=== PATIENT | female | born 1945 | race Caucasian/White ===

== ENCOUNTER 2016-05-26 17:14 | Emergency (ER) | payer MEDICARE ==
[2016-05-26] MEDS ORDERED: MORPHINE IV ONE ×2 (17:18→23:58)
[2016-05-26] MEDS ORDERED: NORMODYNE IV ONE (17:27)
--- NOTE | 2016-05-26 18:02 | Emergency Department Report ---
ED Headache HPI - General Chief Complaint: Headache Stated Complaint: HEADACHE Time Seen by Provider: 05/26/16 17:16 - History of Present Illness Initial Comments: Patient is a 71-year-old female with history of hypertension, diabetes, chronic headaches presenting today because of severe right-sided headache. Patient states that the pain started last night and has slowly come on and gotten worse. She does not have any known history of an aneurysm. Went to see her primary doctor recently of these headaches and recurrent for years and was supposed to have an outpatient MRI in the next few days. Patient has no focal weakness, took tramadol at home with some mild relief. Allergies/Adverse Reactions: Allergies iodine Allergy (Verified 08/27/14 12:53) Rash propofol [From Diprivan] Adverse Reaction (Verified 05/26/16 18:32) Anaphylaxis Home Medications: Ambulatory Orders Advil 100 MG tab 200 mg PO PRN 10/21/15 Dexlansoprazole [Dexilant] 60 mg PO QDAY 10/21/15 Diazepam 10 mg PO HS 10/21/15 Escitalopram [Lexapro] 10 mg PO DAILY 10/21/15 Glimepiride [Amaryl] 2 mg PO BID 10/21/15 Glimepiride [Amaryl] 4 mg PO HS 10/21/15 Lovastatin [Altoprev] 10 mg PO HS 10/21/15 Metoprolol Tartrate 50 mg PO ONCE 10/21/15 amLODIPine [Norvasc] 10 mg PO DAILY 10/21/15 metFORMIN 1,000 mg PO BID 10/21/15 metFORMIN [Glucophage] 500 mg PO HS 10/21/15 Butalb/Acetaminophen/Caffeine [Fioricet 50-300-40 mg CAP] 1 cap PO Q8HR PRN #10 cap 05/27/16 oxyCODONE /ACETAMINOPHEN [Percocet 5/325] 1 tab PO Q6HR PRN #10 tablet 05/27/16 ED Review of Systems ROS: Stated complaint: HEADACHE Other details as noted in HPI Constitutional: no symptoms reported. denies: chills, fever Respiratory: denies: cough Cardiovascular: denies: chest pain Gastrointestinal: denies: abdominal pain, vomiting Skin: denies: rash Neurological: headache. denies: weakness, confusion ED Past Medical Hx - Past Medical History Hx Hypertension: Yes Hx Diabetes: Yes Hx Arthritis: Yes - Surgical History Hx Cholecystectomy: Yes Additional Surgical History: Hysterectomy - Social History Smoking Status: Never Smoker Substance Use Type: None - Medications Home Medications: Home Medications Medication Instructions Recorded Confirmed Last Taken Type Advil 100 MG tab 200 mg PO PRN 10/21/15 10/21/15 Unknown History Dexlansoprazole [Dexilant] 60 mg PO QDAY 10/21/15 10/21/15 Unknown History Diazepam 10 mg PO HS 10/21/15 10/21/15 Unknown History Escitalopram [Lexapro] 10 mg PO DAILY 10/21/15 10/21/15 Unknown History Glimepiride [Amaryl] 2 mg PO BID 10/21/15 10/21/15 Unknown History Glimepiride [Amaryl] 4 mg PO HS 10/21/15 10/21/15 Unknown History Lovastatin [Altoprev] 10 mg PO HS 10/21/15 10/21/15 Unknown History Metoprolol Tartrate 50 mg PO ONCE 10/21/15 10/21/15 Unknown History amLODIPine [Norvasc] 10 mg PO DAILY 10/21/15 10/21/15 Unknown History metFORMIN 1,000 mg PO BID 10/21/15 10/21/15 Unknown History metFORMIN [Glucophage] 500 mg PO HS 10/21/15 10/21/15 Unknown History Butalb/Acetaminophen/Caffeine 1 cap PO Q8HR PRN #10 cap 05/27/16 Unknown Rx [Fioricet 50-300-40 mg CAP] oxyCODONE /ACETAMINOPHEN [Percocet 1 tab PO Q6HR PRN #10 tablet 05/27/16 Unknown Rx 5/325] ED Physical Exam - General Limitations: No Limitations General appearance: alert - Head Head exam: Present: other (no tenderness to the right spiritism area). Absent: atraumatic - Eye Eye exam: Present: normal appearance, PERRL, EOMI. Absent: conjunctival injection, nystagmus, periorbital tenderness Pupils: Present: normal accommodation. Absent: irregular - ENT ENT exam: Present: TM's normal bilaterally (minimal erythema on both tympanic membranes, no exudate or narrowing of the ear canals) - Neck Neck exam: Absent: tenderness, meningismus - Cardiovascular Cardiovascular Exam: Present: regular rate. Absent: normal rhythm - GI/Abdominal GI/Abdominal exam: Present: soft. Absent: distended, tenderness - Extremities Exam Extremities exam: Present: normal inspection. Absent: tenderness - Neurological Exam Neurological exam: Present: alert, CN II-XII intact, other (sensation in all extremities is intact, strength is 5 out of 5 proximally and distally in all extremities, speech is normal and appropriate). Absent: motor sensory deficit - Psychiatric Psychiatric exam: Present: anxious - Skin Skin exam: Present: intact ED Course Vital Signs 05/26/16 05/26/16 05/26/16 17:16 17:18 17:43 Temperature 97.6 F Pulse Rate 61 61 Respiratory 22 20 11 L Rate Blood Pressure Blood Pressure 210/105 213/110 [Left] O2 Sat by Pulse 98 97 Oximetry 05/26/16 05/26/16 18:30 19:21 Temperature Pulse Rate 73 77 Respiratory 12 Rate Blood Pressure 230/115 Blood Pressure 198/98 [Left] O2 Sat by Pulse 98 Oximetry - Reevaluation(s) Reevaluation #1: 05/26/16 18:40 Patient resting comfortably now does not appear in any pain Reevaluation #2: 05/26/16 21:19 Patient still having headache. and family friend revealed that the patient has significant stress right now and she is not speaking to her daughter. They think that this may be a stressor that is primarily causing the symptoms. The patient does have severe headache will do a CTA to rule out any sort of medial more large aneurysm. We'll give pretreatment with Benadryl and hydrocortisone since patient has an allergy to contrast. Reevaluation #3: 05/26/16 23:57 Patient reexamined and still having headache. Her BP improved to 170/100 at this time. 05/26/16 23:59 Reevaluation #4: 05/27/16 00:48 CT of the head without contrast and ct of the head showed no acute abnormalities including no aneurysm. a recent mri in january of last year was also reviewed and showed no significant abnormalities. I offered the patient admission due to her intractable pain, I discussed with the hospitalist plan for admission. I talked to the patient again and she has changed her mind and she preferred to go home. We'll send home with some pain medication and primary care follow-up 05/27/16 01:07 ED Medical Decision Making - Lab Data Result diagrams: 05/26/16 18:20 05/26/16 18:20 - Medical Decision Making IV, labs, head CT, EKG EKG shows sinus bradycardia at a rate of 59, no ST-T changes, unremarkable EKG Labs unremarkable without leukocytosis which could be explained by pain as there is no other clear etiology for it. ESR and CRP checked to look for signs of chance arteritis given that the pain is on the spiritism, these are both normal which significantly decreased the probability of GCA Critical care attestation.: If time is entered above; I have spent that time in minutes in the direct care of this critically ill patient, excluding procedure time. ED Disposition Clinical Impression: Headache Qualifiers: Headache type: unspecified Headache chronicity pattern: unspecified pattern Intractability: intractable Qualified Code(s): R51 - Headache Disposition: DISCHARGED TO HOME OR SELFCARE Is pt being admited?: No Does the pt Need Aspirin: No Condition: Stable Instructions: Acute Headache (ED) Additional Instructions: Please follow up with your primary care doctor in the next 3-5 days. Please also follow up with a neurologist within the next 1-2 weeks. It is important that you return immediately to the emergency room if you notice any numbness in her arms or legs, weakness in her arms or legs, vomiting, neck rigidity or any new symptoms. Do not drive or operate heavy machinery while taking pain medications as they will make you drowsy. Prescriptions: Butalb/Acetaminophen/Caffeine [Fioricet 50-300-40 mg CAP] 1 cap PO Q8HR PRN #10 cap PRN Reason: Pain oxyCODONE /ACETAMINOPHEN [Percocet 5/325] 1 tab PO Q6HR PRN #10 tablet PRN Reason: Pain Referrals: PRIMARY CARE, [Primary Care Provider] - 3-5 Days
[2016-05-26] MEDS ORDERED: ZOFRAN ONE (18:23)
--- NOTE | 2016-05-26 18:23 | Cat Scan Report ---
FINAL REPORT EXAM: CT HEAD/BRAIN WO CON HISTORY: severe right sided headache TECHNIQUE: CT of the head was performed without intravenous contrast. PRIORS: 10/21/2015. FINDINGS: The ventricles are normal in shape and position. The ventricles are nondilated. No intracranial hemorrhage, mass, mass effect, midline shift or evidence of acute ischemic infarct. The basilar cisterns are patent. The paranasal sinuses are clear. The extracranial soft tissues demonstrate no abnormality. The calvarium is intact. The orbits are intact. The mastoid air cells are clear. IMPRESSION: No acute intracranial abnormality.
[2016-05-26] MEDS ORDERED: ZOFRAN IV ONE (18:25)
[2016-05-26] MEDS ORDERED: TORADOL IV ONE (18:37)
[2016-05-26] MEDS ORDERED: REGLAN IV ONE (18:37)
[2016-05-26 18:38] LABS: Hematocrit 47.3 % (30.3-42.9); Mean Corpuscular HGB Conc 34 % (30-34); Mean Corpuscular Hemoglobin 32 pg (28-32); Mean Corpuscular Volume 94 fl (79-97); Platelet Count 203 K/mm3 (140-440); Red Blood Count 5.04 M/mm3 (3.65-5.03); Red Cell Distribution Width 12.9 % (13.2-15.2); White Blood Count 12.8 K/mm3 (4.5-11.0)
[2016-05-26 18:59] LABS: Anion Gap 21 mmol/L; BUN/Creatinine Ratio 28.33; Blood Urea Nitrogen 17 mg/dL (7-17); Calcium 8.7 mg/dL (8.4-10.2); Carbon Dioxide 26 mmol/L (22-30); Chloride 96.3 mmol/L (98-107); Glucose 120 mg/dL (65-100); Potassium 4.6 mmol/L (3.6-5.0); Sodium 139 mmol/L (137-145)
[2016-05-26 19:00] LABS: Erythrocyte Sedimentation Rate 1 mm/Hr (0-20)
[2016-05-26] MEDS ORDERED: TORADOL ONE (19:15)
[2016-05-26] MEDS ORDERED: NACL ONE (20:22)
[2016-05-26] MEDS ORDERED: BENADRYL IV ONE (20:31)
[2016-05-26 21:17] LABS: RBC,Urine < 1.0 /HPF (0.0-6.0); WBC,Urine < 1.0 /HPF (0.0-6.0)
[2016-05-26 21:27] LABS: Bilirubin,Urine Negative (Negative); Blood,Urine Negative (Negative); Ketones,Urine Negative (Negative); Leukocyte Esterase,Urine Negative (Negative); Nitrite,Urine Negative (Negative); Protein,Urine <15 mg/dL mg/dL (Negative); Urobilinogen,Urine < 2.0 mg/dL (<2.0)
--- NOTE | 2016-05-26 23:16 | Cat Scan Report ---
FINAL REPORT PROCEDURE: CT angiogram head. TECHNIQUE: Computerized tomographic angiography of the head was performed after the IV injection of iodinated nonionic contrast including image processing. The image data was postprocessed using 2-dimensional multiplanar reformatted (MPR) and 3-dimensional (MIP and/or volume rendered) techniques. HISTORY: Severe headache. COMPARISON: Unenhanced head CT scan 05/26/2016. FINDINGS: There is moderate atherosclerotic narrowing of the cavernous portion of the right internal carotid artery. The distal left internal carotid artery has a more normal caliber. The A1 segment of the right anterior cerebral artery is hypoplastic. The left A1 segment has a normal caliber. Both anterior cerebral arteries fill via a patent anterior communicating artery. The posterior communicating arteries are not visualized. Both distal vertebral arteries are patent. The left posterior inferior cerebellar artery is patent. 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 The basilar artery is patent. The right anterior inferior cerebellar artery is patent and probably supplies both the [place] and [place] territories. Both superior cerebellar arteries are patent. The left posterior cerebral artery is patent. The right posterior cerebral artery is small and incompletely visualized. There is no evidence of aneurysm disease. There are no signs of a vasculitis. The brain parenchyma appears normal. There are no signs of abnormal contrast enhancement. 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 Incomplete visualization of the right posterior cerebral artery. No evidence of aneurysm disease.
[2016-05-27 01:32] VITALS: BP 151/83
== END 2016-05-27 01:31 | disposition home or self-care (01) ==
LOC: ED 17:14
DX: R51 Headache (principal); I10 Essential (primary) hypertension; E11.9 Type 2 diabetes mellitus without complications; Z87.39 Personal history of other diseases of the musculoskeletal system and connective tissue; Z90.710 Acquired absence of both cervix and uterus
CPT/HCPCS: 36415; 70450; 70496; 80048; 81001; 84484; 85027; 85652; 86140; 93005; 93010; 96374; 96375; 96376; 99284; J1200; J1720; J1885; J2270; J2405; Q9967

== ENCOUNTER 2017-02-06 23:11 | Emergency (ER) | payer MEDICARE ==
[2017-02-06 23:50] LABS: Basophils % (Auto) 0.6 % (0.0-1.8); Eosinophils % (Auto) 3.7 % (0.0-4.3); Hematocrit 42.7 % (30.3-42.9); Hemoglobin 14.5 gm/dl (10.1-14.3); Mean Corpuscular HGB Conc 34 % (30-34); Mean Corpuscular Hemoglobin 32 pg (28-32); Mean Corpuscular Volume 94 fl (79-97); Platelet Count 210 K/mm3 (140-440); Red Blood Count 4.52 M/mm3 (3.65-5.03); Red Cell Distribution Width 13.2 % (13.2-15.2); White Blood Count 10.5 K/mm3 (4.5-11.0)
[2017-02-07 00:12] LABS: Alanine Aminotransferase 22 units/L (7-56); Albumin/Globulin Ratio 1.5 %; Alkaline Phosphatase 55 units/L (35-129); BUN/Creatinine Ratio 33; Blood Urea Nitrogen 26 mg/dL (7-17); Calcium 8.4 mg/dL (8.4-10.2); Carbon Dioxide 27 mmol/L (22-30); Chloride 99.4 mmol/L (98-107); Glucose 275 mg/dL (65-100); Potassium 4.2 mmol/L (3.6-5.0); Sodium 140 mmol/L (137-145); Total Protein 6.7 g/dL (6.3-8.2)
[2017-02-07 00:46] LABS: Anion Gap 18 mmol/L
[2017-02-07] MEDS ORDERED: NACL 0.9% 1000 ML 1,000 ML IV ONE (03:08)
--- NOTE | 2017-02-07 03:37 | Emergency Department Report ---
ED General Adult HPI - General Chief complaint: Hyperglycemia Stated complaint: HIGH BLOOD SUGAR Time Seen by Provider: 02/07/17 03:29 Source: patient Mode of arrival: Ambulatory Limitations: Language Barrier - History of Present Illness Initial comments: 71-year-old female presents with complaint of bilateral ear pain for the last 4 days and elevated blood sugar. Patient states she's had elevated blood sugars in the 300s over the course last several days. She denies fevers chills nausea vomiting. States she's had some ear pressure over the last 4 days. No change in her hearing. She feels the pain is worse in the morning. -: days(s) (4) Location: head Radiation: non-radiation Quality: aching Consistency: constant Improves with: none Associated Symptoms: weakness. denies: confusion, chest pain, cough, diaphoresis, fever/chills, headaches, loss of appetite, malaise, nausea/vomiting - Related Data Home Medications Medication Instructions Recorded Confirmed Last Taken Advil 100 MG tab 200 mg PO PRN 10/21/15 10/21/15 Unknown Dexlansoprazole [Dexilant] 60 mg PO QDAY 10/21/15 10/21/15 Unknown Diazepam 10 mg PO HS 10/21/15 10/21/15 Unknown Escitalopram [Lexapro] 10 mg PO DAILY 10/21/15 10/21/15 Unknown Glimepiride [Amaryl] 2 mg PO BID 10/21/15 10/21/15 Unknown Glimepiride [Amaryl] 4 mg PO HS 10/21/15 10/21/15 Unknown Lovastatin [Altoprev] 10 mg PO HS 10/21/15 10/21/15 Unknown Metoprolol Tartrate 50 mg PO ONCE 10/21/15 10/21/15 Unknown amLODIPine [Norvasc] 10 mg PO DAILY 10/21/15 10/21/15 Unknown metFORMIN 1,000 mg PO BID 10/21/15 10/21/15 Unknown metFORMIN [Glucophage] 500 mg PO HS 10/21/15 10/21/15 Unknown Previous Rx's Medication Instructions Recorded Last Taken Type Butalb/Acetaminophen/Caffeine 1 cap PO Q8HR PRN #10 cap 05/27/16 Unknown Rx [Fioricet 50-300-40 mg CAP] oxyCODONE /ACETAMINOPHEN [Percocet 1 tab PO Q6HR PRN #10 tablet 05/27/16 Unknown Rx 5/325] Fluticasone [Flonase] 1 spray NS QDAY #1 bottle 02/07/17 Unknown Rx Oxymetazoline HCl [Nasal Pinon] 30 ml NS Q2HR #1 mist 02/07/17 Unknown Rx Allergies Allergy/AdvReac Type Severity Reaction Status Date / Time iodine Allergy Rash Verified 08/27/14 12:53 propofol [From Diprivan] AdvReac Anaphylaxis Verified 05/26/16 18:32 ED Review of Systems ROS: Stated complaint: HIGH BLOOD SUGAR Other details as noted in HPI Comment: All other systems reviewed and negative Eyes: denies: eye pain, eye discharge, vision change ENT: ear pain. denies: throat pain, dental pain Respiratory: denies: cough, orthopnea, shortness of breath Cardiovascular: denies: chest pain, palpitations Gastrointestinal: denies: abdominal pain, nausea Musculoskeletal: denies: back pain, joint swelling, arthralgia ED Past Medical Hx - Past Medical History Previous Medical History?: Yes Hx Hypertension: Yes Hx Diabetes: Yes Hx Arthritis: Yes - Surgical History Past Surgical History?: Yes Hx Cholecystectomy: Yes Additional Surgical History: Hysterectomy - Family History Family history: no significant - Social History Smoking Status: Never Smoker Substance Use Type: None - Medications Home Medications: Home Medications Medication Instructions Recorded Confirmed Last Taken Type Advil 100 MG tab 200 mg PO PRN 10/21/15 10/21/15 Unknown History Dexlansoprazole [Dexilant] 60 mg PO QDAY 10/21/15 10/21/15 Unknown History Diazepam 10 mg PO HS 10/21/15 10/21/15 Unknown History Escitalopram [Lexapro] 10 mg PO DAILY 10/21/15 10/21/15 Unknown History Glimepiride [Amaryl] 2 mg PO BID 10/21/15 10/21/15 Unknown History Glimepiride [Amaryl] 4 mg PO HS 10/21/15 10/21/15 Unknown History Lovastatin [Altoprev] 10 mg PO HS 10/21/15 10/21/15 Unknown History Metoprolol Tartrate 50 mg PO ONCE 10/21/15 10/21/15 Unknown History amLODIPine [Norvasc] 10 mg PO DAILY 10/21/15 10/21/15 Unknown History metFORMIN 1,000 mg PO BID 10/21/15 10/21/15 Unknown History metFORMIN [Glucophage] 500 mg PO HS 10/21/15 10/21/15 Unknown History Butalb/Acetaminophen/Caffeine 1 cap PO Q8HR PRN #10 cap 05/27/16 Unknown Rx [Fioricet 50-300-40 mg CAP] oxyCODONE /ACETAMINOPHEN [Percocet 1 tab PO Q6HR PRN #10 tablet 05/27/16 Unknown Rx 5/325] Fluticasone [Flonase] 1 spray NS QDAY #1 bottle 02/07/17 Unknown Rx Oxymetazoline HCl [Nasal Pinon] 30 ml NS Q2HR #1 mist 02/07/17 Unknown Rx ED Physical Exam - General Limitations: Language Barrier General appearance: alert, in no apparent distress - Head Head exam: Present: atraumatic, normocephalic - Eye Eye exam: Present: normal appearance, PERRL, EOMI. Absent: scleral icterus, conjunctival injection - ENT ENT exam: Present: mucous membranes moist, normal external ear exam - Expanded ENT Exam Expanded TM/Canal exam: Bulging: Right TM, Left TM (no erythema) - Neck Neck exam: Present: normal inspection - Respiratory Respiratory exam: Present: normal lung sounds bilaterally. Absent: respiratory distress, wheezes - Cardiovascular Cardiovascular Exam: Present: regular rate, normal rhythm, normal heart sounds. Absent: systolic murmur, diastolic murmur, rubs, gallop - GI/Abdominal GI/Abdominal exam: Present: soft, normal bowel sounds. Absent: distended, tenderness - Extremities Exam Extremities exam: Present: normal inspection - Back Exam Back exam: Present: normal inspection - Neurological Exam Neurological exam: Present: alert, oriented X3 - Psychiatric Psychiatric exam: Present: normal affect, normal mood - Skin Skin exam: Present: warm, dry, intact, normal color. Absent: rash ED Course Vital Signs 02/06/17 02/06/17 02/07/17 23:19 23:24 03:30 Temperature 98.0 F 98.0 F 98.1 F Pulse Rate 61 53 L 85 Respiratory 18 17 16 Rate Blood Pressure 188/89 188/89 Blood Pressure 129/75 [Left] O2 Sat by Pulse 96 96 98 Oximetry ED Medical Decision Making - Lab Data Result diagrams: 02/06/17 23:33 02/06/17 23:33 Laboratory Results - last 24 hr 02/06/17 02/06/17 02/06/17 23:22 23:33 23:33 WBC 10.5 RBC 4.52 Hgb 14.5 H Hct 42.7 MCV 94 MCH 32 MCHC 34 RDW 13.2 Plt Count 210 Lymph % (Auto) 35.6 H [place] % (Auto) 8.9 H Eos % (Auto) 3.7 Baso % (Auto) 0.6 Lymph # 3.7 [place] # 0.9 H Eos # 0.4 Baso # 0.1 Seg Neutrophils % 51.2 Seg Neutrophils # 5.4 Sodium 140 Potassium 4.2 Chloride 99.4 Carbon Dioxide 27 Anion Gap 18 BUN 26 H Creatinine 0.8 Estimated GFR > 60 BUN/Creatinine Ratio 33 Glucose 275 H POC Glucose 259 H Calcium 8.4 Total Bilirubin 0.20 AST 27 ALT 22 Alkaline Phosphatase 55 Total Protein 6.7 Albumin 4.0 Albumin/Globulin Ratio 1.5 - Medical Decision Making 71-year-old female here with slightly elevated blood sugars and ear pain. Patient states she's had bilateral pain for the past 4 days. She has slightly bulging TMs without evidence of infection. Plan to treat her with nasal saline and steroids. Discussed need to monitor blood sugars closely while using any steroids. Rest of chemistries appear unremarkable. Plan discharge patient home after IV fluids. Portions of this chart were dictated with dictation software. There may be dictation errors contained within this note. Critical care attestation.: If time is entered above; I have spent that time in minutes in the direct care of this critically ill patient, excluding procedure time. ED Disposition Clinical Impression: Ear ache, Hyperglycemia Disposition: - TO HOME OR SELFCARE Is pt being admited?: No Condition: Stable Prescriptions: Fluticasone [Flonase] 1 spray NS QDAY #1 bottle Oxymetazoline HCl [Nasal Pinon] 30 ml NS Q2HR #1 mist Referrals: PRIMARY CARE, [Primary Care Provider] - 3-5 Days
[2017-02-07 04:29] LABS: Bilirubin,Urine NEG (Negative); Blood,Urine NEG (Negative); Ketones,Urine NEG (Negative); Leukocyte Esterase,Urine TR (Negative); Mucus,Urine 3+ /HPF; Nitrite,Urine NEG (Negative); Protein,Urine <15 mg/dL mg/dL (Negative)
[2017-02-07 05:09] VITALS: BP 111/75
== END 2017-02-07 05:11 | disposition home or self-care (01) ==
LOC: ED 23:11
DX: E11.65 Type 2 diabetes mellitus with hyperglycemia (principal); H92.03 Otalgia, bilateral
CPT/HCPCS: 36415; 80053; 81001; 82962; 85025; 96360; 99283; J7030

== ENCOUNTER 2017-03-30 16:18 | Emergency (ER) | payer MEDICARE ==
[2017-03-30 17:34] LABS: Basophils % (Auto) 0.6 % (0.0-1.8); Eosinophils % (Auto) 3.9 % (0.0-4.3); Hematocrit 42.6 % (30.3-42.9); Hemoglobin 14.6 gm/dl (10.1-14.3); Mean Corpuscular HGB Conc 34 % (30-34); Mean Corpuscular Hemoglobin 33 pg (28-32); Mean Corpuscular Volume 95 fl (79-97); Platelet Count 212 K/mm3 (140-440); Red Blood Count 4.47 M/mm3 (3.65-5.03); Red Cell Distribution Width 12.6 % (13.2-15.2); White Blood Count 11.7 K/mm3 (4.5-11.0)
[2017-03-30 17:39] LABS: Anion Gap 20 mmol/L; BUN/Creatinine Ratio 30; Blood Urea Nitrogen 21 mg/dL (7-17); Calcium 8.5 mg/dL (8.4-10.2); Carbon Dioxide 27 mmol/L (22-30); Chloride 96.2 mmol/L (98-107); Glucose 269 mg/dL (65-100); Potassium 4.9 mmol/L (3.6-5.0); Sodium 138 mmol/L (137-145)
[2017-03-30] MEDS ORDERED: PROVENTIL IH ONE (23:44)
[2017-03-30] MEDS ORDERED: ATROVENT IH ONE (23:44)
--- NOTE | 2017-03-31 01:24 | Emergency Department Report ---
- General Chief Complaint: Upper Respiratory Infection Stated Complaint: CHEST PAIN,COUGHING Time Seen by Provider: 03/30/17 23:36 Source: patient, family Mode of arrival: Ambulatory Limitations: Language Barrier - History of Present Illness Initial Comments: Patient with cough and chest pain progressively worse for over a month after she got her flu shot. She has not taken any meds. She does have DM but her last A1c was 7.0. No F/C. MD Complaint: cough, sore throat, rhinorrhea, nasal congestion -: Gradual, week(s) (4) Severity: moderate Severity scale (0 -10): 4 Quality: dull Consistency: constant Improves With: nothing Worsens With: nothing Associated Symptoms: denies other symptoms, rhinorrhea, cough Treatments Prior to Arrival: Acetaminophen - Related Data Home Medications Medication Instructions Recorded Confirmed Last Taken Advil 100 MG tab 200 mg PO PRN 10/21/15 10/21/15 Unknown Dexlansoprazole [Dexilant] 60 mg PO QDAY 10/21/15 10/21/15 Unknown Diazepam 10 mg PO HS 10/21/15 10/21/15 Unknown Escitalopram [Lexapro] 10 mg PO DAILY 10/21/15 10/21/15 Unknown Glimepiride [Amaryl] 2 mg PO BID 10/21/15 10/21/15 Unknown Glimepiride [Amaryl] 4 mg PO HS 10/21/15 10/21/15 Unknown Lovastatin [Altoprev] 10 mg PO HS 10/21/15 10/21/15 Unknown Metoprolol Tartrate 50 mg PO ONCE 10/21/15 10/21/15 Unknown amLODIPine [Norvasc] 10 mg PO DAILY 10/21/15 10/21/15 Unknown metFORMIN 1,000 mg PO BID 10/21/15 10/21/15 Unknown metFORMIN [Glucophage] 500 mg PO HS 10/21/15 10/21/15 Unknown Previous Rx's Medication Instructions Recorded Last Taken Type Butalb/Acetaminophen/Caffeine 1 cap PO Q8HR PRN #10 cap 05/27/16 Unknown Rx [Fioricet 50-300-40 mg CAP] oxyCODONE /ACETAMINOPHEN [Percocet 1 tab PO Q6HR PRN #10 tablet 05/27/16 Unknown Rx 5/325] Fluticasone [Flonase] 1 spray NS QDAY #1 bottle 02/07/17 Unknown Rx Oxymetazoline HCl [Nasal Conway] 30 ml NS Q2HR #1 mist 02/07/17 Unknown Rx Albuterol Sulfate [Albuterol 0.63% 0.63 mg IH TID PRN #25 ml 03/31/17 Unknown Rx NEBS] predniSONE [Deltasone] 20 mg PO QDAY 5 Days #5 tab 03/31/17 Unknown Rx Allergies Allergy/AdvReac Type Severity Reaction Status Date / Time iodine Allergy Rash Verified 08/27/14 12:53 propofol [From Diprivan] AdvReac Anaphylaxis Verified 05/26/16 18:32 ED Review of Systems ROS: Stated complaint: CHEST PAIN,COUGHING Other details as noted in HPI Constitutional: denies: chills, fever Eyes: denies: eye pain, eye discharge, vision change ENT: denies: ear pain, throat pain Respiratory: cough, SOB with exertion, SOB at rest. denies: shortness of breath , wheezing Cardiovascular: denies: chest pain, palpitations Endocrine: no symptoms reported Gastrointestinal: denies: abdominal pain, nausea, diarrhea Genitourinary: denies: urgency, dysuria, discharge Musculoskeletal: denies: back pain, joint swelling, arthralgia Skin: denies: rash, lesions Neurological: denies: headache, weakness, paresthesias Psychiatric: denies: anxiety, depression Hematological/Lymphatic: denies: easy bleeding, easy bruising ED Past Medical Hx - Past Medical History Previous Medical History?: Yes Hx Hypertension: Yes Hx Diabetes: Yes Hx Arthritis: Yes - Surgical History Past Surgical History?: Yes Hx Cholecystectomy: Yes Additional Surgical History: Hysterectomy - Social History Smoking Status: Never Smoker Substance Use Type: None - Medications Home Medications: Home Medications Medication Instructions Recorded Confirmed Last Taken Type Advil 100 MG tab 200 mg PO PRN 10/21/15 10/21/15 Unknown History Dexlansoprazole [Dexilant] 60 mg PO QDAY 10/21/15 10/21/15 Unknown History Diazepam 10 mg PO HS 10/21/15 10/21/15 Unknown History Escitalopram [Lexapro] 10 mg PO DAILY 10/21/15 10/21/15 Unknown History Glimepiride [Amaryl] 2 mg PO BID 10/21/15 10/21/15 Unknown History Glimepiride [Amaryl] 4 mg PO HS 10/21/15 10/21/15 Unknown History Lovastatin [Altoprev] 10 mg PO HS 10/21/15 10/21/15 Unknown History Metoprolol Tartrate 50 mg PO ONCE 10/21/15 10/21/15 Unknown History amLODIPine [Norvasc] 10 mg PO DAILY 10/21/15 10/21/15 Unknown History metFORMIN 1,000 mg PO BID 10/21/15 10/21/15 Unknown History metFORMIN [Glucophage] 500 mg PO HS 10/21/15 10/21/15 Unknown History Butalb/Acetaminophen/Caffeine 1 cap PO Q8HR PRN #10 cap 05/27/16 Unknown Rx [Fioricet 50-300-40 mg CAP] oxyCODONE /ACETAMINOPHEN [Percocet 1 tab PO Q6HR PRN #10 tablet 05/27/16 Unknown Rx 5/325] Fluticasone [Flonase] 1 spray NS QDAY #1 bottle 02/07/17 Unknown Rx Oxymetazoline HCl [Nasal Conway] 30 ml NS Q2HR #1 mist 02/07/17 Unknown Rx Albuterol Sulfate [Albuterol 0.63% 0.63 mg IH TID PRN #25 ml 03/31/17 Unknown Rx NEBS] predniSONE [Deltasone] 20 mg PO QDAY 5 Days #5 tab 03/31/17 Unknown Rx ED Physical Exam - General Limitations: Language Barrier General appearance: alert, in no apparent distress - Head Head exam: Present: atraumatic, normocephalic - Eye Eye exam: Present: normal appearance - ENT ENT exam: Present: mucous membranes moist - Neck Neck exam: Present: normal inspection - Respiratory Respiratory exam: Present: normal lung sounds bilaterally, wheezes (Faint wheeze with deep breathing. Improved after nebulizer treatment.). Absent: respiratory distress - Cardiovascular Cardiovascular Exam: Present: regular rate, normal rhythm. Absent: systolic murmur, diastolic murmur, rubs, gallop - GI/Abdominal GI/Abdominal exam: Present: soft, normal bowel sounds - Extremities Exam Extremities exam: Present: normal inspection - Back Exam Back exam: Present: normal inspection - Neurological Exam Neurological exam: Present: alert, oriented X3 - Psychiatric Psychiatric exam: Present: normal affect, normal mood - Skin Skin exam: Present: warm, dry, intact, normal color. Absent: rash ED Course Vital Signs 03/30/17 03/30/17 03/30/17 16:46 23:20 23:30 Temperature 98.1 F Pulse Rate 75 76 72 Pulse Rate [ Anterior Bilateral Throughout] Respiratory 20 12 15 Rate Respiratory Rate [Anterior Bilateral Throughout] Blood Pressure 177/92 171/78 O2 Sat by Pulse 95 Oximetry 03/30/17 03/31/17 03/31/17 23:45 00:42 00:56 Temperature Pulse Rate 81 66 Pulse Rate [ 67 Anterior Bilateral Throughout] Respiratory 17 14 Rate Respiratory 18 Rate [Anterior Bilateral Throughout] Blood Pressure 179/92 O2 Sat by Pulse Oximetry 03/31/17 03/31/17 01:00 01:22 Temperature Pulse Rate Pulse Rate [ 81 Anterior Bilateral Throughout] Respiratory 18 Rate Respiratory 17 Rate [Anterior Bilateral Throughout] Blood Pressure O2 Sat by Pulse Oximetry ED Medical Decision Making - Lab Data Result diagrams: 03/30/17 17:04 03/30/17 17:04 - EKG Data EKG shows normal: sinus rhythm, axis, intervals, QRS complexes, ST-T waves Rate: normal - EKG Data Interpretation: normal EKG - Radiology Data Radiology results: report reviewed CXR wnl. no acute findings. - Medical Decision Making patient with asthmatic bronchitis. Will do steroid shot and prednisone low dose for 5 days with albuterol. She appears to have controlled DM but I did warn patient about elevated glucose with steroids. Will need to follow up with her PCP.Patient was given clonidine 0.2 mg to help reduce her BP. Critical care attestation.: If time is entered above; I have spent that time in minutes in the direct care of this critically ill patient, excluding procedure time. ED Disposition Clinical Impression: Reactive airway disease Qualifiers: Asthma severity: moderate Asthma persistence: persistent Asthma complication type: with acute exacerbation Qualified Code(s): J45.41 - Moderate persistent asthma with (acute) exacerbation Hypertension Qualifiers: Hypertension type: essential hypertension Qualified Code(s): I10 - Essential ( primary) hypertension Disposition: DC-01 TO HOME OR SELFCARE Is pt being admited?: No Does the pt Need Aspirin: No Condition: Good Instructions: Hypertension (ED), Reactive Airways Disease (ED) Prescriptions: Albuterol Sulfate [Albuterol 0.63% NEBS] 0.63 mg IH TID PRN #25 ml PRN Reason: Wheezing predniSONE [Deltasone] 20 mg PO QDAY 5 Days #5 tab Referrals: PRIMARY CARE, [Primary Care Provider] - 3-5 Days GABRIELE ABRAHAM MD [Staff Physician] - 3-5 Days Time of Disposition: 01:39
[2017-03-31] MEDS ORDERED: CATAPRES PO ONE (01:32)
[2017-03-31 03:05] VITALS: BP 183/98
--- NOTE | 2017-03-31 07:30 | XRay Report ---
ROUTINE CHEST, TWO VIEWS: HISTORY: Shortness of breath. The trachea, heart, mediastinal contour, lung bhat and bony thorax are unremarkable. IMPRESSION: Unremarkable chest x-ray.
== END 2017-03-31 02:45 | disposition home or self-care (01) ==
LOC: ED 16:18
DX: J45.41 Moderate persistent asthma with (acute) exacerbation (principal); I10 Essential (primary) hypertension; E11.9 Type 2 diabetes mellitus without complications
CPT/HCPCS: 36415; 71020; 80048; 82962; 83880; 84484; 85025; 93005; 93010; 94640

== ENCOUNTER 2017-06-06 12:14 | Outpatient (CLI) | payer MEDICARE ==
--- NOTE | 2017-06-06 14:14 | XRay Report ---
ROUTINE CHEST, TWO VIEWS: HISTORY: Dizziness, giddiness. The trachea, heart, mediastinal contour, lung bhat and bony thorax are unremarkable. IMPRESSION: Unremarkable chest x-ray.
--- NOTE | 2017-06-15 10:06 | Vascular Lab Report ---
CAROTID DUPLEX STUDY: RIGHT PSVEDV CCA PROX:7910 CCA DIST:7910 ICA PROX:7512 ICA MID:5413 ICA DIST:5012 ECA: 1208 VERT: 64 17 LEFT PSVEDV CCA PROX:8916 CCA DIST:7817 ICA PROX:9027 ICA MID:8017 ICA DIST:6719 ECA: 760 VERT: 46 8 REASON FOR EXAM: Carotid artery stenosis. COMMENTS ON THE RIGHT: Doppler frequency analysis is consistent with 16 to 49 percent diameter reduction of the internal carotid artery. A small amount of eccentric plaque is seen. The common carotid artery is patent. The external carotid artery is patent. The vertebral artery has antegrade flow. COMMENTS ON THE LEFT: Doppler frequency analysis is consistent with 16 to 49 percent diameter reduction of the internal carotid artery. A small amount of plaque seen. The common carotid artery is patent. The external carotid artery is patent. The vertebral artery has antegrade flow. IMPRESSION: Less than 50% diameter reduction in the internal carotid arteries bilaterally. Consider repeat carotid artery duplex in 12 months.
== END 2017-06-06 12:15 | disposition home or self-care (01) ==
LOC: XRAY 12:14
PROVIDERS: ATTEND Internal Medicine
DX: I65.23 Occlusion and stenosis of bilateral carotid arteries (principal)
CPT/HCPCS: 71046; 93880

== ENCOUNTER 2018-06-08 13:57 | Outpatient (CLI) | payer MEDICARE ==
--- NOTE | 2018-06-08 16:43 | Vascular Lab Report ---
FINAL REPORT EXAM: VL CAROTID DUPLEX BILAT HISTORY: Occlusion and stenosis of bilateral carotid arteries TECHNIQUE: Carotid ultrasound. Degree of carotid stenosis calculated by indirect methods via the pea k systolic velocities of the ICA and CCA and reference with the society of Radiologist and Ultras[employer] consensus conference radiology 2003. PRIORS: None currently available. FINDINGS: RIGHT CCA, ICA, and ECA (cm/s): 111, 69, and 103. LEFT CCA, ICA, and ECA (cm/s): 103, 98, and 90. There is plaque in both carotids. Both vertebral arteries demonstrate antegrade flow. Normal spectral rhythm is identified. IMPRESSION: No hemodynamically significant (>50%) stenosis noted based on the ratios, velocities, and color Do ppler images.
== END 2018-06-08 13:58 | disposition home or self-care (01) ==
LOC: VAS 13:57
PROVIDERS: ATTEND Internal Medicine
DX: I65.23 Occlusion and stenosis of bilateral carotid arteries (principal); I10 Essential (primary) hypertension; M19.90 Unspecified osteoarthritis, unspecified site; Z90.49 Acquired absence of other specified parts of digestive tract; Z90.710 Acquired absence of both cervix and uterus
CPT/HCPCS: 93880

== ENCOUNTER 2018-09-14 08:17 | Outpatient (CLI) | payer MEDICARE ==
[2018-09-14 10:26] LABS: Chol/HDL Ratio 4.08 %
[2018-09-19 12:53] LABS: Vitamin D, 25-OH, D2 40 ng/mL
== END 2018-09-14 08:18 | disposition home or self-care (01) ==
LOC: LAB 08:17
PROVIDERS: ATTEND Internal Medicine
DX: E11.9 Type 2 diabetes mellitus without complications (principal); E78.2 Mixed hyperlipidemia; E55.9 Vitamin D deficiency, unspecified; I10 Essential (primary) hypertension; M19.90 Unspecified osteoarthritis, unspecified site; Z90.710 Acquired absence of both cervix and uterus; Z90.49 Acquired absence of other specified parts of digestive tract
CPT/HCPCS: 36415; 80061; 82306; 83036

== ENCOUNTER 2018-09-29 09:12 | Outpatient (CLI) | payer MEDICARE ==
[2018-09-29 10:22] LABS: Alanine Aminotransferase 22 units/L (7-56); Albumin 4.5 g/dL (3.9-5); BUN/Creatinine Ratio 19; Blood Urea Nitrogen 15 mg/dL (7-17); Calcium 8.5 mg/dL (8.4-10.2); Hemolysis Index 0
== END 2018-09-29 09:13 | disposition home or self-care (01) ==
LOC: LAB 09:12
PROVIDERS: ATTEND Internal Medicine
DX: B18.2 Chronic viral hepatitis C (principal); I10 Essential (primary) hypertension; E11.9 Type 2 diabetes mellitus without complications; Z90.710 Acquired absence of both cervix and uterus
CPT/HCPCS: 36415; 80053; 87517

== ENCOUNTER 2018-10-03 07:52 | Outpatient (CLI) | payer MEDICARE ==
[~2018-10-03 07:52] MED LIST: WATER FOR IRRIG STERILE IR ONE
--- NOTE | 2018-10-03 09:17 | Ultrasound Report ---
ULTRASOUND ABDOMEN LIMITED: TECHNIQUE: Transabdominal ultrasound with color Doppler interrogation. HISTORY: Chronic viral hepatitis see. COMPARISON: none. FINDINGS: LIVER: The liver parenchyma is echogenic and attenuates the ultrasound beam consistent with diffuse fatty infiltration or other parenchymal disease. There is no evidence for enlargement, surface nodularity or focal liver mass. BILIARY SYSTEM: Cholecystectomy. The CBD measures 5 mm. PANCREAS: Poorly visualized. Within normal limits. RIGHT KIDNEY: Normal. PROXIMAL AORTA: Normal. ASCITES: None. IMPRESSION: Echogenic liver consistent with diffuse fatty infiltration or other parenchymal disease. No focal liver mass is identified. Cholecystectomy.
== END 2018-10-03 07:53 | disposition home or self-care (01) ==
LOC: VAS 07:52 → US 07:53
PROVIDERS: ATTEND Internal Medicine
DX: B18.2 Chronic viral hepatitis C (principal); I10 Essential (primary) hypertension; Z90.710 Acquired absence of both cervix and uterus
CPT/HCPCS: 76705

== ENCOUNTER 2018-10-12 11:20 | Outpatient (CLI) | payer MEDICARE ==
[2018-10-12 11:47] LABS: Blood Urea Nitrogen 16 mg/dL (7-17)
--- NOTE | 2018-10-16 15:54 | Cat Scan Report ---
PROCEDURE: CT ABDOMEN PELVIS W CON TECHNIQUE: Computerized axial tomography of the abdomen and pelvis was performed after the IV inject ion of iodinated nonionic contrast. CT DOSE LENGTH PRODUCT: 2889.43 mGycm HISTORY: CHRONIC VIRAL HEPATITIS FINDINGS: Contrast-enhanced CT of the abdomen and pelvis was performed following the intravenous admi nistration of iodinated contrast. There is coronary artery calcification. The lung bases appear clear. ABDOMEN: There is fatty infiltration of the liver without focal hepatic lesion. There is enlargement of the la teral segment left lobe of liver and of the caudate lobe, consistent with cirrhotic change. No suspec t focal lesion is seen. There are calcified splenic granulomas. The adrenal glands and pancreas are within normal limits. There is a 0.5 cm right nonobstructing renal calculus. No ureteral calculus or hydronephrosis is iden tified. There is wall thickening of the transverse colon and descending colon sigmoid colon and rectum consis tent with segmental colitis and proctitis. There is no free air. The abdominal aorta is atherosclerotic but normal in size. The celiac axis is widely patent. 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 The infer ior mesenteric artery is patent. Pelvis: There is a normal appendix. There is no evidence of diverticulitis. The urinary bladder is collapsed but is unremarkable. There are bilateral pars defects at L5 with 0.8 cm anterolisthesis of L5 on S1. IMPRESSION: ABDOMEN: Fatty infiltration of the liver Colitis of distal transverse colon, descending colon, sigmoid colon and proctitis of the rectum Pelvis: Normal appendix All CT scans at this location are performed using dose modulation techniques as appropriate to a perf ormed exam including the following: automated exposure control, adjustment of the mA and/or kV accord ing to patient size (this includes techniques or standardized protocols for targeted exams where dose is matched to indication/reason for exam, i.e.extremities or head; use of imaging [id number] This document is electronically signed by Ryan Geronimo MD., October 16 2018 03:51:57 PM ET
== END 2018-10-12 11:21 | disposition home or self-care (01) ==
LOC: CT 11:20
PROVIDERS: ATTEND Internal Medicine
DX: K76.0 Fatty (change of) liver, not elsewhere classified (principal); K52.89 Other specified noninfective gastroenteritis and colitis; B18.2 Chronic viral hepatitis C; I10 Essential (primary) hypertension; Z90.710 Acquired absence of both cervix and uterus
CPT/HCPCS: 36415; 74177; 82565; 84520; Q9967

== ENCOUNTER 2019-01-03 10:21 | Outpatient (CLI) | payer MEDICARE ==
[2019-01-03 10:54] LABS: Hematocrit 43.5 % (30.3-42.9); Hemoglobin 15.1 gm/dl (10.1-14.3); Mean Corpuscular HGB Conc 35 % (30-34); Mean Corpuscular Volume 95 fl (79-97); Platelet Count 209 K/mm3 (140-440); Red Cell Distribution Width 12.4 % (13.2-15.2)
[2019-01-03 11:17] LABS: BUN/Creatinine Ratio 14; Blood Urea Nitrogen 10 mg/dL (7-17); Calcium 8.7 mg/dL (8.4-10.2); Chol/HDL Ratio 3.97 %; HDL Cholesterol 42 mg/dL (40-59); Hemolysis Index 3; LDL Cholesterol,Direct 116 mg/dL (50-130)
[2019-01-05 07:57] LABS: Vitamin D, 25-OH, D2 20 ng/mL
== END 2019-01-03 10:22 | disposition home or self-care (01) ==
LOC: LAB 10:21
PROVIDERS: ATTEND Internal Medicine
DX: Z13.29 Encounter for screening for other suspected endocrine disorder (principal); E11.9 Type 2 diabetes mellitus without complications; E78.2 Mixed hyperlipidemia; E55.9 Vitamin D deficiency, unspecified
CPT/HCPCS: 36415; 80048; 80061; 82306; 82607; 83036; 84443; 85027

== ENCOUNTER 2019-05-17 08:42 | Outpatient (CLI) | payer MEDICARE ==
[2019-05-17 13:47] LABS: Chol/HDL Ratio 3.95 %
== END 2019-05-17 08:43 | disposition home or self-care (01) ==
LOC: LAB 08:42
PROVIDERS: ATTEND Internal Medicine
DX: E11.9 Type 2 diabetes mellitus without complications (principal); E78.2 Mixed hyperlipidemia; B18.2 Chronic viral hepatitis C
CPT/HCPCS: 36415; 80061; 83036

== ENCOUNTER 2019-10-11 09:39 | Outpatient (CLI) | payer MEDICARE ==
[2019-10-11 10:36] LABS: Alanine Aminotransferase 16 units/L (7-56); Albumin 4.2 g/dL (3.9-5)
[2019-10-11 10:38] LABS: Bilirubin,Direct < 0.2 mg/dL (0-0.2)
== END 2019-10-11 09:40 | disposition home or self-care (01) ==
LOC: LAB 09:39
PROVIDERS: ATTEND Internal Medicine
DX: E11.9 Type 2 diabetes mellitus without complications (principal); B18.2 Chronic viral hepatitis C
CPT/HCPCS: 36415; 80076; 83036; 87517

== ENCOUNTER 2020-01-18 11:48 | Inpatient (IN) | payer MEDICARE ==
--- NOTE | 2020-01-18 13:43 | XRay Report ---
CHEST 1 VIEW INDICATION: weakness. COMPARISON: None. FINDINGS: Support devices: None. Heart: Normal. Lungs/Pleura: No acute pulmonary or pleural findings. IMPRESSION: 1. No acute findings. Signer Name: Hipolito Matson MD Signed: 01/18/2020 1:38 PM Workstation Name: [id number]
[2020-01-18 14:03] LABS: Basophils # (Auto) 0.1 K/mm3 (0.0-0.1); Basophils % (Auto) 0.5 % (0.0-1.8); Eosinophils # (Auto) 0.2 K/mm3 (0.0-0.4); Eosinophils % (Auto) 1.6 % (0.0-4.3); Hematocrit 42.5 % (30.3-42.9); Hemoglobin 14.5 gm/dl (10.1-14.3); Lymphocytes # (Auto) 1.9 K/mm3 (1.2-5.4); Lymphocytes % (Auto) 17.8 % (13.4-35.0); Mean Corpuscular HGB Conc 34 % (30-34); Mean Corpuscular Volume 97 fl (79-97); Monocytes # (Auto) 0.8 K/mm3 (0.0-0.8); Monocytes % (Auto) 7.3 % (0.0-7.3); Platelet Count 214 K/mm3 (140-440); Red Blood Count 4.38 M/mm3 (3.65-5.03); Red Cell Distribution Width 12.6 % (13.2-15.2)
[2020-01-18 14:18] LABS: INR 1.06 (0.87-1.13)
[2020-01-18 14:26] LABS: Alanine Aminotransferase 15 units/L (7-56); Blood Urea Nitrogen 14 mg/dL (7-17); Calcium 8.4 mg/dL (8.4-10.2); Hemolysis Index 8
[2020-01-18 14:27] LABS: BUN/Creatinine Ratio 20
--- NOTE | 2020-01-18 16:33 | XRay Report ---
PELVIS ONE VIEW LEFT FEMUR 4 VIEWS INDICATION / CLINICAL INFORMATION: Pelvic and left lower extremity pain. COMPARISON: CT abdomen and pelvis with contrast from 10/12/2018. FINDINGS: BONES and JOINT(S): No acute fracture or subluxation. Stable moderate lower lumbar spondylosis and mi ld osteoarthritis of the hips. There is mild osteoarthritis of the left knee. SOFT TISSUES: No significant abnormality. ADDITIONAL FINDINGS: None. IMPRESSION: 1. No acute findings. 2. Degenerative changes as above. Signer Name: Kenneth Johnson MD Signed: 01/18/2020 4:28 PM Workstation Name: [id number]
--- NOTE | 2020-01-18 16:39 | Cat Scan Report ---
CT head/brain wo con INDICATION: weakness. TECHNIQUE: Routine CT head. All CT scans at this location are performed using CT dose reduction for A STEW by means of automated exposure control. COMPARISON: 05/26/2016 FINDINGS: Intracranial: Amaya-white matter differentiation is maintained. No intracranial hemorrhage. No extra a xial collection.. No hydrocephalus. No herniation. Sinuses: Paranasal sinuses and mastoid air cells are essentially clear. Orbits: Globes are intact. Calvarium: No acute fracture. IMPRESSION: 1. No acute intracranial abnormality. Signer Name: Diony Hollis MD Signed: 01/18/2020 4:35 PM Workstation Name: [id number]
[2020-01-18 16:40] LABS: Bacteria,Urine 1+ /HPF (Negative); Bilirubin,Urine NEG (Negative); Blood,Urine NEG (Negative); Color,Urine Yellow (Yellow); Mucus,Urine 2+ /HPF
--- NOTE | 2020-01-18 18:25 | Emergency Department Report ---
ED General Adult HPI - General Chief complaint: Weakness Stated complaint: WEAKNESS,NUMBNESS IN LIMBS Time Seen by Provider: 01/18/20 12:21 Source: EMS Mode of arrival: Ambulatory Limitations: No Limitations - History of Present Illness Initial comments: The patient presents to the emergency department via private vehicle for weakness. Initially patient and her complain of her feeling weak upon awakening this morning so they went to see a doctor at the clinic and they told her that she needed COVID testing. Patient denies having a fever, cough, abdominal pain. Patient's ED stay difficult due to having a hard time trying to communicate with the patient. In the beginning the patient was worked up for infectious process and upon trying to get the patient to stand up to use the bedside commode she was not able to move her right leg. At this time I contacted the family nurse line and spoke to the spanish interpreter whose code was [id number] and for near it was determined that the patient woke up with inability to move her right leg. Patient not able to pick the right leg up off of the bed. -: Sudden Location: lower extremity Radiation: non-radiation Severity scale (0 -10): 1 Consistency: constant Improves with: none Worsens with: none Associated Symptoms: denies other symptoms Treatments Prior to Arrival: none - Related Data Home Medications Medication Instructions Recorded Confirmed Last Taken Dexlansoprazole [Dexilant] 60 mg PO QAM 10/21/15 07/18/17 Unknown Glimepiride [Amaryl] 2 mg PO BID 10/21/15 07/18/17 Unknown Glimepiride [Amaryl] 4 mg PO HS 10/21/15 07/18/17 Unknown Lovastatin [Altoprev] 10 mg PO HS 10/21/15 07/18/17 Unknown Metoprolol Tartrate 100 mg PO BID 10/21/15 07/18/17 Unknown diazePAM [Diazepam] 10 mg PO HS 10/21/15 07/18/17 Unknown metFORMIN [Glucophage] 1,000 mg PO BID 10/21/15 07/18/17 Unknown Previous Rx's Medication Instructions Recorded Last Taken Type Hydrocortisone [Anucort-HC SUPPOS] 25 mg [place] Q12HR #30 supp.rect 07/18/17 Unknown Rx Amoxicillin/K Clav Tab [Augmentin 1 each PO BID #20 tablet 02/25/18 Unknown Rx 875MG TAB] HYDROcodone/APAP 5-325 [[place] 1 each PO TID #10 tablet 02/25/18 Unknown Rx 5-325 mg TAB] Naproxen [Naprosyn] 500 mg PO BID #20 tablet 02/25/18 Unknown Rx Allergies Allergy/AdvReac Type Severity Reaction Status Date / Time iodine Allergy Rash Verified 08/27/14 12:53 propofol [From Diprivan] AdvReac Anaphylaxis Verified 05/26/16 18:32 ED Review of Systems ROS: Stated complaint: WEAKNESS,NUMBNESS IN LIMBS Other details as noted in HPI Constitutional: denies: chills, fever Eyes: denies: eye pain, eye discharge, vision change ENT: denies: ear pain, throat pain Respiratory: denies: cough, shortness of breath, wheezing Cardiovascular: denies: chest pain, palpitations Endocrine: no symptoms reported Gastrointestinal: denies: abdominal pain, nausea, diarrhea Genitourinary: denies: urgency, dysuria, discharge Musculoskeletal: denies: back pain, joint swelling, arthralgia Skin: denies: rash, lesions Neurological: weakness. denies: headache, paresthesias Psychiatric: denies: anxiety, depression Hematological/Lymphatic: denies: easy bleeding, easy bruising ED Past Medical Hx - Past Medical History Previous Medical History?: Yes Hx Hypertension: Yes Hx Diabetes: Yes Hx Arthritis: Yes - Surgical History Past Surgical History?: Yes Hx Cholecystectomy: Yes Additional Surgical History: Hysterectomy, Colon Polyps - Social History Smoking Status: Never Smoker Substance Use Type: None - Medications Home Medications: Home Medications Medication Instructions Recorded Confirmed Last Taken Type Dexlansoprazole [Dexilant] 60 mg PO QA 10/21/15 07/18/17 Unknown History Glimepiride [Amaryl] 2 mg PO BID 10/21/15 07/18/17 Unknown History Glimepiride [Amaryl] 4 mg PO HS 10/21/15 07/18/17 Unknown History Lovastatin [Altoprev] 10 mg PO HS 10/21/15 07/18/17 Unknown History Metoprolol Tartrate 100 mg PO BID 10/21/15 07/18/17 Unknown History diazePAM [Diazepam] 10 mg PO HS 10/21/15 07/18/17 Unknown History metFORMIN [Glucophage] 1,000 mg PO BID 10/21/15 07/18/17 Unknown History Hydrocortisone [Anucort-HC SUPPOS] 25 mg [place] Q12HR #30 supp.rect 07/18/17 Unknown Rx Amoxicillin/K Clav Tab [Augmentin 1 each PO BID #20 tablet 02/25/18 Unknown Rx 875MG TAB] HYDROcodone/APAP 5-325 [[place] 1 each PO TID #10 tablet 02/25/18 Unknown Rx 5-325 mg TAB] Naproxen [Naprosyn] 500 mg PO BID #20 tablet 02/25/18 Unknown Rx ED Physical Exam - General Limitations: No Limitations General appearance: alert, in no apparent distress - Head Head exam: Present: atraumatic, normocephalic - Eye Eye exam: Present: normal appearance, PERRL, EOMI - ENT ENT exam: Present: mucous membranes moist - Neck Neck exam: Present: normal inspection - Respiratory Respiratory exam: Present: normal lung sounds bilaterally. Absent: respiratory distress, wheezes, rales - Cardiovascular Cardiovascular Exam: Present: regular rate, normal rhythm. Absent: systolic murmur, diastolic murmur, rubs, gallop - GI/Abdominal GI/Abdominal exam: Present: soft, normal bowel sounds. Absent: distended, tenderness - Extremities Exam Extremities exam: Present: normal inspection, other (Patient has the inability to hold the right leg up against gravity) - Back Exam Back exam: Present: normal inspection - Neurological Exam Neurological exam: Present: alert, oriented X3, CN II-XII intact. Absent: motor sensory deficit - Psychiatric Psychiatric exam: Present: normal affect, normal mood - Skin Skin exam: Present: warm, dry, intact, normal color. Absent: rash ED Course Vital Signs 01/18/20 01/18/20 12:31 13:29 Temperature 98.2 F Pulse Rate 62 Respiratory 20 18 Rate Blood Pressure 200/97 Blood Pressure 200/92 [Right] O2 Sat by Pulse 100 100 Oximetry ED Medical Decision Making - Lab Data Result diagrams: 01/18/20 13:45 01/18/20 13:45 Lab Results 01/18/20 01/18/20 01/18/20 Range/Units 13:45 13:45 13:45 WBC 10.9 (4.5-11.0) K/mm3 RBC 4.38 (3.65-5.03) M/mm3 Hgb 14.5 H (10.1-14.3) gm/dl Hct 42.5 (30.3-42.9) % MCV 97 (79-97) fl MCH 33 H (28-32) pg MCHC 34 (30-34) % RDW 12.6 L (13.2-15.2) % Plt Count 214 (140-440) K/mm3 Lymph % (Auto) 17.8 (13.4-35.0) % [place] % (Auto) 7.3 (0.0-7.3) % Eos % (Auto) 1.6 (0.0-4.3) % Baso % (Auto) 0.5 (0.0-1.8) % Lymph # 1.9 (1.2-5.4) K/mm3 [place] # 0.8 (0.0-0.8) K/mm3 Eos # 0.2 (0.0-0.4) K/mm3 Baso # 0.1 (0.0-0.1) K/mm3 Seg Neutrophils % 72.8 H (40.0-70.0) % Seg Neutrophils # 7.9 H (1.8-7.7) K/mm3 PT 14.0 (12.2-14.9) Sec. INR 1.06 (0.87-1.13) APTT 26.0 (24.2-36.6) Sec. Sodium 138 (137-145) mmol/L Potassium 3.9 (3.6-5.0) mmol/L Chloride 98.4 (98-107) mmol/L Carbon Dioxide 24 (22-30) mmol/L Anion Gap 20 mmol/L BUN 14 (7-17) mg/dL Creatinine 0.7 (0.6-1.2) mg/dL Estimated GFR > 60 ml/min BUN/Creatinine Ratio 20 % Glucose 208 H (65-100) mg/dL Lactic Acid (0.7-2.0) mmol/L Calcium 8.4 (8.4-10.2) mg/dL Total Bilirubin 0.50 (0.1-1.2) mg/dL AST 25 (5-40) units/L ALT 15 (7-56) units/L Alkaline Phosphatase 84 (35-129) units/L Troponin T (0.00-0.029) ng/mL NT-Pro-B Natriuret Pep 362.7 (0-900) pg/mL Total Protein 6.6 (6.3-8.2) g/dL Albumin 4.0 (3.9-5) g/dL Albumin/Globulin Ratio 1.5 % Urine Color (Yellow) Urine Turbidity (Clear) Urine pH (5.0-7.0) Ur Specific [place] (1.003-1.030) Urine Protein (Negative) mg/dL Urine Glucose (UA) (Negative) mg/dL Urine Ketones (Negative) mg/dL Urine Blood (Negative) Urine Nitrite (Negative) Urine Bilirubin (Negative) Urine Urobilinogen (<2.0) mg/dL Ur Leukocyte Esterase (Negative) Urine WBC (Auto) (0.0-6.0) /HPF Urine RBC (Auto) (0.0-6.0) /HPF U Epithel Cells (Auto) (0-13.0) /HPF Urine Bacteria (Auto) (Negative) /HPF Urine Mucus /HPF 01/18/20 01/18/20 01/18/20 Range/Units 13:45 15:30 16:17 WBC (4.5-11.0) K/mm3 RBC (3.65-5.03) M/mm3 Hgb (10.1-14.3) gm/dl Hct (30.3-42.9) % MCV (79-97) fl MCH (28-32) pg MCHC (30-34) % RDW (13.2-15.2) % Plt Count (140-440) K/mm3 Lymph % (Auto) (13.4-35.0) % [place] % (Auto) (0.0-7.3) % Eos % (Auto) (0.0-4.3) % Baso % (Auto) (0.0-1.8) % Lymph # (1.2-5.4) K/mm3 [place] # (0.0-0.8) K/mm3 Eos # (0.0-0.4) K/mm3 Baso # (0.0-0.1) K/mm3 Seg Neutrophils % (40.0-70.0) % Seg Neutrophils # (1.8-7.7) K/mm3 PT (12.2-14.9) Sec. INR (0.87-1.13) APTT (24.2-36.6) Sec. Sodium (137-145) mmol/L Potassium (3.6-5.0) mmol/L Chloride (98-107) mmol/L Carbon Dioxide (22-30) mmol/L Anion Gap mmol/L BUN (7-17) mg/dL Creatinine (0.6-1.2) mg/dL Estimated GFR ml/min BUN/Creatinine Ratio % Glucose (65-100) mg/dL Lactic Acid (0.7-2.0) mmol/L Calcium (8.4-10.2) mg/dL Total Bilirubin (0.1-1.2) mg/dL AST (5-40) units/L ALT (7-56) units/L Alkaline Phosphatase (35-129) units/L Troponin T < 0.010 < 0.010 (0.00-0.029) ng/mL NT-Pro-B Natriuret Pep (0-900) pg/mL Total Protein (6.3-8.2) g/dL Albumin (3.9-5) g/dL Albumin/Globulin Ratio % Urine Color Yellow (Yellow) Urine Turbidity Clear (Clear) Urine pH 5.0 (5.0-7.0) Ur Specific [place] 1.025 (1.003-1.030) Urine Protein 30 mg/dl (Negative) mg/dL Urine Glucose (UA) Neg (Negative) mg/dL Urine Ketones 20 (Negative) mg/dL Urine Blood Neg (Negative) Urine Nitrite Neg (Negative) Urine Bilirubin Neg (Negative) Urine Urobilinogen 4.0 (<2.0) mg/dL Ur Leukocyte Esterase Tr (Negative) Urine WBC (Auto) 1.0 (0.0-6.0) /HPF Urine RBC (Auto) 1.0 (0.0-6.0) /HPF U Epithel Cells (Auto) < 1.0 (0-13.0) /HPF Urine Bacteria (Auto) 1+ (Negative) /HPF Urine Mucus 2+ /HPF 01/18/20 Range/Units 16:38 WBC (4.5-11.0) K/mm3 RBC (3.65-5.03) M/mm3 Hgb (10.1-14.3) gm/dl Hct (30.3-42.9) % MCV (79-97) fl MCH (28-32) pg MCHC (30-34) % RDW (13.2-15.2) % Plt Count (140-440) K/mm3 Lymph % (Auto) (13.4-35.0) % [place] % (Auto) (0.0-7.3) % Eos % (Auto) (0.0-4.3) % Baso % (Auto) (0.0-1.8) % Lymph # (1.2-5.4) K/mm3 [place] # (0.0-0.8) K/mm3 Eos # (0.0-0.4) K/mm3 Baso # (0.0-0.1) K/mm3 Seg Neutrophils % (40.0-70.0) % Seg Neutrophils # (1.8-7.7) K/mm3 PT (12.2-14.9) Sec. INR (0.87-1.13) APTT (24.2-36.6) Sec. Sodium (137-145) mmol/L Potassium (3.6-5.0) mmol/L Chloride (98-107) mmol/L Carbon Dioxide (22-30) mmol/L Anion Gap mmol/L BUN (7-17) mg/dL Creatinine (0.6-1.2) mg/dL Estimated GFR ml/min BUN/Creatinine Ratio % Glucose (65-100) mg/dL Lactic Acid 1.30 (0.7-2.0) mmol/L Calcium (8.4-10.2) mg/dL Total Bilirubin (0.1-1.2) mg/dL AST (5-40) units/L ALT (7-56) units/L Alkaline Phosphatase (35-129) units/L Troponin T (0.00-0.029) ng/mL NT-Pro-B Natriuret Pep (0-900) pg/mL Total Protein (6.3-8.2) g/dL Albumin (3.9-5) g/dL Albumin/Globulin Ratio % Urine Color (Yellow) Urine Turbidity (Clear) Urine pH (5.0-7.0) Ur Specific [place] (1.003-1.030) Urine Protein (Negative) mg/dL Urine Glucose (UA) (Negative) mg/dL Urine Ketones (Negative) mg/dL Urine Blood (Negative) Urine Nitrite (Negative) Urine Bilirubin (Negative) Urine Urobilinogen (<2.0) mg/dL Ur Leukocyte Esterase (Negative) Urine WBC (Auto) (0.0-6.0) /HPF Urine RBC (Auto) (0.0-6.0) /HPF U Epithel Cells (Auto) (0-13.0) /HPF Urine Bacteria (Auto) (Negative) /HPF Urine Mucus /HPF - Radiology Data Radiology results: report reviewed - Medical Decision Making Discussed results with patient and plan of care via the american sign language interpreter Critical Care Time: Yes Critical care attestation.: If time is entered above; I have spent that time in minutes in the direct care of this critically ill patient, excluding procedure time. ED Disposition Clinical Impression: Right leg weakness Disposition: OP ADMIT IP TO THIS HOSP Is pt being admited?: Yes Does the pt Need Aspirin: Yes Condition: Fair Referrals: PRIMARY CARE, [Primary Care Provider] - 3-5 Days - Assessment Assessment Interval: Baseline - Level of Consciousness 1a. Level of Consciousness: alert/keenly responsive - LOC Questions 1b. LOC Questions: answers both correctly - LOC Command 1c. LOC Commands: performs tasks correctly - Best Gaze 2. Best Gaze: normal - Visual 3. Visual: no visual loss - Facial Palsy 4. Facial Palsy: normal symmetrical movement - Motor Arm 5a. Motor Arm Left: no drift 5b. Motor Arm Right: no drift - Motor Leg 6a. Motor Leg Left: no drift 6b. Motor Leg Right: no gravity effort - Limb Ataxia 7. Limb Ataxia: absent - Sensory 8. Sensory: normal - Best Language 9. Best Language: no aphasia - Dysarthria 10. Dysarthria: normal - Extinction and Inattention 11. Extinction/Inattention: no abnormality - Scoring Total Score: 3 Stroke Severity: Minor Stroke
[2020-01-18] MEDS ORDERED: ASPIRIN 81 MG TAB CHEW PO ONE (18:32)
[2020-01-18] MEDS ORDERED: ONDANSETRON 4 MG/2 ML INJ IV PRN (18:37)
[2020-01-18] MEDS ORDERED: METOCLOPRAMIDE 10 MG TAB PO PRN (18:37)
[2020-01-18] MEDS ORDERED: ACETAMINOPHEN 325 MG TAB PO PRN (18:37)
[2020-01-18] MEDS ORDERED: PROMETHAZINE 25 MG RECT SUPP PR PRN (18:37)
[2020-01-18] MEDS ORDERED: MAGNESIUM HYDROXIDE (MOM) ORAL LIQD UDC PO PRN (18:37)
--- NOTE | 2020-01-18 18:39 | History and Physical Report ---
History of Present Illness Chief complaint: I feel weak History of present illness: 74 YO Female with HTN,HLD, DM, OA presents to the emergency department for evaluation. Patient is non-Amharic speaking and unable to provide history. Patient history taken via parking station attendant via merchandising director. As per interpreterthe patient reports that she was in her usual state of health at bedtime around 2200 hrs. Patient awoke from sleep this morning and was found to have right leg weakness. Patient was unable to move her leg and unable to ambulate due to loss of sensation. EMS was notified and upon arrival the patient was found to be in distress with a neurologic deficit. A code stroke was called and the patient was transported to [facility] for further care and evaluation of the aforementioned symptoms. Patient seen and evaluated in the emergency department. Lab and imaging studies reviewed. Patient found to have clinical symptoms consistent with CVA. Patient deemed outside the therapeutic window for TPA. Patient placed in observation status and admitted to medical floor and initiated on stroke protocol. Prior admission on 07/18/2017 reviewed. All medication listed at time of admission has been reconciled. Advanced care planning conducted in ED. Past History Past Medical History: arthritis, diabetes, hypertension, hyperlipidemia Past Surgical History: cholecystectomy, hysterectomy Social history: , lives with family. denies: smoking, alcohol abuse Family history: diabetes, hypertension Medications and Allergies Allergies Allergy/AdvReac Type Severity Reaction Status Date / Time iodine Allergy Rash Verified 08/27/14 12:53 propofol [From Diprivan] AdvReac Anaphylaxis Verified 05/26/16 18:32 Home Medications Medication Instructions Recorded Confirmed Last Taken Type Dexlansoprazole [Dexilant] 60 mg PO QAM 10/21/15 07/18/17 Unknown History Glimepiride [Amaryl] 2 mg PO BID 10/21/15 07/18/17 Unknown History Glimepiride [Amaryl] 4 mg PO HS 10/21/15 07/18/17 Unknown History Lovastatin [Altoprev] 10 mg PO HS 10/21/15 07/18/17 Unknown History Metoprolol Tartrate 100 mg PO BID 10/21/15 07/18/17 Unknown History diazePAM [Diazepam] 10 mg PO HS 10/21/15 07/18/17 Unknown History metFORMIN [Glucophage] 1,000 mg PO BID 10/21/15 07/18/17 Unknown History Hydrocortisone [Anucort-HC SUPPOS] 25 mg [place] Q12HR #30 supp.rect 07/18/17 Unknown Rx Amoxicillin/K Clav Tab [Augmentin 1 each PO BID #20 tablet 02/25/18 Unknown Rx 875MG TAB] HYDROcodone/APAP 5-325 [[place] 1 each PO TID #10 tablet 02/25/18 Unknown Rx 5-325 mg TAB] Naproxen [Naprosyn] 500 mg PO BID #20 tablet 02/25/18 Unknown Rx Review of Systems Constitutional: no weight loss, no weight gain, no fever, no chills Ears, nose, mouth and throat: no ear pain, no ear discharge, no decreased hearing, no nose pain, no nasal congestion Breasts: no change in shape, no swelling, no mass Cardiovascular: no chest pain, no orthopnea, no palpitations, no rapid/irregular heart beat, no edema, no syncope, no lightheadedness Respiratory: no cough, no cough with sputum, no shortness of breath Gastrointestinal: no abdominal pain, no nausea, no diarrhea, no constipation, no change in bowel habits, no hematemesis Genitourinary Female: no pelvic pain, no flank pain, no menorrhagia, no stress incontinence Rectal: no pain, no incontinence, no bleeding Musculoskeletal: no shooting arm pain, no arm numbness/tingling, no low back pain, no shooting leg pain, no leg numbness/tingling Integumentary: no rash, no pruritis, no sores, no wounds, no jaundice, no boils Neurological: weakness, ataxia, lack of coordination, no head injury, no paralysis, no migraines, no convulsions, no change in speech Psychiatric: no anxiety, no change in sleep habits, no sleep disturbances, no change in appetite Endocrine: no cold intolerance, no heat intolerance, no polydipsia, no excessive sweating Hematologic/Lymphatic: no easy bruising, no easy bleeding Allergic/Immunologic: no allergic rhinitis, no wheezing Exam - Constitutional Vitals: Temp Pulse Resp BP Pulse Ox 98.2 F 64 18 200/92 100 01/18/20 12:31 01/18/20 12:31 01/18/20 13:29 01/18/20 12:31 01/18/20 13:29 General appearance: Present: mild distress - EENT Eyes: Present: PERRL ENT: hearing intact, clear oral mucosa - Neck Neck: Present: supple, normal ROM - Respiratory Respiratory effort: normal Respiratory: bilateral: CTA - Cardiovascular Heart Sounds: Present: S1 & S2. Absent: rub, click - Extremities Extremities: pulses symmetrical, No edema Peripheral Pulses: within normal limits - Abdominal General gastrointestinal: Present: soft, non-tender, non-distended, normal bowel sounds Female genitourinary: Present: normal - Integumentary Integumentary: Present: clear, warm, dry - Musculoskeletal Musculoskeletal: right sided weakness - Psychiatric Psychiatric: appropriate mood/affect, intact judgment & insight - Neurologic Neurologic: CNII-XII intact, focal deficits, no moves all extremities, no gait normal HEART Score - HEART Score Troponin: Troponin T < 0.010 ng/mL (0.00-0.029) 01/18/20 15:30 Results - Labs CBC & Chem 7: 01/18/20 13:45 01/18/20 13:45 Labs: Abnormal lab results 01/18/20 01/18/20 Range/Units 13:45 13:45 Hgb 14.5 H (10.1-14.3) gm/dl MCH 33 H (28-32) pg RDW 12.6 L (13.2-15.2) % Seg Neutrophils % 72.8 H (40.0-70.0) % Seg Neutrophils # 7.9 H (1.8-7.7) K/mm3 Glucose 208 H (65-100) mg/dL Assessment and Plan - Patient Problems (1) CVA (cerebral vascular accident) Current Visit: Yes Status: Acute Plan to address problem: CVA protocol: CT head, neuro check, seizure precautions, antiplatelet therapy, lipid panel, statin therapy, physical therapy consulted, Occupational Therapy consulted, speech therapy consulted, echocardiogram, carotid Doppler. (2) HTN (hypertension) Current Visit: Yes Status: Acute Qualifiers: Hypertension type: essential hypertension Qualified Code(s): I10 - Essential (primary) hypertension Plan to address problem: Monitor blood pressure every shift, continue medical management. (3) Hyperlipidemia Current Visit: Yes Status: Acute Qualifiers: Hyperlipidemia type: mixed hyperlipidemia Qualified Code(s): E78.2 - Mixed hyperlipidemia Plan to address problem: Lipid panel, statin therapy. (4) Diabetes Current Visit: Yes Status: Acute Plan to address problem: Sliding scale insulin therapy, Accu-Chek, consistent carbohydrate diet when patient is able to tolerate oral intake, hypoglycemia protocol (5) Osteoarthritis Current Visit: Yes Status: Acute Plan to address problem: Pain control, supportive care. (6) DVT prophylaxis Current Visit: Yes Status: Acute Plan to address problem: SCD to bilateral lower extremities while in bed, prophylactic anticoagulation. (7) Advance care planning Current Visit: Yes Status: Acute Plan to address problem: Disease education conducted, patient is full code, patient prognosis discussed, patient and family acknowledge understanding and agreement with care plan, +30 minutes.
[2020-01-18] MEDS ORDERED: DEXTROSE 50% IN WATER (25GM) 50 ML SYRINGE IV PRN (20:05)
[2020-01-18] MEDS ORDERED: NON-FORMULARY EACH (Diazepam [Diazepam] 10 MG) PO SCH (22:00)
[2020-01-18] MEDS: HYDROCORTISONE 25 MG RECTAL SUPP PR SCH (23:34)
[2020-01-18] MEDS ORDERED: ASPIRIN 325 MG TAB ONE (23:40)
[2020-01-18] MEDS ORDERED: HEPARIN 5,000 UNIT/1 ML VIAL ONE (23:40)
[2020-01-18] MEDS: ASPIRIN 325 MG TAB PO SCH (23:43)
[2020-01-18] MEDS ORDERED: INSULIN LISPRO 100 UNIT/ML VIAL 3 mL SUB-Q ONE (23:44)
[2020-01-18] MEDS: diazePAM 5 MG TAB PO SCH (23:45)
[2020-01-18] MEDS: HEPARIN 5,000 UNIT/1 ML VIAL SUB-Q SCH (23:46)
[2020-01-18] MEDS: INSULIN LISPRO 100 UNIT/ML VIAL 3 mL SUB-Q SCH (23:48)
[2020-01-19] MEDS: METOPROLOL TARTRATE 100 MG TAB PO SCH ×3 (00:35→21:42)
[2020-01-19 06:58] LABS: Chol/HDL Ratio 4.45 %
[2020-01-19] MEDS: INSULIN LISPRO 100 UNIT/ML VIAL 3 mL SUB-Q SCH ×4 (09:33→21:48)
[2020-01-19] MEDS: PANTOPRAZOLE 40 MG TAB PO SCH (09:35)
[2020-01-19] MEDS: ASPIRIN 325 MG TAB PO SCH (09:35)
[2020-01-19] MEDS: hydroCHLOROthiazide 25 MG TAB PO SCH (09:35)
[2020-01-19] MEDS: HEPARIN 5,000 UNIT/1 ML VIAL SUB-Q SCH ×2 (09:36→21:44)
[2020-01-19] MEDS: HYDROCORTISONE 25 MG RECTAL SUPP PR SCH ×4 (09:36→21:48)
[2020-01-19] MEDS ORDERED: ASPIRIN 325 MG TAB PO SCH (10:00)
[2020-01-19] MEDS ORDERED: DEXLANSOPRAZOLE 60 MG PO SCH (10:00)
--- NOTE | 2020-01-19 12:13 | Progress Note ---
<RAMIN DAILEY - Last Filed: 01/19/20 17:14> Assessment and Plan Assessment and Plan - Patient Problems (1) CVA (cerebral vascular accident) Current Visit: Yes Status: Acute Plan to address problem: CVA protocol: CT head, neuro check, seizure precautions, antiplatelet therapy, lipid panel, statin therapy, physical therapy consulted, Occupational Therapy consulted, speech therapy consulted ECHO and carotid Doppler-f/u with result (2) HTN (hypertension) Current Visit: Yes Status: Acute Qualifiers: Hypertension type: essential hypertension Qualified Code(s): I10 - Essential (primary) hypertension Plan to address problem: Monitor blood pressure closely resume home bp med add amlodipine-will adjust bp med if needed Avoid low bp to prevent hypoperfusion of the brain (3) Hyperlipidemia Current Visit: Yes Status: Acute Qualifiers: Hyperlipidemia type: mixed hyperlipidemia Qualified Code(s): E78.2 - Mixed hyperlipidemia Plan to address problem: Lipid panel, statin therapy. (4) Diabetes Current Visit: Yes Status: Acute Plan to address problem: Monitor blood sugar with SSI Discussed low carbohydrate diet (5) Osteoarthritis Current Visit: Yes Status: Acute Plan to address problem: Pain control, supportive care. X-ray femur and pelvis-no acute finding Chest x-ray-no acute finding (6) DVT prophylaxis Current Visit: Yes Status: Acute Plan to address problem: SCD to bilateral lower extremities while in bed, prophylactic anticoagulation. (7) Advance care planning Current Visit: Yes Status: Acute Plan to addr Subjective Date of service: 01/19/20 Principal diagnosis: CVA, right leg weaknes Interval history: Pt seen at bedside - present-pt reports right leg weakness/pain Reviewed lab, mar, v/s and radiology report Objective - Constitutional Vitals: Vital Signs - 12hr 01/19/20 01/19/20 01/19/20 00:21 00:31 00:35 Temperature Pulse Rate 74 Pulse Rate [ Apical] Pulse Rate [ Left Radial] Pulse Rate [ Right Radial] Respiratory Rate Blood Pressure 217/100 158/63 217/100 O2 Sat by Pulse 95 92 Oximetry 01/19/20 01/19/20 01/19/20 00:36 03:33 04:16 Temperature 98.0 F Pulse Rate 74 62 66 Pulse Rate [ Apical] Pulse Rate [ Left Radial] Pulse Rate [ Right Radial] Respiratory 20 Rate Blood Pressure 217/100 233/100 O2 Sat by Pulse 96 Oximetry 01/19/20 01/19/20 01/19/20 04:27 07:29 08:32 Temperature 97.9 F Pulse Rate 63 74 75 Pulse Rate [ Apical] Pulse Rate [ Left Radial] Pulse Rate [ Right Radial] Respiratory 20 Rate Blood Pressure 214/93 163/94 195/92 O2 Sat by Pulse 94 87 Oximetry 01/19/20 01/19/20 01/19/20 09:34 10:00 11:23 Temperature 98.9 F Pulse Rate 89 71 Pulse Rate [ 92 H Apical] Pulse Rate [ 92 H Left Radial] Pulse Rate [ 92 H Right Radial] Respiratory 19 20 Rate Blood Pressure 196/89 178/87 O2 Sat by Pulse 99 94 Oximetry General appearance: Present: no acute distress - EENT Eyes: PERRL, EOM intact ENT: hearing intact, clear oral mucosa Ears: bilateral: normal - Neck Neck: supple, normal ROM - Respiratory Respiratory effort: normal Respiratory: bilateral: CTA - Breasts Breasts: normal - Cardiovascular Heart rate: 71 Rhythm: regular Extremities: pulses intact, No edema, normal color, Full ROM - Gastrointestinal General gastrointestinal: Present: soft, non-tender, non-distended, normal bowel sounds - Genitourinary Female genitourinary: normal - Integumentary Integumentary: clear, warm, dry - Musculoskeletal Musculoskeletal: right sided weakness (right leg weakness) - Neurologic Neurologic: moves all extremities - Psychiatric Psychiatric: appropriate mood/affect, cooperative - Labs CBC & Chem 7: 01/18/20 13:45 01/18/20 13:45 Labs: Abnormal lab results 01/18/20 01/18/20 01/18/20 Range/Units 13:45 13:45 20:31 Hgb 14.5 H (10.1-14.3) gm/dl MCH 33 H (28-32) pg RDW 12.6 L (13.2-15.2) % Seg Neutrophils % 72.8 H (40.0-70.0) % Seg Neutrophils # 7.9 H (1.8-7.7) K/mm3 Glucose 208 H (65-100) mg/dL POC Glucose 216 H (70-105) Triglycerides (2-149) mg/dL HDL Cholesterol (40-59) mg/dL 0901/19/20 01/19/20 Range/Units 23:46 04:34 09:05 Hgb (10.1-14.3) gm/dl MCH (28-32) pg RDW (13.2-15.2) % Seg Neutrophils % (40.0-70.0) % Seg Neutrophils # (1.8-7.7) K/mm3 Glucose (65-100) mg/dL POC Glucose 209 H 241 H (70-105) Triglycerides 169 H (2-149) mg/dL HDL Cholesterol 37 L (40-59) mg/dL HEART Score - HEART Score Troponin: Troponin T < 0.010 ng/mL (0.00-0.029) 01/18/20 15:30 <ENOCH ZIEGLER - Last Filed: 01/20/20 12:16> Assessment and Plan I saw and evaluated the patient. I agree with the findings and the plan of care as documented in the Nurse Practitioner's~note, with the following corrections and additions. Discussed with spouse about concern for cva. MRI ordered Objective - Constitutional Vitals: Vital Signs - 12hr 01/20/20 01/20/20 01/20/20 04:13 06:19 07:43 Temperature 98.5 F 98.8 F Pulse Rate 70 75 Respiratory 20 18 Rate Blood Pressure 185/89 173/76 174/90 O2 Sat by Pulse 92 91 Oximetry 01/20/20 01/20/20 01/20/20 08:32 09:45 12:07 Temperature Pulse Rate 75 77 79 Respiratory Rate Blood Pressure 157/83 161/85 164/82 O2 Sat by Pulse 90 90 Oximetry 01/20/20 12:09 Temperature Pulse Rate 79 Respiratory Rate Blood Pressure 164/82 O2 Sat by Pulse Oximetry - Labs CBC & Chem 7: 01/20/20 04:36 01/20/20 04:36 Labs: Abnormal lab results 01/19/20 01/19/20 01/19/20 Range/Units 11:36 15:56 21:21 Hgb (10.1-14.3) gm/dl MCH (28-32) pg RDW (13.2-15.2) % [place] % (Auto) (0.0-7.3) % [place] # (0.0-0.8) K/mm3 ABG pO2 (80.0-90.0) mm Hg ABG HCO3 (20.0-26.0) mmol/L Sodium (137-145) mmol/L Chloride (98-107) mmol/L BUN (7-17) mg/dL Glucose (65-100) mg/dL POC Glucose 324 H 341 H 345 H (70-105) Hemoglobin A1c (4-6) % 01/20/20 01/20/20 01/20/20 Range/Units 04:36 04:36 04:36 Hgb 14.6 H (10.1-14.3) gm/dl MCH 33 H (28-32) pg RDW 12.9 L (13.2-15.2) % [place] % (Auto) 10.0 H (0.0-7.3) % [place] # 1.1 H (0.0-0.8) K/mm3 ABG pO2 (80.0-90.0) mm Hg ABG HCO3 (20.0-26.0) mmol/L Sodium 136 L (137-145) mmol/L Chloride 96.0 L (98-107) mmol/L BUN 22 H (7-17) mg/dL Glucose 351 H (65-100) mg/dL POC Glucose (70-105) Hemoglobin A1c 8.4 H (4-6) % 01/20/20 01/20/20 01/20/20 Range/Units 08:00 10:15 11:51 Hgb (10.1-14.3) gm/dl MCH (28-32) pg RDW (13.2-15.2) % [place] % (Auto) (0.0-7.3) % [place] # (0.0-0.8) K/mm3 ABG pO2 128.1 H (80.0-90.0) mm Hg ABG HCO3 26.8 H (20.0-26.0) mmol/L Sodium (137-145) mmol/L Chloride (98-107) mmol/L BUN (7-17) mg/dL Glucose (65-100) mg/dL POC Glucose 299 H 214 H (70-105) Hemoglobin A1c (4-6) % HEART Score - HEART Score Troponin: Troponin T < 0.010 ng/mL (0.00-0.029) 01/18/20 15:30
[2020-01-19] MEDS: INSULIN GLARGINE 100 UNITS/ML SUB-Q SCH ×2 (12:56→21:48)
[2020-01-19] MEDS ORDERED: amLODIPine 5 MG TAB PO SCH (15:00)
[2020-01-19] MEDS: diazePAM 5 MG TAB PO SCH (21:43)
[2020-01-20 05:29] LABS: Basophils % (Auto) 0.2 % (0.0-1.8); Eosinophils # (Auto) 0.2 K/mm3 (0.0-0.4); Eosinophils % (Auto) 1.8 % (0.0-4.3); Hematocrit 42.6 % (30.3-42.9); Hemoglobin 14.6 gm/dl (10.1-14.3); Lymphocytes # (Auto) 2.7 K/mm3 (1.2-5.4); Lymphocytes % (Auto) 25.7 % (13.4-35.0); Mean Corpuscular HGB Conc 34 % (30-34); Mean Corpuscular Volume 97 fl (79-97); Monocytes # (Auto) 1.1 K/mm3 (0.0-0.8); Platelet Count 215 K/mm3 (140-440); Red Blood Count 4.41 M/mm3 (3.65-5.03); Red Cell Distribution Width 12.9 % (13.2-15.2)
[2020-01-20 05:45] LABS: BUN/Creatinine Ratio 28; Blood Urea Nitrogen 22 mg/dL (7-17); Calcium 8.9 mg/dL (8.4-10.2); Hemolysis Index 8
[2020-01-20] MEDS: INSULIN LISPRO 100 UNIT/ML VIAL 3 mL SUB-Q SCH ×4 (08:21→21:57)
[2020-01-20] MEDS: INSULIN GLARGINE 100 UNITS/ML SUB-Q SCH ×4 (08:50→21:58)
--- NOTE | 2020-01-20 09:08 | Progress Note ---
<ASHLIERAMIN - Last Filed: 01/20/20 12:54> Assessment and Plan Assessment and Plan - Patient Problems (1) CVA (cerebral vascular accident) Current Visit: Yes Status: Acute Plan to address problem: CVA protocol: 01/18/20-CT head- showed no acute finding 01/20/20-showed Subacute ischemic changes are seen in the left anterior cerebral artery territory neuro check every 2 hrs seizure precautions, antiplatelet therapy with ASA, statin therapy physical therapy consulted, Occupational Therapy consulted, speech therapy consulted ECHO and carotid Doppler-result pending NPO till seen by speech NGT -placement-confirmed by chest x-ray (2) HTN (hypertension) Current Visit: Yes Status: Acute Qualifiers: Hypertension type: essential hypertension Qualified Code(s): I10 - Essential (primary) hypertension Plan to address problem: Monitor blood pressure closely resume home bp med amlodipine-will adjust bp med if needed (3) Hyperlipidemia Current Visit: Yes Status: Acute Qualifiers: Hyperlipidemia type: mixed hyperlipidemia Qualified Code(s): E78.2 - Mixed hyperlipidemia Plan to address problem: continue statin therapy. (4) Diabetes with hyperglycemia Current Visit: Yes Status: Acute Plan to address problem: Monitor blood sugar with SSI Continue lantus Insulin check HGA1C Discussed low carbohydrate diet (5) Osteoarthritis Current Visit: Yes Status: Acute Plan to address problem: Pain control, supportive care. X-ray femur and pelvis-no acute finding Chest x-ray-no acute finding (6) DVT prophylaxis Current Visit: Yes Status: Acute Plan to address problem: SCD to bilateral lower extremities while in bed, prophylactic anticoagulation- heparin. (7) Advance care planning Current Visit: Yes Status: Acute Will d/c pt when placement to SNF confirmed Subjective Principal diagnosis: CVA, right leg weaknes Interval history: Pt seen at bedside -patient status changed-patient not verbal as she was yesterday. present- Patient now has right sided weakness. CT of head done today-showed Subacute i schemic changes are seen in the left anterior cerebral artery territory Pxwpjbser-plkrejkna-zkid f/u with recommendation. Patient responds to questions appropriately. Speech pathologist consulted NG tube placed-due pt difficulty with swallowing Reviewed lab, mar, v/s Reviewed SW note-SNF recommended-referral sent to [facility] re[facility] Will d/c pt when placement confirmed Objective - Constitutional Vitals: Vital Signs - 12hr 01/19/20 01/19/20 01/20/20 22:00 23:00 00:08 Temperature 98.3 F Pulse Rate 90 82 Respiratory 20 18 Rate Blood Pressure 167/90 O2 Sat by Pulse 94 Oximetry 01/20/20 01/20/20 01/20/20 04:13 06:19 07:43 Temperature 98.5 F 98.8 F Pulse Rate 70 75 Respiratory 20 18 Rate Blood Pressure 185/89 173/76 174/90 O2 Sat by Pulse 92 91 Oximetry General appearance: Present: no acute distress, mild distress (difficulty with swallow and speech) - EENT Eyes: PERRL, EOM intact ENT: hearing intact, clear oral mucosa Ears: bilateral: normal - Respiratory Respiratory effort: normal Respiratory: bilateral: CTA - Breasts Breasts: deferred - Cardiovascular Heart rate: 79 - Neurologic Neurologic: focal deficits (right sided weakness-slurred speech. Tele neuro consulted) - Psychiatric Psychiatric: cooperative - Labs CBC & Chem 7: 01/20/20 04:36 01/20/20 04:36 Labs: Abnormal lab results 01/19/20 01/19/20 01/19/20 Range/Units 11:36 15:56 21:21 Hgb (10.1-14.3) gm/dl MCH (28-32) pg RDW (13.2-15.2) % [place] % (Auto) (0.0-7.3) % [place] # (0.0-0.8) K/mm3 Sodium (137-145) mmol/L Chloride (98-107) mmol/L BUN (7-17) mg/dL Glucose (65-100) mg/dL POC Glucose 324 H 341 H 345 H (70-105) 01/20/20 01/20/20 01/20/20 Range/Units 04:36 04:36 08:00 Hgb 14.6 H (10.1-14.3) gm/dl MCH 33 H (28-32) pg RDW 12.9 L (13.2-15.2) % [place] % (Auto) 10.0 H (0.0-7.3) % [place] # 1.1 H (0.0-0.8) K/mm3 Sodium 136 L (137-145) mmol/L Chloride 96.0 L (98-107) mmol/L BUN 22 H (7-17) mg/dL Glucose 351 H (65-100) mg/dL POC Glucose 299 H (70-105) HEART Score - HEART Score Troponin: Troponin T < 0.010 ng/mL (0.00-0.029) 01/18/20 15:30 <ENOCH ZIEGLER - Last Filed: 01/21/20 07:15> Assessment and Plan I saw and evaluated the patient. I agree with the findings and the plan of care as documented in the Nurse Practitioner's~note, with the following corrections and additions. Objective - Constitutional Vitals: Vital Signs - 12hr 01/20/20 01/21/20 01/21/20 19:39 01:16 04:05 Temperature 98.5 F 98.7 F Pulse Rate 79 85 79 Respiratory 18 20 Rate Blood Pressure 152/68 185/93 O2 Sat by Pulse 93 92 Oximetry 01/21/20 06:23 Temperature Pulse Rate 79 Respiratory Rate Blood Pressure 185/93 O2 Sat by Pulse Oximetry - Labs CBC & Chem 7: 01/20/20 04:36 01/20/20 04:36 Labs: Abnormal lab results 01/20/20 01/20/20 01/20/20 Range/Units 04:36 08:00 10:15 ABG pO2 128.1 H (80.0-90.0) mm Hg ABG HCO3 26.8 H (20.0-26.0) mmol/L POC Glucose 299 H (70-105) Hemoglobin A1c 8.4 H (4-6) % 01/20/20 01/20/20 01/20/20 Range/Units 11:51 15:55 21:46 ABG pO2 (80.0-90.0) mm Hg ABG HCO3 (20.0-26.0) mmol/L POC Glucose 214 H 257 H 387 H (70-105) Hemoglobin A1c (4-6) % HEART Score - HEART Score Troponin: Troponin T < 0.010 ng/mL (0.00-0.029) 01/18/20 15:30
[2020-01-20 10:30] LABS: ABG Base Excess 2.1 mmol/L (-2.0-3.0); ABG HCO3 26.8 mmol/L (20.0-26.0); ABG Methemoglobin 0.5 % (0.0-1.5); ABG Oxygen Saturation 98.5 % (95.0-99.0); ABG PH 7.423 pH Units (7.350-7.450); ABG PO2 128.1 mm Hg (80.0-90.0)
--- NOTE | 2020-01-20 10:41 | Cat Scan Report ---
NONENHANCED CT SCAN OF THE HEAD: INDICATION / CLINICAL INFORMATION: 74 years Female; AMS. TECHNIQUE: Routine CT head without contrast. All CT scans at this location are performed using CT dos e reduction for ALARA by means of automated exposure control. COMPARISON: CT scan of the head from 01/18/2020 FINDINGS: BRAIN / INTRACRANIAL CONTENTS: Subacute ischemic changes are seen in the left anterior cerebral arter y territory. These are more prominent than in the CT scan from 2 days ago. No hemorrhagic changes are seen. There is mass effect over the roof of the left lateral ventricle. Tiny calcific density seen at the level of foramen of Zi. Lateral ventricles are not obstructed. This could be from choroid plexus calcification or could be nonobstructive colloid cyst. CRANIOCERVICAL JUNCTION: No significant abnormality. ORBITS: No significant abnormality of visualized orbits. SINUSES / MASTOIDS: No significant abnormality of the visualized paranasal sinuses or mastoid air anna ls. ADDITIONAL FINDINGS: None. IMPRESSION: Subacute infarction in the left anterior cerebral artery territory; no hemorrhagic changes; persiste nt mass effect over the roof of the left lateral ventricle Signer Name: Lynne Boswell MD Signed: 01/20/2020 10:37 AM Workstation Name: [id number]
[2020-01-20] MEDS: HEPARIN 5,000 UNIT/1 ML VIAL SUB-Q SCH ×2 (11:18→21:56)
[2020-01-20] MEDS: HYDROCORTISONE 25 MG RECTAL SUPP PR SCH ×2 (11:19→21:57)
[2020-01-20] MEDS: METOPROLOL TARTRATE 100 MG TAB PO SCH (11:26)
[2020-01-20] MEDS: ASPIRIN 325 MG TAB PO SCH (11:26)
[2020-01-20] MEDS: hydroCHLOROthiazide 25 MG TAB PO SCH (11:26)
[2020-01-20] MEDS: PANTOPRAZOLE 40 MG TAB PO SCH (11:26)
[2020-01-20] MEDS: amLODIPine 10 MG TAB PO SCH (12:07)
[2020-01-20] MEDS: METOPROLOL TARTRATE 5 MG/5 ML INJ IV SCH ×2 (12:09→17:45)
--- NOTE | 2020-01-20 12:13 | XRay Report ---
SUPINE ABDOMEN INDICATION: Dobhoff placement. COMPARISON: No relevant prior imaging study available. FINDINGS: Feeding tube tip projects at the gastric pylorus/duodenal bulb. IMPRESSION: 1. Feeding tube as above. 2. There are a few mildly dilated loops of small bowel. Gas is noted throughout the colon. Signer Name: Hipolito Matson MD Signed: 01/20/2020 12:09 PM Workstation Name: [id number]
[2020-01-20] MEDS ORDERED: D5W/0.9% NACL 1,000 ML IV SCH (15:00)
--- NOTE | 2020-01-20 15:35 | Magnetic Resonance Report ---
NONENHANCED MR SCAN OF THE BRAIN: INDICATION / CLINICAL INFORMATION: cva. TECHNIQUE: Multiplanar, multisequence MR images of the brain obtained. COMPARISON: CT scan of the head from 01/18/2020 and 01/20/2020 FINDINGS: BRAIN / INTRACRANIAL CONTENTS: Subacute ischemia in the left anterior cerebral artery territory; no h emorrhagic changes; this infarction is only few days old; mild mass effect over the roof of the left lateral ventricle Brainstem is normal in the right middle cerebellar peduncle, chronic appearing ischemic lesions; cer ebellar hemispheres normal Deep hemispheric white matter lesions ([place] 1) CRANIOCERVICAL JUNCTION: No significant abnormality. VASCULAR FLOW-VOIDS: No significant abnormality. ORBITS: No significant abnormality of visualized orbits. SINUSES / MASTOIDS: No significant abnormality of visualized sinuses and mastoid air cells. ADDITIONAL FINDINGS: None. IMPRESSION: 1. Left anterior cerebral artery territory nonhemorrhagic subacute infarction Signer Name: Lynne Boswell MD Signed: 01/20/2020 3:30 PM Workstation Name: [id number]
--- NOTE | 2020-01-20 17:24 | Consultation ---
History of Present Illness History of present illness: [facility] Tele[facility]urology Consult Services Stat Consult Date of Service: 01/20/2020 12:22:16 Impression: Rule Out Acute Ischemic Stroke Comments/Sign-Out: Patient presented with legs weakness, she is today not talking as much better, right leg weakness and also right hand weakness and left arm. She is following commands. She needs MRI brain, MRA head and neck, ASA, no need for permissive HTN as been more than 24. Echo, Tele, LDL, A1C, statin. Metrics: [facility] Notification Time: 01/20/2020 12:22:16 Stamp Time: 01/20/2020 12:22:16 Callback Response Time: 01/20/2020 12:23:12 Video Start Time: 01/20/2020 14:05:25 Video End Time: 01/20/2020 14:13:14 Our recommendations are outlined below. Recommendations: Antiplatelet Therapy Imaging Studies: MRI Head MRA Head and Neck Without Contrast When Available - Stroke Protocol Therapies: Physical Therapy, Occupational Therapy, Speech Therapy Assessment When Applicable Disposition: Neurology Follow Up Recommended Chief Complaint: not talking History of Present Illness: Patient is a 74 year old Female. Patient is a 74 year old woman who presented with right leg weakness since , CT was done and showed no acute findings, today noted she is not talking but still following commands. said Tuesday he took her to her doctor office, when they came back home she was not able to stand up so he called 911. Past Medical History: Examination: 1A: Level of Consciousness - Alert; keenly responsive + 0 1B: Ask Month and Age - Aphasic + 2 1C: Blink Eyes & Squeeze Hands - Performs 1 Task + 1 2: Test Horizontal Extraocular Movements - Normal + 0 3: Test Visual [place] - No Visual Loss + 0 4: Test Facial Palsy (Use Grimace if Obtunded) - Minor paralysis (flat nasolabial fold, smile asymmetry) + 1 5A: Test Left Arm Motor Drift - No Drift for 10 Seconds + 0 5B: Test Right Arm Motor Drift - No Effort Against Canones + 3 6A: Test Left Leg Motor Drift - No Drift for 5 Seconds + 0 6B: Test Right Leg Motor Drift - No Effort Against Canones + 3 7: Test Limb Ataxia (FNF/Heel-[place]) - No Ataxia + 0 8: Test Sensation - Normal; No sensory loss + 0 9: Test Language/Aphasia - Mute/Global Aphasia: No Usable Speech/Auditory Comprehension + 3 10: Test Dysarthria - Mute/Anarthric + 2 11: Test Extinction/Inattention - No abnormality + 0 NIHSS Score: 15 Due to the immediate potential for life-threatening deterioration due to underlying acute neurologic illness, I spent 35 minutes providing critical care. This time includes time for face to face visit via telemedicine, review of medical records, imaging studies and discussion of findings with providers, the patient and/or family. Dr Bruce Somers [facility] Case [id number] Past History Past Medical History: arthritis, diabetes, hypertension, hyperlipidemia Past Surgical History: cholecystectomy, hysterectomy Social history: , lives with family. denies: smoking, alcohol abuse Family history: diabetes, hypertension Medications and Allergies Allergies Allergy/AdvReac Type Severity Reaction Status Date / Time iodine Allergy Rash Verified 08/27/14 12:53 propofol [From Diprivan] AdvReac Anaphylaxis Verified 05/26/16 18:32 Home Medications Medication Instructions Recorded Confirmed Last Taken Type Dexlansoprazole [Dexilant] 60 mg PO [facility] 10/21/15 01/19/20 Unknown History Glimepiride [Amaryl] 2 mg PO BID 10/21/15 01/19/20 Unknown History Glimepiride [Amaryl] 4 mg PO HS 10/21/15 01/19/20 Unknown History Lovastatin [Altoprev] 10 mg PO HS 10/21/15 01/19/20 Unknown History Metoprolol Tartrate 100 mg PO BID 10/21/15 01/19/20 Unknown History diazePAM [Diazepam] 10 mg PO HS 10/21/15 01/19/20 Unknown History metFORMIN [Glucophage] 1,000 mg PO BID 10/21/15 01/19/20 Unknown History Hydrocortisone [Anucort-HC SUPPOS] 25 mg [place] Q12HR #30 supp.rect 07/18/17 01/19/20 Unknown Rx Amoxicillin/K Clav Tab [Augmentin 1 each PO BID #20 tablet 02/25/18 01/19/20 Unknown Rx 875MG TAB] HYDROcodone/APAP 5-325 [[place] 1 each PO TID #10 tablet 02/25/18 01/19/20 Unknown Rx 5-325 mg TAB] Naproxen [Naprosyn] 500 mg PO BID #20 tablet 02/25/18 01/19/20 Unknown Rx Lantus VIAL 35 units IJ BID 01/19/20 01/19/20 01/18/20 History Active Meds: Active Medications Acetaminophen (Tylenol) 650 mg PO Q4H PRN PRN Reason: Pain, Mild (1-3) Amlodipine Besylate (Amlodipine) 10 mg PO DAILY [facility] Last Admin: 01/20/20 12:07 Dose: Not Given Documented by: Aspirin (Aspirin) 325 mg PO QDAY [facility] Last Admin: 01/20/20 11:26 Dose: Not Given Documented by: Atorvastatin Calcium (Lipitor) 40 mg PO QHS [facility] Last Admin: 01/19/20 21:42 Dose: 40 mg Documented by: Bisacodyl (Dulcolax) 10 mg [place] QDAY PRN PRN Reason: Constipation Dextrose (D50w (25gm) Syringe) 50 ml IV Q30MIN PRN; Protocol PRN Reason: Hypoglycemia Diazepam (Valium) 10 mg PO QHS [facility] Last Admin: 01/19/20 21:43 Dose: 10 mg Documented by: Heparin Sodium (Porcine) (Heparin) 5,000 unit SUB-Q Q12HR [facility] Last Admin: 01/20/20 11:18 Dose: 5,000 unit Documented by: Hydrochlorothiazide (Hctz) 25 mg PO QDAY [facility] Last Admin: 01/20/20 11:26 Dose: Not Given Documented by: Hydrocortisone Acetate (Anucort-Hc) 25 mg [place] Q12HR [facility] Last Admin: 01/20/20 11:19 Dose: 25 mg Documented by: Dextrose/Sodium Chloride (D5ns) 1,000 mls @ 50 mls/hr IV DIRECT [facility] Last Admin: 01/20/20 16:05 Dose: 50 mls/hr Documented by: Insulin Glargine (Lantus) 35 units SUB-Q BID [facility] Last Admin: 01/20/20 11:22 Dose: 35 units Documented by: Insulin Human Lispro (Humalog) 0 unit SUB-Q ACHS [facility]; Protocol Last Admin: 01/20/20 16:27 Dose: 4 unit Documented by: Labetalol HCl (Labetalol) 10 mg IV Q4H PRN PRN Reason: HYPERTENSION Last Admin: 01/20/20 04:36 Dose: 10 mg Documented by: Magnesium Hydroxide (Milk Of Magnesia) 30 ml PO Q4H PRN PRN Reason: Constipation Metoclopramide HCl (Reglan) 10 mg PO Q6H PRN PRN Reason: Nausea And Vomiting Metoprolol Tartrate (Metoprolol) 2.5 mg IV Q6HR [facility] Last Admin: 01/20/20 12:09 Dose: 2.5 mg Documented by: Ondansetron HCl (Zofran) 4 mg IV Q8H PRN PRN Reason: Nausea And Vomiting Pantoprazole Sodium (Protonix) 40 mg PO DAILY [facility] Last Admin: 01/20/20 11:26 Dose: Not Given Documented by: Promethazine HCl (Phenergan) 25 mg [place] Q6H PRN PRN Reason: Nausea And Vomiting Sodium Chloride (Sodium Chloride Flush Syringe 10 Ml) 10 ml IV PRN PRN PRN Reason: LINE FLUSH Physical Examination - Vital Signs Vital Signs: Vital Signs Pulse Resp Pulse Ox 58 L 15 95 01/18/20 12:11 01/18/20 12:11 01/18/20 12:11 Results - Laboratory Findings CBC and BMP: 01/20/20 04:36 01/20/20 04:36 Abnormal Lab Findings: Abnormal Labs 01/18/20 01/18/20 01/18/20 13:45 13:45 20:31 Hgb 14.5 H MCH 33 H RDW 12.6 L [place] % (Auto) [place] # Seg Neutrophils % 72.8 H Seg Neutrophils # 7.9 H ABG pO2 ABG HCO3 Sodium Chloride BUN Glucose 208 H POC Glucose 216 H Hemoglobin A1c Triglycerides HDL Cholesterol 01/18/20 01/19/20 01/19/20 23:46 04:34 09:05 Hgb MCH RDW [place] % (Auto) [place] # Seg Neutrophils % Seg Neutrophils # ABG pO2 ABG HCO3 Sodium Chloride BUN Glucose POC Glucose 209 H 241 H Hemoglobin A1c Triglycerides 169 H HDL Cholesterol 37 L 01/19/20 01/19/20 01/19/20 11:36 15:56 21:21 Hgb MCH RDW [place] % (Auto) [place] # Seg Neutrophils % Seg Neutrophils # ABG pO2 ABG HCO3 Sodium Chloride BUN Glucose POC Glucose 324 H 341 H 345 H Hemoglobin A1c Triglycerides HDL Cholesterol 01/20/20 01/20/20 01/20/20 04:36 04:36 04:36 Hgb 14.6 H MCH 33 H RDW 12.9 L [place] % (Auto) 10.0 H [place] # 1.1 H Seg Neutrophils % Seg Neutrophils # ABG pO2 ABG HCO3 Sodium 136 L Chloride 96.0 L BUN 22 H Glucose 351 H POC Glucose Hemoglobin A1c 8.4 H Triglycerides HDL Cholesterol 01/20/20 01/20/20 01/20/20 08:00 10:15 11:51 Hgb MCH RDW [place] % (Auto) [place] # Seg Neutrophils % Seg Neutrophils # ABG pO2 128.1 H ABG HCO3 26.8 H Sodium Chloride BUN Glucose POC Glucose 299 H 214 H Hemoglobin A1c Triglycerides HDL Cholesterol
[2020-01-20] MEDS: diazePAM 5 MG TAB PO SCH (21:56)
[2020-01-21] MEDS: METOPROLOL TARTRATE 5 MG/5 ML INJ IV SCH ×4 (01:16→17:11)
[2020-01-21] MEDS: INSULIN GLARGINE 100 UNITS/ML SUB-Q SCH ×2 (09:00→21:50)
[2020-01-21] MEDS: INSULIN LISPRO 100 UNIT/ML VIAL 3 mL SUB-Q SCH ×4 (11:00→21:50)
--- NOTE | 2020-01-21 11:22 | Progress Note ---
Assessment and Plan Assessment and plan: 74 YO Female with HTN,HLD, DM, OA presents to the emergency department for evaluation. Patient is non-[place] speaking and unable to provide history. Patient history taken via biscuit maker via loom fixer helper. As per interpreterthe patient reports that she was in her usual state of health at bedtime around 2200 hrs. Patient awoke from sleep this morning and was found to have right leg weakness. Patient was unable to move her leg and unable to ambulate due to loss of sensation. EMS was notified and upon arrival the patient was found to be in distress with a neurologic deficit. A code stroke was called and the patient was transported to [facility] for further care and evaluation of the aforementioned symptoms. Patient seen and evaluated in the emergency department. Lab and imaging studies reviewed. Patient found to have clinical symptoms consistent with CVA. Patient deemed outside the therapeutic window for TPA. Patient placed in observation status and admitted to medical floor and initiated on stroke protocol. Prior admission on 07/18/2017 reviewed. All medication listed at time of admission has been reconciled. Advanced care planning conducted in ED. 01/20: Patient two nights ago had sudden change from previously noted right sided weakness and had expressive aphasia, Repeat imaging studies confirmed CVA, Patient is beginning to show some improvement, will continue to improve BP. Family notified at bedside. Continue Rehab therapy and Monitor BP. CT of head done today-showed Subacute ischemic changes are seen in the left anterior cerebral artery territory (1) CVA (cerebral vascular accident) Current Visit: Yes Status: Acute Plan to address problem: CVA protocol: 01/18/20-CT head- showed no acute finding 01/20/20-showed Subacute ischemic changes are seen in the left anterior cerebral artery territory neuro check every 2 hrs seizure precautions, antiplatelet therapy with ASA, statin therapy physical therapy consulted, Occupational Therapy consulted, speech therapy consulted ECHO and carotid Doppler-result pending NPO till seen by speech NGT -placement-confirmed by chest x-ray (2) HTN (hypertension) Current Visit: Yes Status: Acute Qualifiers: Hypertension type: essential hypertension Qualified Code(s): I10 - Essential (primary) hypertension Plan to address problem: Monitor blood pressure closely resume home bp med amlodipine-will adjust bp med if needed (3) Hyperlipidemia Current Visit: Yes Status: Acute Qualifiers: Hyperlipidemia type: mixed hyperlipidemia Qualified Code(s): E78.2 - Mixed hyperlipidemia Plan to address problem: continue statin therapy. (4) Diabetes with hyperglycemia Current Visit: Yes Status: Acute Plan to address problem: Monitor blood sugar with SSI Continue lantus Insulin check HGA1C Discussed low carbohydrate diet (5) Osteoarthritis Current Visit: Yes Status: Acute Plan to address problem: Pain control, supportive care. X-ray femur and pelvis-no acute finding Chest x-ray-no acute finding (6) DVT prophylaxis Current Visit: Yes Status: Acute Plan to address problem: SCD to bilateral lower extremities while in bed, prophylactic anticoagulation- heparin. (7) Advance care planning Current Visit: Yes Status: Acute Will d/c pt when placement to SNF confirmed History Interval history: Patient seen and examined today noted some improvement not able to speak 1 or 2 words but still lethargic. Blood pressure still uncontrolled Hospitalist Physical - Physical exam Narrative exam: VITAL SIGNS: Reviewed. GENERAL: The patient appears normally developed lethargic, still with word finding issues but improving, Vital signs as documented. HEAD: No signs of head trauma. EYES: Pupils are equal. Extraocular motions intact. EARS: Hearing grossly intact. MOUTH: Oropharynx is normal. NECK: No adenopathy, no JVD. CHEST: Chest with clear breath sounds bilaterally. No wheezes, rales, or rhonchi. CARDIAC: Regular rate and rhythm. S1 and S2, without murmurs, gallops, or rubs. VASCULAR: No Edema. Peripheral pulses normal and equal in all extremities. ABDOMEN: Soft, non tender and non distended. No rebound or guarding, and no masses palpated. Bowel Sounds normal. MUSCULOSKELETAL: Good range of motion of all major joints. Extremities without clubbing, cyanosis or edema. NEUROLOGIC EXAM: Alert and oriented x 3 right-sided hemiparesis with slurred speech and expressive aphasia Follows commands. PSYCHIATRIC: Mood normal. SKIN: detail exam as documented in skin assessment - Constitutional Vitals: Temp Pulse Resp BP Pulse Ox 98.4 F 77 20 181/84 95 01/21/20 07:51 01/21/20 07:51 01/21/20 07:51 01/21/20 07:51 01/21/20 07:51 General appearance: Present: no acute distress, mild distress (difficulty with swallow and speech) HEART Score - HEART Score Troponin: Troponin T < 0.010 ng/mL (0.00-0.029) 01/18/20 15:30 Results - Labs CBC & Chem 7: 01/20/20 04:36 01/20/20 04:36 Labs: Laboratory Last Values WBC 10.5 K/mm3 (4.5-11.0) 01/20/20 04:36 RBC 4.41 M/mm3 (3.65-5.03) 01/20/20 04:36 Hgb 14.6 gm/dl (10.1-14.3) H 01/20/20 04:36 Hct 42.6 % (30.3-42.9) 01/20/20 04:36 MCV 97 fl (79-97) 01/20/20 04:36 MCH 33 pg (28-32) H 01/20/20 04:36 MCHC 34 % (30-34) 01/20/20 04:36 RDW 12.9 % (13.2-15.2) L 01/20/20 04:36 Plt Count 215 K/mm3 (140-440) 01/20/20 04:36 Lymph % (Auto) 25.7 % (13.4-35.0) 01/20/20 04:36 [place] % (Auto) 10.0 % (0.0-7.3) H 01/20/20 04:36 Eos % (Auto) 1.8 % (0.0-4.3) 01/20/20 04:36 Baso % (Auto) 0.2 % (0.0-1.8) 01/20/20 04:36 Lymph # 2.7 K/mm3 (1.2-5.4) 01/20/20 04:36 Pickett # 1.1 K/mm3 (0.0-0.8) H 01/20/20 04:36 Eos # 0.2 K/mm3 (0.0-0.4) 01/20/20 04:36 Baso # 0.0 K/mm3 (0.0-0.1) 01/20/20 04:36 Seg Neutrophils % 62.3 % (40.0-70.0) 01/20/20 04:36 Seg Neutrophils # 6.5 K/mm3 (1.8-7.7) 01/20/20 04:36 PT 14.0 Sec. (12.2-14.9) 01/18/20 13:45 INR 1.06 (0.87-1.13) 01/18/20 13:45 APTT 26.0 Sec. (24.2-36.6) 01/18/20 13:45 ABG pH 7.423 pH Units (7.350-7.450) 01/20/20 10:15 ABG pCO2 42.0 mm Hg 01/20/20 10:15 ABG pO2 128.1 mm Hg (80.0-90.0) H 01/20/20 10:15 ABG HCO3 26.8 mmol/L (20.0-26.0) H 01/20/20 10:15 ABG O2 Saturation 98.5 % (95.0-99.0) 01/20/20 10:15 ABG O2 Content 20.4 (0.0-44) 01/20/20 10:15 ABG Base Excess 2.1 mmol/L (-2.0-3.0) 01/20/20 10:15 ABG Hemoglobin 14.9 gm/dl (12.0-16.0) 01/20/20 10:15 ABG Carboxyhemoglobin 1.5 % (0.0-5.0) 01/20/20 10:15 ABG Methemoglobin 0.5 % (0.0-1.5) 01/20/20 10:15 Oxyhemoglobin 96.5 % (95.0-99.0) 01/20/20 10:15 FiO2 21 % 01/20/20 10:15 Sodium 136 mmol/L (137-145) L 01/20/20 04:36 Potassium 3.8 mmol/L (3.6-5.0) 01/20/20 04:36 Chloride 96.0 mmol/L (98-107) L 01/20/20 04:36 Carbon Dioxide 28 mmol/L (22-30) 01/20/20 04:36 Anion Gap 16 mmol/L 01/20/20 04:36 BUN 22 mg/dL (7-17) H 01/20/20 04:36 Creatinine 0.8 mg/dL (0.6-1.2) 01/20/20 04:36 Estimated GFR > 60 ml/min 01/20/20 04:36 BUN/Creatinine Ratio 28 % 01/20/20 04:36 Glucose 351 mg/dL (65-100) H 01/20/20 04:36 POC Glucose 235 (70-105) H 01/21/20 07:53 Hemoglobin A1c 8.4 % (4-6) H 01/20/20 04:36 Lactic Acid 1.30 mmol/L (0.7-2.0) 01/18/20 16:38 Calcium 8.9 mg/dL (8.4-10.2) 01/20/20 04:36 Total Bilirubin 0.50 mg/dL (0.1-1.2) 01/18/20 13:45 AST 25 units/L (5-40) 01/18/20 13:45 ALT 15 units/L (7-56) 01/18/20 13:45 Alkaline Phosphatase 84 units/L (35-129) 01/18/20 13:45 Troponin T < 0.010 ng/mL (0.00-0.029) 01/18/20 15:30 NT-Pro-B Natriuret Pep 362.7 pg/mL (0-900) 01/18/20 13:45 Total Protein 6.6 g/dL (6.3-8.2) 01/18/20 13:45 Albumin 4.0 g/dL (3.9-5) 01/18/20 13:45 Albumin/Globulin Ratio 1.5 % 01/18/20 13:45 Triglycerides 169 mg/dL (2-149) H 01/19/20 04:34 Cholesterol 165 mg/dL (50-199) 01/19/20 04:34 LDL Cholesterol Direct 107 mg/dL (50-130) 01/19/20 04:34 HDL Cholesterol 37 mg/dL (40-59) L 01/19/20 04:34 Cholesterol/HDL Ratio 4.45 % 01/19/20 04:34 Urine Color Yellow (Yellow) 01/18/20 16:17 Urine Turbidity Clear (Clear) 01/18/20 16:17 Urine pH 5.0 (5.0-7.0) 01/18/20 16:17 Ur Specific [place] 1.025 (1.003-1.030) 01/18/20 16:17 Urine Protein 30 mg/dl mg/dL (Negative) 01/18/20 16:17 Urine Glucose (UA) Neg mg/dL (Negative) 01/18/20 16:17 Urine Ketones 20 mg/dL (Negative) 01/18/20 16:17 Urine Blood Neg (Negative) 01/18/20 16:17 Urine Nitrite Neg (Negative) 01/18/20 16:17 Urine Bilirubin Neg (Negative) 01/18/20 16:17 Urine Urobilinogen 4.0 mg/dL (<2.0) 01/18/20 16:17 Ur Leukocyte Esterase Tr (Negative) 01/18/20 16:17 Urine WBC (Auto) 1.0 /HPF (0.0-6.0) 01/18/20 16:17 Urine RBC (Auto) 1.0 /HPF (0.0-6.0) 01/18/20 16:17 U Epithel Cells (Auto) < 1.0 /HPF (0-13.0) 01/18/20 16:17 Urine Bacteria (Auto) 1+ /HPF (Negative) 01/18/20 16:17 Urine Mucus 2+ /HPF 01/18/20 16:17 Microbiology: Microbiology 01/18/20 16:38 Peripheral/Venous Blood Culture - Preliminary NO GROWTH AFTER 48 HOURS 01/18/20 16:38 Peripheral/Venous Blood Culture - Preliminary NO GROWTH AFTER 48 HOURS - Diagnostic Impressions Diagnostic Impressions: Echocardiogram 01/18/20 18:39 Transthoracic Echocardiogram Indication: Stroke BP: 163/94 Conclusions *Global left ventricular systolic function is normal. *The estimated ejection fraction is 60-65%. *The right ventricular global systolic function is normal. *No atrial septal defected is demonstrated by color Doppler and agitated saline contrast. *Mild aortic cusp sclerosis is present. *There is no evidence of aortic regurgitation. *There is no evidence of mitral regurgitation. *There is trace tricuspid regurgitation. *The right ventricular systolic pressure is calculated at 14 mmHg. *There is no evidence of pulmonic regurgitation. Findings Left Ventricle: The left ventricular chamber size is normal. Mild concentric left ventricular hypertrophy is observed. Global left ventricular wall motion and contractility are within normal limits. Global left ventricular systolic function is normal. The estimated ejection fraction is 60-65%. Normal left ventricular diastolic filling is observed. Left Atrium: The left atrium is normal in size with no visual thrombus identified. Right Ventricle: The right ventricular cavity size is normal. The right ventricular global systolic function is normal. Right Atrium: The right atrium appears normal. The interatrial septum appears normal. No atrial septal defected is demonstrated by color Doppler and agitated saline contrast. Aortic Valve: The aortic valve is trileaflet. Mild aortic cusp sclerosis is present. There is no evidence of aortic regurgitation. There is no evidence of aortic stenosis. Mitral Valve: Mitral valve posterior leaflet calcification is visualized. There is no evidence of mitral regurgitation. There is no evidence of mitral stenosis. Tricuspid Valve: The tricuspid valve leaflets are normal. There is trace tricuspid regurgitation. The right ventricular systolic pressure is calculated at 14 mmHg. There is no tricuspid stenosis. Pulmonic Valve: The pulmonic valve appears normal. There is no evidence of pulmonic regurgitation. There is no pulmonic stenosis. Pericardium: There is no pericardial effusion. Aorta: There is no dilatation of the ascending aorta. There is no dilatation of the aortic arch. Measurements Chambers MM Name Value Normal Range Ao root diameter (MM) 2.9 cm (2 - 3.7) LA dimension (AP) MM 4.1 cm (1.9 - 4) LA:Ao ratio (MM) 1.41 ratio - AV cusp separation (MM) 1.7 cm (1.5 - 2.6) Chambers 2D Name Value Normal Range RVIDd (AP) 2D 2.65 cm (0.9 - 2.6) IVSd (2D) 1.21 cm (0.6 - 1.1) LVPWd (2D) 1.36 cm (0.6 - 1.1) IVS:LVPW ratio (2D) 0.89 ratio - LVIDd (2D) 3.88 cm (3.7 - 5.6) LVIDs (2D) 2.22 cm (2 - 3.8) LV FS (Teichholz) (2D) 42.8 % - LV FS (cube) (2D) 42.8 % - EF Teichholz (2D) 74.5 % - Ao root diameter (2D) 2.9 cm (2 - 3.7) LA dimension (AP) 2D 4 cm (1.9 - 4) LA:Ao ratio (2D) 1.38 ratio - Volumes/Mass Name Value Normal Range LA ESV SP 4CH (MOD) 50 ml - LA ESV SP 2CH (MOD) 79 ml - LA ESV BP (MOD) 64 ml - LA ESV BP (MOD) index 35.6 ml/m2 - Diastolic/Systolic Function Name Value Normal Range MV E-wave Vmax 0.64 m/sec - MV A-wave Vmax 1.27 m/sec - MV E:A ratio 0.5 ratio - LV septal e' Vmax 0.03 m/sec - LV lateral e' Vmax 0.05 m/sec - LV E:e' septal ratio 19.4 ratio - LV E:e' lateral ratio 12.9 ratio - Aortic Valve Name Value Normal Range AV VTI 34.3 cm - AV mean gradient 8 mmHg - LVOT diameter 2.1 cm - LVOT VTI 23.1 cm - LVOT mean gradient 4 mmHg - SV LVOT 80 ml - ZOË (continuity VTI) 2.33 cm2 - Mitral Valve Name Value Normal Range MV Vmax 1.36 m/sec - MV VTI 30.1 cm - MV peak gradient 7 mmHg - MV mean gradient 3 mmHg - MV PHT 125 msec - MVA (PHT) 1.76 cm2 - MVA (continuity VTI) 2.66 cm2 - Tricuspid Valve Name Value Normal Range TR Vmax 1.66 m/sec - TR peak gradient 11 mmHg - RAP 3 mmHg - RVSP 14 mmHg - Pulmonic Valve/Qp:Qs Name Value Normal Range PV Vmax 1.45 m/sec - PV VTI 28 cm - PV peak gradient 8 mmHg - PV mean gradient 5 mmHg - Bañuelos/IV: Voiding Method External Female Catheter IV Catheter Type [Left Hand] INT / Saline Lock IV Catheter Type [Right INT / Saline Lock Antecubital] Active Medications - Current Medications Current Medications: Generic Name Dose Route Start Last Admin Trade Name Freq PRN Reason Stop Dose Admin Acetaminophen 650 mg 01/18/20 18:37 Tylenol PO Q4H PRN Pain, Mild (1-3) Amlodipine Besylate 10 mg 01/20/20 12:00 01/20/20 12:07 Amlodipine PO Not Given DAILY [facility] Aspirin 325 mg 01/18/20 20:00 01/20/20 11:26 Aspirin PO Not Given QDAY [facility] Atorvastatin Calcium 40 mg 01/18/20 22:00 01/20/20 21:56 Lipitor PO 40 mg QHS [facility] Administration Bisacodyl 10 mg 01/18/20 18:37 Dulcolax DC QDAY PRN Constipation Dextrose 50 ml 01/18/20 20:05 D50w (25gm) Syringe IV Q30MIN PRN Hypoglycemia Protocol Diazepam 10 mg 01/18/20 22:00 01/20/20 21:56 Valium PO 10 mg QHS [facility] Administration Heparin Sodium (Porcine) 5,000 unit 01/18/20 22:00 01/20/20 21:56 Heparin SUB-Q 5,000 unit Q12HR [facility] Administration Hydrochlorothiazide 25 mg 01/19/20 10:00 01/20/20 11:26 Hctz PO Not Given QDAY [facility] Hydrocortisone Acetate 25 mg 01/18/20 22:00 01/20/20 21:57 Anucort-Hc DC 25 mg Q12HR [facility] Administration Insulin Glargine 40 units 01/21/20 10:00 Lantus SUB-Q BID [facility] Insulin Human Lispro 0 unit 01/18/20 22:00 01/20/20 21:57 Humalog SUB-Q 8 unit ACHS [facility] Administration Protocol Labetalol HCl 10 mg 01/19/20 14:23 01/20/20 04:36 Labetalol IV 10 mg Q4H PRN Administration HYPERTENSION Magnesium Hydroxide 30 ml 01/18/20 18:37 Milk Of Magnesia PO Q4H PRN Constipation Metoclopramide HCl 10 mg 01/18/20 18:37 Reglan PO Q6H PRN Nausea And Vomiting Metoprolol Tartrate 5 mg 01/21/20 12:00 Metoprolol IV Q6HR [facility] Ondansetron HCl 4 mg 01/18/20 18:37 Zofran IV Q8H PRN Nausea And Vomiting Pantoprazole Sodium 40 mg 01/19/20 10:00 01/20/20 11:26 Protonix PO Not Given DAILY [facility] Promethazine HCl 25 mg 01/18/20 18:37 Phenergan DC Q6H PRN Nausea And Vomiting Sodium Chloride 10 ml 01/18/20 18:37 Sodium Chloride Flush Syringe 10 Ml IV PRN PRN LINE FLUSH
[2020-01-21] MEDS: hydroCHLOROthiazide 25 MG TAB PO SCH (12:16)
[2020-01-21] MEDS: ASPIRIN 325 MG TAB PO SCH (12:16)
[2020-01-21] MEDS: amLODIPine 10 MG TAB PO SCH (12:16)
[2020-01-21] MEDS: PANTOPRAZOLE 40 MG TAB PO SCH (12:16)
[2020-01-21] MEDS: HEPARIN 5,000 UNIT/1 ML VIAL SUB-Q SCH ×2 (12:17→21:50)
--- NOTE | 2020-01-21 19:45 | Vascular Lab Report ---
VL carotid duplex BILAT INDICATION / CLINICAL INFORMATION: stroke. COMPARISON: 06/08/2018 FINDINGS: Moderate plaque formation at the left bifurcation. Velocity measurements and waveform analysis indica te mild (50-60%) of the proximal left internal carotid artery, according to Nascet criteria. These sa me criteria indicate less than 50% stenosis of the right internal carotid artery. Normal antegrade flow in both vertebral arteries. IMPRESSION: 1. Mild (50-60%) of the proximal left internal carotid artery. Signer Name: Maximiliano Moreno MD Signed: 01/21/2020 7:40 PM Workstation Name: [id number]
[2020-01-21] MEDS: diazePAM 5 MG TAB PO SCH (21:50)
[2020-01-21] MEDS: HYDROCORTISONE 25 MG RECTAL SUPP PR SCH (21:51)
[2020-01-22] MEDS: METOPROLOL TARTRATE 5 MG/5 ML INJ IV SCH ×5 (03:00→23:33)
[2020-01-22] MEDS: INSULIN LISPRO 100 UNIT/ML VIAL 3 mL SUB-Q SCH ×4 (08:27→21:42)
[2020-01-22] MEDS: LISINOPRIL 10 MG TAB PO SCH (09:20)
[2020-01-22] MEDS: hydroCHLOROthiazide 25 MG TAB PO SCH (09:20)
[2020-01-22] MEDS: amLODIPine 10 MG TAB PO SCH (09:21)
[2020-01-22] MEDS: HYDROCORTISONE 25 MG RECTAL SUPP PR SCH ×3 (09:21→21:26)
[2020-01-22] MEDS: PANTOPRAZOLE 40 MG TAB PO SCH (09:21)
[2020-01-22] MEDS: ASPIRIN 325 MG TAB PO SCH (09:21)
[2020-01-22] MEDS: INSULIN GLARGINE 100 UNITS/ML SUB-Q SCH ×2 (09:22→21:26)
[2020-01-22] MEDS: HEPARIN 5,000 UNIT/1 ML VIAL SUB-Q SCH ×2 (09:22→21:27)
--- NOTE | 2020-01-22 12:50 | Progress Note ---
Assessment and Plan Assessment and plan: Assessment and plan: 74 YO Female with HTN,HLD, DM, OA presents to the emergency department for evaluation. Patient is non-Austrian speaking and unable to provide history. Patient history taken via manager pricing via construction producer. As per interpreterthe patient reports that she was in her usual state of health at bedtime around 2200 hrs. Patient awoke from sleep this morning and was found to have right leg weakness. Patient was unable to move her leg and unable to ambulate due to loss of sensation. EMS was notified and upon arrival the patient was found to be in distress with a neurologic deficit. A code stroke was called and the patient was transported to [facility] for further care and eval uation of the aforementioned symptoms. Patient seen and evaluated in the emergency department. Lab and imaging studies reviewed. Patient found to have clinical symptoms consistent with CVA. Patient deemed outside the therapeutic window for TPA. Patient placed in observation status and admitted to medical floor and initiated on stroke protocol. Prior admission on 07/18/2017 reviewed. All medication listed at time of admission has been reconciled. Advanced care planning conducted in ED. 01/20: Patient two nights ago had sudden change from previously noted right sided weakness and had expressive aphasia, Repeat imaging studies confirmed CVA, Patient is beginning to show some improvement, will continue to improve BP. Family notified at bedside. Continue Rehab therapy and Monitor BP. CT of head done today-showed Subacute ischemic changes are seen in the left anterior cerebral artery territory 01/21. MRI brain showed left subacute infarct. Discussed with at bedside. She will need acute rehab. CM aware (1) CVA (cerebral vascular accident) Current Visit: Yes Status: Acute Plan to address problem: CVA protocol: 01/18/20-CT head- showed no acute finding 01/20/20-showed Subacute ischemic changes are seen in the left anterior cerebral artery territory neuro check every 2 hrs seizure precautions, antiplatelet therapy with ASA, statin therapy ECHO and carotid Doppler-results reviewed. MRI brain shows subacute left cerebral infarct PT -rec rehab (2) HTN (hypertension) Current Visit: Yes Status: Acute Qualifiers: Hypertension type: essential hypertension Qualified Code(s): I10 - Essential (primary) hypertension Plan to address problem: Monitor blood pressure closely resume home bp med amlodipine-will adjust bp med if needed (3) Hyperlipidemia Current Visit: Yes Status: Acute Qualifiers: Hyperlipidemia type: mixed hyperlipidemia Qualified Code(s): E78.2 - Mixed hyperlipidemia Plan to address problem: continue statin therapy. (4) Diabetes with hyperglycemia Current Visit: Yes Status: Acute Plan to address problem: Monitor blood sugar with SSI Continue lantus Insulin Discussed low carbohydrate diet (5) Osteoarthritis Current Visit: Yes Status: Acute Plan to address problem: Pain control, supportive care. X-ray femur and pelvis-no acute finding Chest x-ray-no acute finding (6) DVT prophylaxis Current Visit: Yes Status: Acute Plan to address problem: SCD to bilateral lower extremities while in bed, prophylactic anticoagulation- heparin. (7) Advance care planning Current Visit: Yes Status: Acute Will d/c pt when placement to SNF confirmed History Interval history: Patient seen and examined at bedside this morning. Patient is very lethargic this morning as she received sleeping. Hospitalist Physical - Constitutional Vitals: Temp Pulse Resp BP Pulse Ox 98.0 F 102 H 21 178/85 99 01/22/20 07:39 01/22/20 12:11 01/22/20 10:00 01/22/20 12:11 01/22/20 10:00 General appearance: Present: no acute distress - EENT Eyes: Present: PERRL - Neck Neck: Present: supple - Respiratory Respiratory: bilateral: CTA - Cardiovascular Heart Sounds: Present: S1 & S2 - Abdominal General gastrointestinal: soft, non-tender, non-distended - Psychiatric Psychiatric: appropriate mood/affect - Neurologic Neurologic: focal deficits (Left sided weakness ) HEART Score - HEART Score Troponin: Troponin T < 0.010 ng/mL (0.00-0.029) 01/18/20 15:30 Results - Labs CBC & Chem 7: 01/20/20 04:36 01/20/20 04:36 Labs: Laboratory Last Values WBC 10.5 K/mm3 (4.5-11.0) 01/20/20 04:36 RBC 4.41 M/mm3 (3.65-5.03) 01/20/20 04:36 Hgb 14.6 gm/dl (10.1-14.3) H 01/20/20 04:36 Hct 42.6 % (30.3-42.9) 01/20/20 04:36 MCV 97 fl (79-97) 01/20/20 04:36 MCH 33 pg (28-32) H 01/20/20 04:36 MCHC 34 % (30-34) 01/20/20 04:36 RDW 12.9 % (13.2-15.2) L 01/20/20 04:36 Plt Count 215 K/mm3 (140-440) 01/20/20 04:36 Lymph % (Auto) 25.7 % (13.4-35.0) 01/20/20 04:36 [place] % (Auto) 10.0 % (0.0-7.3) H 01/20/20 04:36 Eos % (Auto) 1.8 % (0.0-4.3) 01/20/20 04:36 Baso % (Auto) 0.2 % (0.0-1.8) 01/20/20 04:36 Lymph # 2.7 K/mm3 (1.2-5.4) 01/20/20 04:36 [place] # 1.1 K/mm3 (0.0-0.8) H 01/20/20 04:36 Eos # 0.2 K/mm3 (0.0-0.4) 01/20/20 04:36 Baso # 0.0 K/mm3 (0.0-0.1) 01/20/20 04:36 Seg Neutrophils % 62.3 % (40.0-70.0) 01/20/20 04:36 Seg Neutrophils # 6.5 K/mm3 (1.8-7.7) 01/20/20 04:36 PT 14.0 Sec. (12.2-14.9) 01/18/20 13:45 INR 1.06 (0.87-1.13) 01/18/20 13:45 APTT 26.0 Sec. (24.2-36.6) 01/18/20 13:45 ABG pH 7.423 pH Units (7.350-7.450) 01/20/20 10:15 ABG pCO2 42.0 mm Hg 01/20/20 10:15 ABG pO2 128.1 mm Hg (80.0-90.0) H 01/20/20 10:15 ABG HCO3 26.8 mmol/L (20.0-26.0) H 01/20/20 10:15 ABG O2 Saturation 98.5 % (95.0-99.0) 01/20/20 10:15 ABG O2 Content 20.4 (0.0-44) 01/20/20 10:15 ABG Base Excess 2.1 mmol/L (-2.0-3.0) 01/20/20 10:15 ABG Hemoglobin 14.9 gm/dl (12.0-16.0) 01/20/20 10:15 ABG Carboxyhemoglobin 1.5 % (0.0-5.0) 01/20/20 10:15 ABG Methemoglobin 0.5 % (0.0-1.5) 01/20/20 10:15 Oxyhemoglobin 96.5 % (95.0-99.0) 01/20/20 10:15 FiO2 21 % 01/20/20 10:15 Sodium 136 mmol/L (137-145) L 01/20/20 04:36 Potassium 3.8 mmol/L (3.6-5.0) 01/20/20 04:36 Chloride 96.0 mmol/L (98-107) L 01/20/20 04:36 Carbon Dioxide 28 mmol/L (22-30) 01/20/20 04:36 Anion Gap 16 mmol/L 01/20/20 04:36 BUN 22 mg/dL (7-17) H 01/20/20 04:36 Creatinine 0.8 mg/dL (0.6-1.2) 01/20/20 04:36 Estimated GFR > 60 ml/min 01/20/20 04:36 BUN/Creatinine Ratio 28 % 01/20/20 04:36 Glucose 351 mg/dL (65-100) H 01/20/20 04:36 POC Glucose 255 (70-105) H 01/22/20 11:54 Hemoglobin A1c 8.4 % (4-6) H 01/20/20 04:36 Lactic Acid 1.30 mmol/L (0.7-2.0) 01/18/20 16:38 Calcium 8.9 mg/dL (8.4-10.2) 01/20/20 04:36 Total Bilirubin 0.50 mg/dL (0.1-1.2) 01/18/20 13:45 AST 25 units/L (5-40) 01/18/20 13:45 ALT 15 units/L (7-56) 01/18/20 13:45 Alkaline Phosphatase 84 units/L (35-129) 01/18/20 13:45 Troponin T < 0.010 ng/mL (0.00-0.029) 01/18/20 15:30 NT-Pro-B Natriuret Pep 362.7 pg/mL (0-900) 01/18/20 13:45 Total Protein 6.6 g/dL (6.3-8.2) 01/18/20 13:45 Albumin 4.0 g/dL (3.9-5) 01/18/20 13:45 Albumin/Globulin Ratio 1.5 % 01/18/20 13:45 Triglycerides 169 mg/dL (2-149) H 01/19/20 04:34 Cholesterol 165 mg/dL (50-199) 01/19/20 04:34 LDL Cholesterol Direct 107 mg/dL (50-130) 01/19/20 04:34 HDL Cholesterol 37 mg/dL (40-59) L 01/19/20 04:34 Cholesterol/HDL Ratio 4.45 % 01/19/20 04:34 Urine Color Yellow (Yellow) 01/18/20 16:17 Urine Turbidity Clear (Clear) 01/18/20 16:17 Urine pH 5.0 (5.0-7.0) 01/18/20 16:17 Ur Specific [place] 1.025 (1.003-1.030) 01/18/20 16:17 Urine Protein 30 mg/dl mg/dL (Negative) 01/18/20 16:17 Urine Glucose (UA) Neg mg/dL (Negative) 01/18/20 16:17 Urine Ketones 20 mg/dL (Negative) 01/18/20 16:17 Urine Blood Neg (Negative) 01/18/20 16:17 Urine Nitrite Neg (Negative) 01/18/20 16:17 Urine Bilirubin Neg (Negative) 01/18/20 16:17 Urine Urobilinogen 4.0 mg/dL (<2.0) 01/18/20 16:17 Ur Leukocyte Esterase Tr (Negative) 01/18/20 16:17 Urine WBC (Auto) 1.0 /HPF (0.0-6.0) 01/18/20 16:17 Urine RBC (Auto) 1.0 /HPF (0.0-6.0) 01/18/20 16:17 U Epithel Cells (Auto) < 1.0 /HPF (0-13.0) 01/18/20 16:17 Urine Bacteria (Auto) 1+ /HPF (Negative) 01/18/20 16:17 Urine Mucus 2+ /HPF 01/18/20 16:17 Microbiology: Microbiology 01/18/20 16:38 Peripheral/Venous Blood Culture - Preliminary NO GROWTH AFTER 72 HOURS 01/18/20 16:38 Peripheral/Venous Blood Culture - Preliminary NO GROWTH AFTER 72 HOURS - Diagnostic Impressions Diagnostic Impressions: Echocardiogram 01/18/20 18:39 Transthoracic Echocardiogram Indication: Stroke BP: 163/94 Conclusions *Global left ventricular systolic function is normal. *The estimated ejection fraction is 60-65%. *The right ventricular global systolic function is normal. *No atrial septal defected is demonstrated by color Doppler and agitated saline contrast. *Mild aortic cusp sclerosis is present. *There is no evidence of aortic regurgitation. *There is no evidence of mitral regurgitation. *There is trace tricuspid regurgitation. *The right ventricular systolic pressure is calculated at 14 mmHg. *There is no evidence of pulmonic regurgitation. Findings Left Ventricle: The left ventricular chamber size is normal. Mild concentric left ventricular hypertrophy is observed. Global left ventricular wall motion and contractility are within normal limits. Global left ventricular systolic function is normal. The estimated ejection fraction is 60-65%. Normal left ventricular diastolic filling is observed. Left Atrium: The left atrium is normal in size with no visual thrombus identified. Right Ventricle: The right ventricular cavity size is normal. The right ventricular global systolic function is normal. Right Atrium: The right atrium appears normal. The interatrial septum appears normal. No atrial septal defected is demonstrated by color Doppler and agitated saline contrast. Aortic Valve: The aortic valve is trileaflet. Mild aortic cusp sclerosis is present. There is no evidence of aortic regurgitation. There is no evidence of aortic stenosis. Mitral Valve: Mitral valve posterior leaflet calcification is visualized. There is no evidence of mitral regurgitation. There is no evidence of mitral stenosis. Tricuspid Valve: The tricuspid valve leaflets are normal. There is trace tricuspid regurgitation. The right ventricular systolic pressure is calculated at 14 mmHg. There is no tricuspid stenosis. Pulmonic Valve: The pulmonic valve appears normal. There is no evidence of pulmonic regurgitation. There is no pulmonic stenosis. Pericardium: There is no pericardial effusion. Aorta: There is no dilatation of the ascending aorta. There is no dilatation of the aortic arch. Measurements Chambers MM Name Value Normal Range Ao root diameter (MM) 2.9 cm (2 - 3.7) LA dimension (AP) MM 4.1 cm (1.9 - 4) LA:Ao ratio (MM) 1.41 ratio - AV cusp separation (MM) 1.7 cm (1.5 - 2.6) Chambers 2D Name Value Normal Range RVIDd (AP) 2D 2.65 cm (0.9 - 2.6) IVSd (2D) 1.21 cm (0.6 - 1.1) LVPWd (2D) 1.36 cm (0.6 - 1.1) IVS:LVPW ratio (2D) 0.89 ratio - LVIDd (2D) 3.88 cm (3.7 - 5.6) LVIDs (2D) 2.22 cm (2 - 3.8) LV FS (Teichholz) (2D) 42.8 % - LV FS (cube) (2D) 42.8 % - EF Teichholz (2D) 74.5 % - Ao root diameter (2D) 2.9 cm (2 - 3.7) LA dimension (AP) 2D 4 cm (1.9 - 4) LA:Ao ratio (2D) 1.38 ratio - Volumes/Mass Name Value Normal Range LA ESV SP 4CH (MOD) 50 ml - LA ESV SP 2CH (MOD) 79 ml - LA ESV BP (MOD) 64 ml - LA ESV BP (MOD) index 35.6 ml/m2 - Diastolic/Systolic Function Name Value Normal Range MV E-wave Vmax 0.64 m/sec - MV A-wave Vmax 1.27 m/sec - MV E:A ratio 0.5 ratio - LV septal e' Vmax 0.03 m/sec - LV lateral e' Vmax 0.05 m/sec - LV E:e' septal ratio 19.4 ratio - LV E:e' lateral ratio 12.9 ratio - Aortic Valve Name Value Normal Range AV VTI 34.3 cm - AV mean gradient 8 mmHg - LVOT diameter 2.1 cm - LVOT VTI 23.1 cm - LVOT mean gradient 4 mmHg - SV LVOT 80 ml - ZOË (continuity VTI) 2.33 cm2 - Mitral Valve Name Value Normal Range MV Vmax 1.36 m/sec - MV VTI 30.1 cm - MV peak gradient 7 mmHg - MV mean gradient 3 mmHg - MV PHT 125 msec - MVA (PHT) 1.76 cm2 - MVA (continuity VTI) 2.66 cm2 - Tricuspid Valve Name Value Normal Range TR Vmax 1.66 m/sec - TR peak gradient 11 mmHg - RAP 3 mmHg - RVSP 14 mmHg - Pulmonic Valve/Qp:Qs Name Value Normal Range PV Vmax 1.45 m/sec - PV VTI 28 cm - PV peak gradient 8 mmHg - PV mean gradient 5 mmHg - Bañuelos/IV: Voiding Method External Female Catheter IV Catheter Type [Left Forearm Peripheral IV ] IV Catheter Type [Left Hand] INT / Saline Lock IV Catheter Type [Right INT / Saline Lock Antecubital] Active Medications - Current Medications Current Medications: Generic Name Dose Route Start Last Admin Trade Name Freq PRN Reason Stop Dose Admin Acetaminophen 650 mg 01/18/20 18:37 Tylenol PO Q4H PRN Pain, Mild (1-3) Amlodipine Besylate 10 mg 01/20/20 12:00 01/22/20 09:21 Amlodipine PO 10 mg DAILY FLOWER Administration Aspirin 325 mg 01/18/20 20:00 01/22/20 09:21 Aspirin PO 325 mg QDAY FLOWER Administration Atorvastatin Calcium 40 mg 01/18/20 22:00 01/21/20 21:51 Lipitor PO 40 mg QHS FLOWER Administration Bisacodyl 10 mg 01/18/20 18:37 Dulcolax TX QDAY PRN Constipation Dextrose 50 ml 01/18/20 20:05 D50w (25gm) Syringe IV Q30MIN PRN Hypoglycemia Protocol Diazepam 10 mg 01/18/20 22:00 01/21/20 21:50 Valium PO 10 mg QHS FLOWER Administration Heparin Sodium (Porcine) 5,000 unit 01/18/20 22:00 01/22/20 09:22 Heparin SUB-Q 5,000 unit Q12HR FLOWER Administration Hydrochlorothiazide 25 mg 01/19/20 10:00 01/22/20 09:20 Hctz PO 25 mg QDAY FLOWER Administration Hydrocortisone Acetate 25 mg 01/18/20 22:00 01/22/20 09:21 Anucort-Hc TX 25 mg Q12HR FLOWER Administration Insulin Glargine 40 units 01/21/20 10:00 01/22/20 09:22 Lantus SUB-Q 40 units BID FLOWER Administration Insulin Human Lispro 0 unit 01/18/20 22:00 01/22/20 12:05 Humalog SUB-Q 4 unit ACHS FLOWER Administration Protocol Labetalol HCl 10 mg 01/19/20 14:23 01/20/20 04:36 Labetalol IV 10 mg Q4H PRN Administration HYPERTENSION Lisinopril 10 mg 01/22/20 10:00 01/22/20 09:20 Zestril PO 10 mg QDAY FLOWER Administration Magnesium Hydroxide 30 ml 01/18/20 18:37 Milk Of Magnesia PO Q4H PRN Constipation Metoclopramide HCl 10 mg 01/18/20 18:37 Reglan PO Q6H PRN Nausea And Vomiting Metoprolol Tartrate 5 mg 01/21/20 12:00 01/22/20 12:11 Metoprolol IV 5 mg Q6HR FLOWER Administration Ondansetron HCl 4 mg 01/18/20 18:37 Zofran IV Q8H PRN Nausea And Vomiting Pantoprazole Sodium 40 mg 01/19/20 10:00 01/22/20 09:21 Protonix PO 40 mg DAILY FLOWER Administration Promethazine HCl 25 mg 01/18/20 18:37 Phenergan [place] Q6H PRN Nausea And Vomiting Sodium Chloride 10 ml 01/18/20 18:37 Sodium Chloride Flush Syringe 10 Ml IV PRN PRN LINE FLUSH Nutrition/Malnutrition Assess - Dietary Evaluation Nutrition/Malnutrition Findings: Nutrition Notes Start: 01/21/20 11:25 Freq: Status: Active Protocol: Document 01/21/20 11:25 LM (Rec: 01/21/20 11:52 LM [id number]) Nutrition Notes Need for Assessment generated from: MD Order Initial or Follow up Assessment Current Diagnosis Diabetes,Hypertension,Stroke, Hyperlipidemia Other Pertinent Diagnosis OA Current Diet Mech soft w/ chopped meats Labs/Tests POC glu 235 Pertinent Medications Reviewed Height 5 ft 4 in Weight 74.843 kg Ashley Body Weight (kg) 54.54 BMI 28.3 Weight Status Overweight Subjective/Other Information MD consult for poor oral intake. Pt has R sided weakness. Pt is Maldivian speaking and with aphasia. Current diet is per IT APPLICATION ARCHITECT recs. Per RN notes pt's swallowing ability has improved. Burn Absent Trauma Absent Difficulty In Swallowing Minimum of two criteria No physical signs of malnutrition #1 Nutrition Diagnosis Predicted suboptimal energy intake Etiology Aphasia, difficulty swallowing secondary to CVA As Evidenced by Signs and Symptoms Pt on soft diet and no intakes in chart Is patient on ventilator? No Is Patient Ambulatory and/or Out of Bed No REE-([facility]-confined to bed) [phone] Calculation Used for Recommendations [facility] Additional Notes Protein: 75-90g (1-1.2g/kg) Fluid: 1ml/kcal Nutrition Intervention Change Diet Order: Continue Goal #1 Meet at least 75% of energy and protein needs Anticipated Discharge Needs: [facility] soft Follow-Up By: 01/23/20 Additional Comments F/U for intakes, ONS needs
[2020-01-22] MEDS: diazePAM 5 MG TAB PO SCH (21:26)
[2020-01-23] MEDS: METOPROLOL TARTRATE 5 MG/5 ML INJ IV SCH ×3 (05:22→17:23)
[2020-01-23] MEDS: INSULIN LISPRO 100 UNIT/ML VIAL 3 mL SUB-Q SCH ×4 (08:39→22:33)
[2020-01-23] MEDS: PANTOPRAZOLE 40 MG TAB PO SCH (09:38)
[2020-01-23] MEDS: ASPIRIN 325 MG TAB PO SCH (09:38)
[2020-01-23] MEDS: hydroCHLOROthiazide 25 MG TAB PO SCH (09:38)
[2020-01-23] MEDS: HEPARIN 5,000 UNIT/1 ML VIAL SUB-Q SCH ×2 (09:38→22:35)
[2020-01-23] MEDS: LISINOPRIL 10 MG TAB PO SCH (09:39)
[2020-01-23] MEDS: HYDROCORTISONE 25 MG RECTAL SUPP PR SCH ×2 (09:39→22:33)
[2020-01-23] MEDS: amLODIPine 10 MG TAB PO SCH (09:39)
[2020-01-23] MEDS: INSULIN GLARGINE 100 UNITS/ML SUB-Q SCH ×2 (09:44→22:34)
--- NOTE | 2020-01-23 16:04 | Progress Note ---
Assessment and Plan Assessment and plan: Assessment and plan: 74 YO Female with HTN,HLD, DM, OA presents to the emergency department for evaluation. Patient is non-Finnish speaking and unable to provide history. 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 As per interpreterthe patient reports that she was in her usual state of health at bedtime around 2200 hrs. Patient awoke from sleep this morning and was found to have right leg weakness. Patient was unable to move her leg and unable to ambulate due to loss of sensation. EMS was notified and upon arrival the patient was found to be in distress with a neurologic deficit. A code stroke was called and the patient was transported to [facility] for further care and eval uation of the aforementioned symptoms. Patient seen and evaluated in the emergency department. Lab and imaging studies reviewed. Patient found to have clinical symptoms consistent with CVA. Patient deemed outside the therapeutic window for TPA. Patient placed in observation status and admitted to medical floor and initiated on stroke protocol. Prior admission on 07/18/2017 reviewed. All medication listed at time of admission has been reconciled. Advanced care planning conducted in ED. 01/20: Patient two nights ago had sudden change from previously noted right sided weakness and had expressive aphasia, Repeat imaging studies confirmed CVA, Patient is beginning to show some improvement, will continue to improve BP. Family notified at bedside. Continue Rehab therapy and Monitor BP. CT of head done today-showed Subacute ischemic changes are seen in the left anterior cerebral artery territory 01/21. MRI brain showed left subacute infarct. Discussed with at bedside. She will need acute rehab. CM aware 01/22. Awaiting insurance auth. No change in clinical condition (1) CVA (cerebral vascular accident) Current Visit: Yes Status: Acute Plan to address problem: CVA protocol: 01/18/20-CT head- showed no acute finding 01/20/20-showed Subacute ischemic changes are seen in the left anterior cerebral artery territory neuro check every 2 hrs seizure precautions, antiplatelet therapy with ASA, statin therapy ECHO and carotid Doppler-results reviewed. MRI brain shows subacute left cerebral infarct PT -rec rehab (2) HTN (hypertension) Current Visit: Yes Status: Acute Qualifiers: Hypertension type: essential hypertension Qualified Code(s): I10 - Essential (primary) hypertension Plan to address problem: Monitor blood pressure closely resume home bp med amlodipine-will adjust bp med if needed (3) Hyperlipidemia Current Visit: Yes Status: Acute Qualifiers: Hyperlipidemia type: mixed hyperlipidemia Qualified Code(s): E78.2 - Mixed hyperlipidemia Plan to address problem: continue statin therapy. (4) Diabetes with hyperglycemia Current Visit: Yes Status: Acute Plan to address problem: Monitor blood sugar with SSI Continue lantus Insulin Discussed low carbohydrate diet (5) Osteoarthritis Current Visit: Yes Status: Acute Plan to address problem: Pain control, supportive care. X-ray femur and pelvis-no acute finding Chest x-ray-no acute finding (6) DVT prophylaxis Current Visit: Yes Status: Acute Plan to address problem: SCD to bilateral lower extremities while in bed, prophylactic anticoagulation- heparin. (7) Advance care planning Current Visit: Yes Status: Acute Will d/c pt when placement to SNF confirmed History Interval history: Patient seen and examined at bedside this morning. More awake today Hospitalist Physical - Constitutional Vitals: Temp Pulse Resp BP Pulse Ox 97.9 F 92 H 18 133/81 96 01/23/20 11:42 01/23/20 11:42 01/23/20 11:42 01/23/20 11:42 01/23/20 11:42 General appearance: Present: no acute distress - EENT Eyes: Present: PERRL - Respiratory Respiratory effort: normal Respiratory: bilateral: CTA - Cardiovascular Rhythm: regular Heart Sounds: Present: S1 & S2 - Extremities Extremities: no ischemia, No edema - Abdominal General gastrointestinal: soft, non-tender, non-distended - Neurologic Neurologic: other (right sided weakness) HEART Score - HEART Score Troponin: Troponin T < 0.010 ng/mL (0.00-0.029) 01/18/20 15:30 Results - Labs CBC & Chem 7: 01/20/20 04:36 01/20/20 04:36 Labs: Laboratory Last Values WBC 10.5 K/mm3 (4.5-11.0) 01/20/20 04:36 RBC 4.41 M/mm3 (3.65-5.03) 01/20/20 04:36 Hgb 14.6 gm/dl (10.1-14.3) H 01/20/20 04:36 Hct 42.6 % (30.3-42.9) 01/20/20 04:36 MCV 97 fl (79-97) 01/20/20 04:36 MCH 33 pg (28-32) H 01/20/20 04:36 MCHC 34 % (30-34) 01/20/20 04:36 RDW 12.9 % (13.2-15.2) L 01/20/20 04:36 Plt Count 215 K/mm3 (140-440) 01/20/20 04:36 Lymph % (Auto) 25.7 % (13.4-35.0) 01/20/20 04:36 [place] % (Auto) 10.0 % (0.0-7.3) H 01/20/20 04:36 Eos % (Auto) 1.8 % (0.0-4.3) 01/20/20 04:36 Baso % (Auto) 0.2 % (0.0-1.8) 01/20/20 04:36 Lymph # 2.7 K/mm3 (1.2-5.4) 01/20/20 04:36 [place] # 1.1 K/mm3 (0.0-0.8) H 01/20/20 04:36 Eos # 0.2 K/mm3 (0.0-0.4) 01/20/20 04:36 Baso # 0.0 K/mm3 (0.0-0.1) 01/20/20 04:36 Seg Neutrophils % 62.3 % (40.0-70.0) 01/20/20 04:36 Seg Neutrophils # 6.5 K/mm3 (1.8-7.7) 01/20/20 04:36 PT 14.0 Sec. (12.2-14.9) 01/18/20 13:45 INR 1.06 (0.87-1.13) 01/18/20 13:45 APTT 26.0 Sec. (24.2-36.6) 01/18/20 13:45 ABG pH 7.423 pH Units (7.350-7.450) 01/20/20 10:15 ABG pCO2 42.0 mm Hg 01/20/20 10:15 ABG pO2 128.1 mm Hg (80.0-90.0) H 01/20/20 10:15 ABG HCO3 26.8 mmol/L (20.0-26.0) H 01/20/20 10:15 ABG O2 Saturation 98.5 % (95.0-99.0) 01/20/20 10:15 ABG O2 Content 20.4 (0.0-44) 01/20/20 10:15 ABG Base Excess 2.1 mmol/L (-2.0-3.0) 01/20/20 10:15 ABG Hemoglobin 14.9 gm/dl (12.0-16.0) 01/20/20 10:15 ABG Carboxyhemoglobin 1.5 % (0.0-5.0) 01/20/20 10:15 ABG Methemoglobin 0.5 % (0.0-1.5) 01/20/20 10:15 Oxyhemoglobin 96.5 % (95.0-99.0) 01/20/20 10:15 FiO2 21 % 01/20/20 10:15 Sodium 136 mmol/L (137-145) L 01/20/20 04:36 Potassium 3.8 mmol/L (3.6-5.0) 01/20/20 04:36 Chloride 96.0 mmol/L (98-107) L 01/20/20 04:36 Carbon Dioxide 28 mmol/L (22-30) 01/20/20 04:36 Anion Gap 16 mmol/L 01/20/20 04:36 BUN 22 mg/dL (7-17) H 01/20/20 04:36 Creatinine 0.8 mg/dL (0.6-1.2) 01/20/20 04:36 Estimated GFR > 60 ml/min 01/20/20 04:36 BUN/Creatinine Ratio 28 % 01/20/20 04:36 Glucose 351 mg/dL (65-100) H 01/20/20 04:36 POC Glucose 337 (70-105) H 01/23/20 11:56 Hemoglobin A1c 8.4 % (4-6) H 01/20/20 04:36 Lactic Acid 1.30 mmol/L (0.7-2.0) 01/18/20 16:38 Calcium 8.9 mg/dL (8.4-10.2) 01/20/20 04:36 Total Bilirubin 0.50 mg/dL (0.1-1.2) 01/18/20 13:45 AST 25 units/L (5-40) 01/18/20 13:45 ALT 15 units/L (7-56) 01/18/20 13:45 Alkaline Phosphatase 84 units/L (35-129) 01/18/20 13:45 Troponin T < 0.010 ng/mL (0.00-0.029) 01/18/20 15:30 NT-Pro-B Natriuret Pep 362.7 pg/mL (0-900) 01/18/20 13:45 Total Protein 6.6 g/dL (6.3-8.2) 01/18/20 13:45 Albumin 4.0 g/dL (3.9-5) 01/18/20 13:45 Albumin/Globulin Ratio 1.5 % 01/18/20 13:45 Triglycerides 169 mg/dL (2-149) H 01/19/20 04:34 Cholesterol 165 mg/dL (50-199) 01/19/20 04:34 LDL Cholesterol Direct 107 mg/dL (50-130) 01/19/20 04:34 HDL Cholesterol 37 mg/dL (40-59) L 01/19/20 04:34 Cholesterol/HDL Ratio 4.45 % 01/19/20 04:34 Urine Color Yellow (Yellow) 01/18/20 16:17 Urine Turbidity Clear (Clear) 01/18/20 16:17 Urine pH 5.0 (5.0-7.0) 01/18/20 16:17 Ur Specific [place] 1.025 (1.003-1.030) 01/18/20 16:17 Urine Protein 30 mg/dl mg/dL (Negative) 01/18/20 16:17 Urine Glucose (UA) Neg mg/dL (Negative) 01/18/20 16:17 Urine Ketones 20 mg/dL (Negative) 01/18/20 16:17 Urine Blood Neg (Negative) 01/18/20 16:17 Urine Nitrite Neg (Negative) 01/18/20 16:17 Urine Bilirubin Neg (Negative) 01/18/20 16:17 Urine Urobilinogen 4.0 mg/dL (<2.0) 01/18/20 16:17 Ur Leukocyte Esterase Tr (Negative) 01/18/20 16:17 Urine WBC (Auto) 1.0 /HPF (0.0-6.0) 01/18/20 16:17 Urine RBC (Auto) 1.0 /HPF (0.0-6.0) 01/18/20 16:17 U Epithel Cells (Auto) < 1.0 /HPF (0-13.0) 01/18/20 16:17 Urine Bacteria (Auto) 1+ /HPF (Negative) 01/18/20 16:17 Urine Mucus 2+ /HPF 01/18/20 16:17 Coronavirus (PCR) Negative (Negative) 01/22/20 Unknown Microbiology: Microbiology 01/18/20 16:38 Peripheral/Venous Blood Culture - Preliminary NO GROWTH AFTER 4 DAYS 01/18/20 16:38 Peripheral/Venous Blood Culture - Preliminary NO GROWTH AFTER 4 DAYS - Diagnostic Impressions Diagnostic Impressions: Echocardiogram 01/18/20 18:39 Transthoracic Echocardiogram Indication: Stroke BP: 163/94 Conclusions *Global left ventricular systolic function is normal. *The estimated ejection fraction is 60-65%. *The right ventricular global systolic function is normal. *No atrial septal defected is demonstrated by color Doppler and agitated saline contrast. *Mild aortic cusp sclerosis is present. *There is no evidence of aortic regurgitation. *There is no evidence of mitral regurgitation. *There is trace tricuspid regurgitation. *The right ventricular systolic pressure is calculated at 14 mmHg. *There is no evidence of pulmonic regurgitation. Findings Left Ventricle: The left ventricular chamber size is normal. Mild concentric left ventricular hypertrophy is observed. Global left ventricular wall motion and contractility are within normal limits. Global left ventricular systolic function is normal. The estimated ejection fraction is 60-65%. Normal left ventricular diastolic filling is observed. Left Atrium: The left atrium is normal in size with no visual thrombus identified. Right Ventricle: The right ventricular cavity size is normal. The right ventricular global systolic function is normal. Right Atrium: The right atrium appears normal. The interatrial septum appears normal. No atrial septal defected is demonstrated by color Doppler and agitated saline contrast. Aortic Valve: The aortic valve is trileaflet. Mild aortic cusp sclerosis is present. There is no evidence of aortic regurgitation. There is no evidence of aortic stenosis. Mitral Valve: Mitral valve posterior leaflet calcification is visualized. There is no evidence of mitral regurgitation. There is no evidence of mitral stenosis. Tricuspid Valve: The tricuspid valve leaflets are normal. There is trace tricuspid regurgitation. The right ventricular systolic pressure is calculated at 14 mmHg. There is no tricuspid stenosis. Pulmonic Valve: The pulmonic valve appears normal. There is no evidence of pulmonic regurgitation. There is no pulmonic stenosis. Pericardium: There is no pericardial effusion. Aorta: There is no dilatation of the ascending aorta. There is no dilatation of the aortic arch. Measurements Chambers MM Name Value Normal Range Ao root diameter (MM) 2.9 cm (2 - 3.7) LA dimension (AP) MM 4.1 cm (1.9 - 4) LA:Ao ratio (MM) 1.41 ratio - AV cusp separation (MM) 1.7 cm (1.5 - 2.6) Chambers 2D Name Value Normal Range RVIDd (AP) 2D 2.65 cm (0.9 - 2.6) IVSd (2D) 1.21 cm (0.6 - 1.1) LVPWd (2D) 1.36 cm (0.6 - 1.1) IVS:LVPW ratio (2D) 0.89 ratio - LVIDd (2D) 3.88 cm (3.7 - 5.6) LVIDs (2D) 2.22 cm (2 - 3.8) LV FS (Teichholz) (2D) 42.8 % - LV FS (cube) (2D) 42.8 % - EF Teichholz (2D) 74.5 % - Ao root diameter (2D) 2.9 cm (2 - 3.7) LA dimension (AP) 2D 4 cm (1.9 - 4) LA:Ao ratio (2D) 1.38 ratio - Volumes/Mass Name Value Normal Range LA ESV SP 4CH (MOD) 50 ml - LA ESV SP 2CH (MOD) 79 ml - LA ESV BP (MOD) 64 ml - LA ESV BP (MOD) index 35.6 ml/m2 - Diastolic/Systolic Function Name Value Normal Range MV E-wave Vmax 0.64 m/sec - MV A-wave Vmax 1.27 m/sec - MV E:A ratio 0.5 ratio - LV septal e' Vmax 0.03 m/sec - LV lateral e' Vmax 0.05 m/sec - LV E:e' septal ratio 19.4 ratio - LV E:e' lateral ratio 12.9 ratio - Aortic Valve Name Value Normal Range AV VTI 34.3 cm - AV mean gradient 8 mmHg - LVOT diameter 2.1 cm - LVOT VTI 23.1 cm - LVOT mean gradient 4 mmHg - SV LVOT 80 ml - ZOË (continuity VTI) 2.33 cm2 - Mitral Valve Name Value Normal Range MV Vmax 1.36 m/sec - MV VTI 30.1 cm - MV peak gradient 7 mmHg - MV mean gradient 3 mmHg - MV PHT 125 msec - MVA (PHT) 1.76 cm2 - MVA (continuity VTI) 2.66 cm2 - Tricuspid Valve Name Value Normal Range TR Vmax 1.66 m/sec - TR peak gradient 11 mmHg - RAP 3 mmHg - RVSP 14 mmHg - Pulmonic Valve/Qp:Qs Name Value Normal Range PV Vmax 1.45 m/sec - PV VTI 28 cm - PV peak gradient 8 mmHg - PV mean gradient 5 mmHg - Bañuelos/IV: Voiding Method External Female Catheter IV Catheter Type [Left Forearm Peripheral IV ] IV Catheter Type [Left Hand] INT / Saline Lock IV Catheter Type [Right INT / Saline Lock Antecubital] Active Medications - Current Medications Current Medications: Generic Name Dose Route Start Last Admin Trade Name Freq PRN Reason Stop Dose Admin Acetaminophen 650 mg 01/18/20 18:37 Tylenol PO Q4H PRN Pain, Mild (1-3) Amlodipine Besylate 10 mg 01/20/20 12:00 01/23/20 09:39 Amlodipine PO 10 mg DAILY FLOWER Administration Aspirin 325 mg 01/18/20 20:00 01/23/20 09:38 Aspirin PO 325 mg QDAY FLOWER Administration Atorvastatin Calcium 40 mg 01/18/20 22:00 01/22/20 21:26 Lipitor PO 40 mg QHS FLOWER Administration Bisacodyl 10 mg 01/18/20 18:37 Dulcolax NH QDAY PRN Constipation Dextrose 50 ml 01/18/20 20:05 D50w (25gm) Syringe IV Q30MIN PRN Hypoglycemia Protocol Diazepam 10 mg 01/18/20 22:00 01/22/20 21:26 Valium PO 10 mg QHS FLOWER Administration Heparin Sodium (Porcine) 5,000 unit 01/18/20 22:00 01/23/20 09:38 Heparin SUB-Q 5,000 unit Q12HR FLOWER Administration Hydrochlorothiazide 25 mg 01/19/20 10:00 01/23/20 09:38 Hctz PO 25 mg QDAY FLOWER Administration Hydrocortisone Acetate 25 mg 01/18/20 22:00 01/23/20 09:39 Anucort-Hc NH 25 mg Q12HR FLOWER Administration Insulin Glargine 40 units 01/21/20 10:00 01/23/20 09:44 Lantus SUB-Q 40 units BID FLOWER Administration Insulin Human Lispro 0 unit 01/18/20 22:00 01/23/20 12:08 Humalog SUB-Q 6 unit ACHS FLOWER Administration Protocol Labetalol HCl 10 mg 01/19/20 14:23 01/20/20 04:36 Labetalol IV 10 mg Q4H PRN Administration HYPERTENSION Lisinopril 10 mg 01/22/20 10:00 01/23/20 09:39 Zestril PO 10 mg QDAY FLOWER Administration Magnesium Hydroxide 30 ml 01/18/20 18:37 01/22/20 16:25 Milk Of Magnesia PO 30 ml Q4H PRN Administration Constipation Metoclopramide HCl 10 mg 01/18/20 18:37 Reglan PO Q6H PRN Nausea And Vomiting Metoprolol Tartrate 5 mg 01/21/20 12:00 01/23/20 12:08 Metoprolol IV 5 mg Q6HR FLOWER Administration Ondansetron HCl 4 mg 01/18/20 18:37 Zofran IV Q8H PRN Nausea And Vomiting Pantoprazole Sodium 40 mg 01/19/20 10:00 01/23/20 09:38 Protonix PO 40 mg DAILY FLOWER Administration Promethazine HCl 25 mg 01/18/20 18:37 Phenergan NH Q6H PRN Nausea And Vomiting Sodium Chloride 10 ml 01/18/20 18:37 Sodium Chloride Flush Syringe 10 Ml IV PRN PRN LINE FLUSH Nutrition/Malnutrition Assess - Dietary Evaluation Nutrition/Malnutrition Findings: Nutrition Notes Start: 01/21/20 11:25 Freq: Status: Active Protocol: Document 01/23/20 12:09 AL (Rec: 01/23/20 13:22 AL [id number]) Co-Sign 01/23/20 12:09 LM Nutrition Notes Initial or Follow up Reassessment Current Diagnosis Diabetes,Hypertension,Stroke, Hyperlipidemia Other Pertinent Diagnosis OA Current Diet Mech soft w/ chopped meats Labs/Tests POC Glu 293 Pertinent Medications Reviewed Height 5 ft 4 in Weight 72 kg [place] Body Weight (kg) 54.54 BMI 27.2 Weight change and time frame Wt change noted Weight Status Overweight Subjective/Other Information F/U for intakes and ONS needs. RN reported pt ate over 75% of her breakfast. RN reports pt is also drinking liquids well. RN reports pt's is feeding her and she is tolerating diet well. Percent of energy/protein needs met: 91%/100% Burn Absent Trauma Absent Difficulty In Swallowing Minimum of two criteria No physical signs of malnutrition #1 Nutrition Diagnosis Predicted suboptimal energy intake Diagnosis Progress(for reassessment Resolved documentation) Is patient on ventilator? No Is Patient Ambulatory and/or Out of Bed No REE-([facility]-confined to bed) 6998.144 Calculation Used for Recommendations [facility] Additional Notes Protein: 72-86g (1-1.2g/kg) Fluid: 1ml/kcal Nutrition Intervention Change Diet Order: Continue Goal #1 Meet at least 75% of energy and protein needs Anticipated Discharge Needs: Mech soft/consistent CHO/ cardiac Revisit per MD consult or patient Sign Off request:
[2020-01-23] MEDS: diazePAM 5 MG TAB PO SCH (22:24)
[2020-01-24] MEDS: METOPROLOL TARTRATE 5 MG/5 ML INJ IV SCH ×4 (00:33→17:09)
[2020-01-24] MEDS: INSULIN LISPRO 100 UNIT/ML VIAL 3 mL SUB-Q SCH ×4 (08:33→21:58)
[2020-01-24] MEDS: PANTOPRAZOLE 40 MG TAB PO SCH (09:41)
[2020-01-24] MEDS: LISINOPRIL 10 MG TAB PO SCH (09:41)
[2020-01-24] MEDS: HEPARIN 5,000 UNIT/1 ML VIAL SUB-Q SCH ×2 (09:42→21:58)
[2020-01-24] MEDS: amLODIPine 10 MG TAB PO SCH (09:42)
[2020-01-24] MEDS: hydroCHLOROthiazide 25 MG TAB PO SCH (09:42)
[2020-01-24] MEDS: ASPIRIN 325 MG TAB PO SCH (09:42)
[2020-01-24] MEDS: HYDROCORTISONE 25 MG RECTAL SUPP PR SCH ×2 (09:44→22:01)
[2020-01-24] MEDS: INSULIN GLARGINE 100 UNITS/ML SUB-Q SCH ×2 (09:44→21:58)
--- NOTE | 2020-01-24 12:31 | Progress Note ---
Assessment and Plan Assessment and plan: Assessment and plan: 74 YO Female with HTN,HLD, DM, OA presents to the emergency department for evaluation. Patient is non-Gibraltarian speaking and unable to provide history. Patient history taken via behavioral specialist via market investigator. As per interpreterthe patient reports that she was in her usual state of health at bedtime around 2200 hrs. Patient awoke from sleep this morning and was found to have right leg weakness. Patient was unable to move her leg and unable to ambulate due to loss of sensation. EMS was notified and upon arrival the patient was found to be in distress with a neurologic deficit. A code stroke was called and the patient was transported to [facility] for further care and eval uation of the aforementioned symptoms. Patient seen and evaluated in the emergency department. Lab and imaging studies reviewed. Patient found to have clinical symptoms consistent with CVA. Patient deemed outside the therapeutic window for TPA. Patient placed in observation status and admitted to medical floor and initiated on stroke protocol. Prior admission on 07/18/2017 reviewed. All medication listed at time of admission has been reconciled. Advanced care planning conducted in ED. 01/20: Patient two nights ago had sudden change from previously noted right sided weakness and had expressive aphasia, Repeat imaging studies confirmed CVA, Patient is beginning to show some improvement, will continue to improve BP. Family notified at bedside. Continue Rehab therapy and Monitor BP. CT of head done today-showed Subacute ischemic changes are seen in the left anterior cerebral artery territory 01/21. MRI brain showed left subacute infarct. Discussed with at bedside. She will need acute rehab. CM aware 01/22. Awaiting insurance auth. No change in clinical condition 01/23. Seen getting PT. She ate all bher breakfast today as per . (1) CVA (cerebral vascular accident) Current Visit: Yes Status: Acute Plan to address problem: CVA protocol: 01/18/20-CT head- showed no acute finding 01/20/20-showed Subacute ischemic changes are seen in the left anterior cerebral artery territory neuro check every 2 hrs seizure precautions, antiplatelet therapy with ASA, statin therapy ECHO and carotid Doppler-results reviewed. MRI brain shows subacute left cerebral infarct PT -rec rehab. Awaiting placement (2) HTN (hypertension) Current Visit: Yes Status: Acute Qualifiers: Hypertension type: essential hypertension Qualified Code(s): I10 - Essential (primary) hypertension Plan to address problem: Monitor blood pressure closely resume home bp med amlodipine-will adjust bp med if needed (3) Hyperlipidemia Current Visit: Yes Status: Acute Qualifiers: Hyperlipidemia type: mixed hyperlipidemia Qualified Code(s): E78.2 - Mixed hyperlipidemia Plan to address problem: continue statin therapy. (4) Diabetes with hyperglycemia Current Visit: Yes Status: Acute Plan to address problem: Monitor blood sugar with SSI Continue lantus Insulin Discussed low carbohydrate diet (5) Osteoarthritis Current Visit: Yes Status: Acute Plan to address problem: Pain control, supportive care. X-ray femur and pelvis-no acute finding Chest x-ray-no acute finding (6) DVT prophylaxis Current Visit: Yes Status: Acute Plan to address problem: SCD to bilateral lower extremities while in bed, prophylactic anticoagulation- heparin. (7) Advance care planning Current Visit: Yes Status: Acute Will d/c pt when placement to SNF confirmed History Interval history: Patient seen and examined at bedside this morning. Getting PT. Discussed with at bedside Hospitalist Physical - Constitutional Vitals: Temp Pulse Resp BP Pulse Ox 98.0 F 82 20 113/71 91 01/24/20 11:19 01/24/20 11:54 01/24/20 11:19 01/24/20 11:54 01/24/20 11:19 General appearance: Present: no acute distress - EENT Eyes: Present: PERRL - Respiratory Respiratory: bilateral: CTA - Cardiovascular Heart Sounds: Present: S1 & S2 - Extremities Extremities: No edema - Abdominal General gastrointestinal: soft, non-tender, non-distended - Neurologic Neurologic: focal deficits HEART Score - HEART Score Troponin: Troponin T < 0.010 ng/mL (0.00-0.029) 01/18/20 15:30 Results - Labs CBC & Chem 7: 01/20/20 04:36 01/20/20 04:36 Labs: Laboratory Last Values WBC 10.5 K/mm3 (4.5-11.0) 01/20/20 04:36 RBC 4.41 M/mm3 (3.65-5.03) 01/20/20 04:36 Hgb 14.6 gm/dl (10.1-14.3) H 01/20/20 04:36 Hct 42.6 % (30.3-42.9) 01/20/20 04:36 MCV 97 fl (79-97) 01/20/20 04:36 MCH 33 pg (28-32) H 01/20/20 04:36 MCHC 34 % (30-34) 01/20/20 04:36 RDW 12.9 % (13.2-15.2) L 01/20/20 04:36 Plt Count 215 K/mm3 (140-440) 01/20/20 04:36 Lymph % (Auto) 25.7 % (13.4-35.0) 01/20/20 04:36 Desha % (Auto) 10.0 % (0.0-7.3) H 01/20/20 04:36 Eos % (Auto) 1.8 % (0.0-4.3) 01/20/20 04:36 Baso % (Auto) 0.2 % (0.0-1.8) 01/20/20 04:36 Lymph # 2.7 K/mm3 (1.2-5.4) 01/20/20 04:36 Desha # 1.1 K/mm3 (0.0-0.8) H 01/20/20 04:36 Eos # 0.2 K/mm3 (0.0-0.4) 01/20/20 04:36 Baso # 0.0 K/mm3 (0.0-0.1) 01/20/20 04:36 Seg Neutrophils % 62.3 % (40.0-70.0) 01/20/20 04:36 Seg Neutrophils # 6.5 K/mm3 (1.8-7.7) 01/20/20 04:36 PT 14.0 Sec. (12.2-14.9) 01/18/20 13:45 INR 1.06 (0.87-1.13) 01/18/20 13:45 APTT 26.0 Sec. (24.2-36.6) 01/18/20 13:45 ABG pH 7.423 pH Units (7.350-7.450) 01/20/20 10:15 ABG pCO2 42.0 mm Hg 01/20/20 10:15 ABG pO2 128.1 mm Hg (80.0-90.0) H 01/20/20 10:15 ABG HCO3 26.8 mmol/L (20.0-26.0) H 01/20/20 10:15 ABG O2 Saturation 98.5 % (95.0-99.0) 01/20/20 10:15 ABG O2 Content 20.4 (0.0-44) 01/20/20 10:15 ABG Base Excess 2.1 mmol/L (-2.0-3.0) 01/20/20 10:15 ABG Hemoglobin 14.9 gm/dl (12.0-16.0) 01/20/20 10:15 ABG Carboxyhemoglobin 1.5 % (0.0-5.0) 01/20/20 10:15 ABG Methemoglobin 0.5 % (0.0-1.5) 01/20/20 10:15 Oxyhemoglobin 96.5 % (95.0-99.0) 01/20/20 10:15 FiO2 21 % 01/20/20 10:15 Sodium 136 mmol/L (137-145) L 01/20/20 04:36 Potassium 3.8 mmol/L (3.6-5.0) 01/20/20 04:36 Chloride 96.0 mmol/L (98-107) L 01/20/20 04:36 Carbon Dioxide 28 mmol/L (22-30) 01/20/20 04:36 Anion Gap 16 mmol/L 01/20/20 04:36 BUN 22 mg/dL (7-17) H 01/20/20 04:36 Creatinine 0.8 mg/dL (0.6-1.2) 01/20/20 04:36 Estimated GFR > 60 ml/min 01/20/20 04:36 BUN/Creatinine Ratio 28 % 01/20/20 04:36 Glucose 351 mg/dL (65-100) H 01/20/20 04:36 POC Glucose 356 (70-105) H 01/24/20 11:32 Hemoglobin A1c 8.4 % (4-6) H 01/20/20 04:36 Lactic Acid 1.30 mmol/L (0.7-2.0) 01/18/20 16:38 Calcium 8.9 mg/dL (8.4-10.2) 01/20/20 04:36 Total Bilirubin 0.50 mg/dL (0.1-1.2) 01/18/20 13:45 AST 25 units/L (5-40) 01/18/20 13:45 ALT 15 units/L (7-56) 01/18/20 13:45 Alkaline Phosphatase 84 units/L (35-129) 01/18/20 13:45 Troponin T < 0.010 ng/mL (0.00-0.029) 01/18/20 15:30 NT-Pro-B Natriuret Pep 362.7 pg/mL (0-900) 01/18/20 13:45 Total Protein 6.6 g/dL (6.3-8.2) 01/18/20 13:45 Albumin 4.0 g/dL (3.9-5) 01/18/20 13:45 Albumin/Globulin Ratio 1.5 % 01/18/20 13:45 Triglycerides 169 mg/dL (2-149) H 01/19/20 04:34 Cholesterol 165 mg/dL (50-199) 01/19/20 04:34 LDL Cholesterol Direct 107 mg/dL (50-130) 01/19/20 04:34 HDL Cholesterol 37 mg/dL (40-59) L 01/19/20 04:34 Cholesterol/HDL Ratio 4.45 % 01/19/20 04:34 Urine Color Yellow (Yellow) 01/18/20 16:17 Urine Turbidity Clear (Clear) 01/18/20 16:17 Urine pH 5.0 (5.0-7.0) 01/18/20 16:17 Ur Specific [place] 1.025 (1.003-1.030) 01/18/20 16:17 Urine Protein 30 mg/dl mg/dL (Negative) 01/18/20 16:17 Urine Glucose (UA) Neg mg/dL (Negative) 01/18/20 16:17 Urine Ketones 20 mg/dL (Negative) 01/18/20 16:17 Urine Blood Neg (Negative) 01/18/20 16:17 Urine Nitrite Neg (Negative) 01/18/20 16:17 Urine Bilirubin Neg (Negative) 01/18/20 16:17 Urine Urobilinogen 4.0 mg/dL (<2.0) 01/18/20 16:17 Ur Leukocyte Esterase Tr (Negative) 01/18/20 16:17 Urine WBC (Auto) 1.0 /HPF (0.0-6.0) 01/18/20 16:17 Urine RBC (Auto) 1.0 /HPF (0.0-6.0) 01/18/20 16:17 U Epithel Cells (Auto) < 1.0 /HPF (0-13.0) 01/18/20 16:17 Urine Bacteria (Auto) 1+ /HPF (Negative) 01/18/20 16:17 Urine Mucus 2+ /HPF 01/18/20 16:17 Coronavirus (PCR) Negative (Negative) 01/22/20 Unknown Microbiology: Microbiology 01/18/20 16:38 Peripheral/Venous Blood Culture - Final NO GROWTH AFTER 5 DAYS 01/18/20 16:38 Peripheral/Venous Blood Culture - Final NO GROWTH AFTER 5 DAYS - Diagnostic Impressions Diagnostic Impressions: Echocardiogram 01/18/20 18:39 Transthoracic Echocardiogram Indication: Stroke BP: 163/94 Conclusions *Global left ventricular systolic function is normal. *The estimated ejection fraction is 60-65%. *The right ventricular global systolic function is normal. *No atrial septal defected is demonstrated by color Doppler and agitated saline contrast. *Mild aortic cusp sclerosis is present. *There is no evidence of aortic regurgitation. *There is no evidence of mitral regurgitation. *There is trace tricuspid regurgitation. *The right ventricular systolic pressure is calculated at 14 mmHg. *There is no evidence of pulmonic regurgitation. Findings Left Ventricle: The left ventricular chamber size is normal. Mild concentric left ventricular hypertrophy is observed. Global left ventricular wall motion and contractility are within normal limits. Global left ventricular systolic function is normal. The estimated ejection fraction is 60-65%. Normal left ventricular diastolic filling is observed. Left Atrium: The left atrium is normal in size with no visual thrombus identified. Right Ventricle: The right ventricular cavity size is normal. The right ventricular global systolic function is normal. Right Atrium: The right atrium appears normal. The interatrial septum appears normal. No atrial septal defected is demonstrated by color Doppler and agitated saline contrast. Aortic Valve: The aortic valve is trileaflet. Mild aortic cusp sclerosis is present. There is no evidence of aortic regurgitation. There is no evidence of aortic stenosis. Mitral Valve: Mitral valve posterior leaflet calcification is visualized. There is no evidence of mitral regurgitation. There is no evidence of mitral stenosis. Tricuspid Valve: The tricuspid valve leaflets are normal. There is trace tricuspid regurgitation. The right ventricular systolic pressure is calculated at 14 mmHg. There is no tricuspid stenosis. Pulmonic Valve: The pulmonic valve appears normal. There is no evidence of pulmonic regurgitation. There is no pulmonic stenosis. Pericardium: There is no pericardial effusion. Aorta: There is no dilatation of the ascending aorta. There is no dilatation of the aortic arch. Measurements Chambers MM Name Value Normal Range Ao root diameter (MM) 2.9 cm (2 - 3.7) LA dimension (AP) MM 4.1 cm (1.9 - 4) LA:Ao ratio (MM) 1.41 ratio - AV cusp separation (MM) 1.7 cm (1.5 - 2.6) Chambers 2D Name Value Normal Range RVIDd (AP) 2D 2.65 cm (0.9 - 2.6) IVSd (2D) 1.21 cm (0.6 - 1.1) LVPWd (2D) 1.36 cm (0.6 - 1.1) IVS:LVPW ratio (2D) 0.89 ratio - LVIDd (2D) 3.88 cm (3.7 - 5.6) LVIDs (2D) 2.22 cm (2 - 3.8) LV FS (Teichholz) (2D) 42.8 % - LV FS (cube) (2D) 42.8 % - EF Teichholz (2D) 74.5 % - Ao root diameter (2D) 2.9 cm (2 - 3.7) LA dimension (AP) 2D 4 cm (1.9 - 4) LA:Ao ratio (2D) 1.38 ratio - Volumes/Mass Name Value Normal Range LA ESV SP 4CH (MOD) 50 ml - LA ESV SP 2CH (MOD) 79 ml - LA ESV BP (MOD) 64 ml - LA ESV BP (MOD) index 35.6 ml/m2 - Diastolic/Systolic Function Name Value Normal Range MV E-wave Vmax 0.64 m/sec - MV A-wave Vmax 1.27 m/sec - MV E:A ratio 0.5 ratio - LV septal e' Vmax 0.03 m/sec - LV lateral e' Vmax 0.05 m/sec - LV E:e' septal ratio 19.4 ratio - LV E:e' lateral ratio 12.9 ratio - Aortic Valve Name Value Normal Range AV VTI 34.3 cm - AV mean gradient 8 mmHg - LVOT diameter 2.1 cm - LVOT VTI 23.1 cm - LVOT mean gradient 4 mmHg - SV LVOT 80 ml - ZOË (continuity VTI) 2.33 cm2 - Mitral Valve Name Value Normal Range MV Vmax 1.36 m/sec - MV VTI 30.1 cm - MV peak gradient 7 mmHg - MV mean gradient 3 mmHg - MV PHT 125 msec - MVA (PHT) 1.76 cm2 - MVA (continuity VTI) 2.66 cm2 - Tricuspid Valve Name Value Normal Range TR Vmax 1.66 m/sec - TR peak gradient 11 mmHg - RAP 3 mmHg - RVSP 14 mmHg - Pulmonic Valve/Qp:Qs Name Value Normal Range PV Vmax 1.45 m/sec - PV VTI 28 cm - PV peak gradient 8 mmHg - PV mean gradient 5 mmHg - Bañuelos/IV: Voiding Method External Female Catheter IV Catheter Type [Left Forearm Peripheral IV ] IV Catheter Type [Left Hand] INT / Saline Lock IV Catheter Type [Right INT / Saline Lock Antecubital] Active Medications - Current Medications Current Medications: Generic Name Dose Route Start Last Admin Trade Name Freq PRN Reason Stop Dose Admin Acetaminophen 650 mg 01/18/20 18:37 Tylenol PO Q4H PRN Pain, Mild (1-3) Amlodipine Besylate 10 mg 01/20/20 12:00 01/24/20 09:42 Amlodipine PO 10 mg DAILY FLOWER Administration Aspirin 325 mg 01/18/20 20:00 01/24/20 09:42 Aspirin PO 325 mg QDAY FLOWER Administration Atorvastatin Calcium 40 mg 01/18/20 22:00 01/23/20 22:32 Lipitor PO 40 mg QHS FLOWER Administration Bisacodyl 10 mg 01/18/20 18:37 Dulcolax [place] QDAY PRN Constipation Dextrose 50 ml 01/18/20 20:05 D50w (25gm) Syringe IV Q30MIN PRN Hypoglycemia Protocol Diazepam 10 mg 01/18/20 22:00 01/23/20 22:24 Valium PO Not Given QHS FLOWER Heparin Sodium (Porcine) 5,000 unit 01/18/20 22:00 01/24/20 09:42 Heparin SUB-Q 5,000 unit Q12HR FLOWER Administration Hydrochlorothiazide 25 mg 01/19/20 10:00 01/24/20 09:42 Hctz PO 25 mg QDAY FLOWER Administration Hydrocortisone Acetate 25 mg 01/18/20 22:00 01/24/20 09:44 Anucort-Hc [place] 25 mg Q12HR FLOWER Administration Insulin Glargine 40 units 01/21/20 10:00 01/24/20 09:44 Lantus SUB-Q 40 units BID FLOWER Administration Insulin Human Lispro 0 unit 01/18/20 22:00 01/24/20 11:53 Humalog SUB-Q 8 unit ACHS FLOWER Administration Protocol Labetalol HCl 10 mg 01/19/20 14:23 01/20/20 04:36 Labetalol IV 10 mg Q4H PRN Administration HYPERTENSION Lisinopril 10 mg 01/22/20 10:00 01/24/20 09:41 Zestril PO 10 mg QDAY FLOWER Administration Magnesium Hydroxide 30 ml 01/18/20 18:37 01/22/20 16:25 Milk Of Magnesia PO 30 ml Q4H PRN Administration Constipation Metoclopramide HCl 10 mg 01/18/20 18:37 Reglan PO Q6H PRN Nausea And Vomiting Metoprolol Tartrate 5 mg 01/21/20 12:00 01/24/20 11:54 Metoprolol IV 5 mg Q6HR FLOWER Administration Ondansetron HCl 4 mg 01/18/20 18:37 Zofran IV Q8H PRN Nausea And Vomiting Pantoprazole Sodium 40 mg 01/19/20 10:00 01/24/20 09:41 Protonix PO 40 mg DAILY FLOWER Administration Promethazine HCl 25 mg 01/18/20 18:37 Phenergan [place] Q6H PRN Nausea And Vomiting Sodium Chloride 10 ml 01/18/20 18:37 01/24/20 00:35 Sodium Chloride Flush Syringe 10 Ml IV 10 ml PRN PRN Administration LINE FLUSH Nutrition/Malnutrition Assess - Dietary Evaluation Nutrition/Malnutrition Findings: Nutrition Notes Start: 01/21/20 11:25 Freq: Status: Active Protocol: Document 01/23/20 12:09 AL (Rec: 01/23/20 13:22 AL [id number]) Co-Sign 01/23/20 12:09 LM Nutrition Notes Initial or Follow up Reassessment Current Diagnosis Diabetes,Hypertension,Stroke, Hyperlipidemia Other Pertinent Diagnosis OA Current Diet Mech soft w/ chopped meats Labs/Tests POC Glu 293 Pertinent Medications Reviewed Height 5 ft 4 in Weight 72 kg [place] Body Weight (kg) 54.54 BMI 27.2 Weight change and time frame Wt change noted Weight Status Overweight Subjective/Other Information F/U for intakes and ONS needs. RN reported pt ate over 75% of her breakfast. RN reports pt is also drinking liquids well. RN reports pt's is feeding her and she is tolerating diet well. Percent of energy/protein needs met: 91%/100% Burn Absent Trauma Absent Difficulty In Swallowing Minimum of two criteria No physical signs of malnutrition #1 Nutrition Diagnosis Predicted suboptimal energy intake Diagnosis Progress(for reassessment Resolved documentation) Is patient on ventilator? No Is Patient Ambulatory and/or Out of Bed No REE-([place]-St. Jeor-confined to bed) 1458.144 Calculation Used for Recommendations [place] Jeor Additional Notes Protein: 72-86g (1-1.2g/kg) Fluid: 1ml/kcal Nutrition Intervention Change Diet Order: Continue Goal #1 Meet at least 75% of energy and protein needs [facility] Revisit per MD consult or patient Sign Off request:
[2020-01-24] MEDS: diazePAM 5 MG TAB PO SCH (22:30)
[2020-01-25] MEDS: METOPROLOL TARTRATE 5 MG/5 ML INJ IV SCH ×4 (00:47→17:10)
[2020-01-25] MEDS: INSULIN LISPRO 100 UNIT/ML VIAL 3 mL SUB-Q SCH ×4 (08:43→22:17)
[2020-01-25] MEDS: amLODIPine 10 MG TAB PO SCH (09:24)
[2020-01-25] MEDS: HYDROCORTISONE 25 MG RECTAL SUPP PR SCH ×2 (09:24→22:17)
[2020-01-25] MEDS: LISINOPRIL 10 MG TAB PO SCH (09:25)
[2020-01-25] MEDS: ASPIRIN 325 MG TAB PO SCH (09:25)
[2020-01-25] MEDS: hydroCHLOROthiazide 25 MG TAB PO SCH (09:25)
[2020-01-25] MEDS: PANTOPRAZOLE 40 MG TAB PO SCH (09:25)
[2020-01-25] MEDS: HEPARIN 5,000 UNIT/1 ML VIAL SUB-Q SCH ×2 (09:25→22:17)
[2020-01-25] MEDS: INSULIN GLARGINE 100 UNITS/ML SUB-Q SCH ×2 (09:25→22:17)
--- NOTE | 2020-01-25 12:34 | Progress Note ---
Assessment and Plan Assessment and plan: Assessment and plan: 74 YO Female with HTN,HLD, DM, OA presents to the emergency department for evaluation. Patient is non-Barbadian speaking and unable to provide history. Patient history taken via welt drawer via insurance writer. As per interpreterthe patient reports that she was in her usual state of health at bedtime around 2200 hrs. Patient awoke from sleep this morning and was found to have right leg weakness. Patient was unable to move her leg and unable to ambulate due to loss of sensation. EMS was notified and upon arrival the patient was found to be in distress with a neurologic deficit. A code stroke was called and the patient was transported to [facility] for further care and eval uation of the aforementioned symptoms. Patient seen and evaluated in the emergency department. Lab and imaging studies reviewed. Patient found to have clinical symptoms consistent with CVA. Patient deemed outside the therapeutic window for TPA. Patient placed in observation status and admitted to medical floor and initiated on stroke protocol. Prior admission on 07/18/2017 reviewed. All medication listed at time of admission has been reconciled. Advanced care planning conducted in ED. 01/20: Patient two nights ago had sudden change from previously noted right sided weakness and had expressive aphasia, Repeat imaging studies confirmed CVA, Patient is beginning to show some improvement, will continue to improve BP. Family notified at bedside. Continue Rehab therapy and Monitor BP. CT of head done today-showed Subacute ischemic changes are seen in the left anterior cerebral artery territory 01/21. MRI brain showed left subacute infarct. Discussed with at bedside. She will need acute rehab. CM aware 01/22. Awaiting insurance auth. No change in clinical condition 01/23. Seen getting PT. She ate all her breakfast today as per . 01/24. Still pending placement. (1) CVA (cerebral vascular accident) Current Visit: Yes Status: Acute Plan to address problem: CVA protocol: 01/18/20-CT head- showed no acute finding 01/20/20-showed Subacute ischemic changes are seen in the left anterior cerebral artery territory neuro check every 2 hrs seizure precautions, antiplatelet therapy with ASA, statin therapy ECHO and carotid Doppler-results reviewed. MRI brain shows subacute left cerebral infarct PT -rec rehab. Awaiting placement (2) HTN (hypertension) Current Visit: Yes Status: Acute Qualifiers: Hypertension type: essential hypertension Qualified Code(s): I10 - Essential (primary) hypertension Plan to address problem: Monitor blood pressure closely resume home bp med amlodipine-will adjust bp med if needed (3) Hyperlipidemia Current Visit: Yes Status: Acute Qualifiers: Hyperlipidemia type: mixed hyperlipidemia Qualified Code(s): E78.2 - Mixed hyperlipidemia Plan to address problem: continue statin therapy. (4) Diabetes with hyperglycemia Current Visit: Yes Status: Acute Plan to address problem: Monitor blood sugar with SSI Continue lantus Insulin Discussed low carbohydrate diet (5) Osteoarthritis Current Visit: Yes Status: Acute Plan to address problem: Pain control, supportive care. X-ray femur and pelvis-no acute finding Chest x-ray-no acute finding (6) DVT prophylaxis Current Visit: Yes Status: Acute Plan to address problem: SCD to bilateral lower extremities while in bed, prophylactic anticoagulation- heparin. (7) Advance care planning Current Visit: Yes Status: Acute Will d/c pt when placement to SNF confirmed History Interval history: Patient seen and examined at bedside this morning. She does not have good appetite this morning. I offered some encouragement. Still awaiting placement Hospitalist Physical - Constitutional Vitals: Temp Pulse Resp BP Pulse Ox 97.7 F 84 18 143/79 90 01/25/20 08:24 01/25/20 08:24 01/25/20 08:24 01/25/20 08:24 01/25/20 08:24 General appearance: Present: no acute distress - EENT Eyes: Present: PERRL - Respiratory Respiratory: bilateral: CTA - Cardiovascular Heart Sounds: Present: S1 & S2 - Extremities Extremities: No edema - Abdominal General gastrointestinal: soft, non-tender, non-distended, normal bowel sounds - Neurologic Neurologic: focal deficits (RUE and RLE weakness) HEART Score - HEART Score Troponin: Troponin T < 0.010 ng/mL (0.00-0.029) 01/18/20 15:30 Results - Labs CBC & Chem 7: 01/20/20 04:36 01/20/20 04:36 Labs: Laboratory Last Values WBC 10.5 K/mm3 (4.5-11.0) 01/20/20 04:36 RBC 4.41 M/mm3 (3.65-5.03) 01/20/20 04:36 Hgb 14.6 gm/dl (10.1-14.3) H 01/20/20 04:36 Hct 42.6 % (30.3-42.9) 01/20/20 04:36 MCV 97 fl (79-97) 01/20/20 04:36 MCH 33 pg (28-32) H 01/20/20 04:36 MCHC 34 % (30-34) 01/20/20 04:36 RDW 12.9 % (13.2-15.2) L 01/20/20 04:36 Plt Count 215 K/mm3 (140-440) 01/20/20 04:36 Lymph % (Auto) 25.7 % (13.4-35.0) 01/20/20 04:36 Nye % (Auto) 10.0 % (0.0-7.3) H 01/20/20 04:36 Eos % (Auto) 1.8 % (0.0-4.3) 01/20/20 04:36 Baso % (Auto) 0.2 % (0.0-1.8) 01/20/20 04:36 Lymph # 2.7 K/mm3 (1.2-5.4) 01/20/20 04:36 Nye # 1.1 K/mm3 (0.0-0.8) H 01/20/20 04:36 Eos # 0.2 K/mm3 (0.0-0.4) 01/20/20 04:36 Baso # 0.0 K/mm3 (0.0-0.1) 01/20/20 04:36 Seg Neutrophils % 62.3 % (40.0-70.0) 01/20/20 04:36 Seg Neutrophils # 6.5 K/mm3 (1.8-7.7) 01/20/20 04:36 PT 14.0 Sec. (12.2-14.9) 01/18/20 13:45 INR 1.06 (0.87-1.13) 01/18/20 13:45 APTT 26.0 Sec. (24.2-36.6) 01/18/20 13:45 ABG pH 7.423 pH Units (7.350-7.450) 01/20/20 10:15 ABG pCO2 42.0 mm Hg 01/20/20 10:15 ABG pO2 128.1 mm Hg (80.0-90.0) H 01/20/20 10:15 ABG HCO3 26.8 mmol/L (20.0-26.0) H 01/20/20 10:15 ABG O2 Saturation 98.5 % (95.0-99.0) 01/20/20 10:15 ABG O2 Content 20.4 (0.0-44) 01/20/20 10:15 ABG Base Excess 2.1 mmol/L (-2.0-3.0) 01/20/20 10:15 ABG Hemoglobin 14.9 gm/dl (12.0-16.0) 01/20/20 10:15 ABG Carboxyhemoglobin 1.5 % (0.0-5.0) 01/20/20 10:15 ABG Methemoglobin 0.5 % (0.0-1.5) 01/20/20 10:15 Oxyhemoglobin 96.5 % (95.0-99.0) 01/20/20 10:15 FiO2 21 % 01/20/20 10:15 Sodium 136 mmol/L (137-145) L 01/20/20 04:36 Potassium 3.8 mmol/L (3.6-5.0) 01/20/20 04:36 Chloride 96.0 mmol/L (98-107) L 01/20/20 04:36 Carbon Dioxide 28 mmol/L (22-30) 01/20/20 04:36 Anion Gap 16 mmol/L 01/20/20 04:36 BUN 22 mg/dL (7-17) H 01/20/20 04:36 Creatinine 0.8 mg/dL (0.6-1.2) 01/20/20 04:36 Estimated GFR > 60 ml/min 01/20/20 04:36 BUN/Creatinine Ratio 28 % 01/20/20 04:36 Glucose 351 mg/dL (65-100) H 01/20/20 04:36 POC Glucose 196 (70-105) H 01/25/20 11:49 Hemoglobin A1c 8.4 % (4-6) H 01/20/20 04:36 Lactic Acid 1.30 mmol/L (0.7-2.0) 01/18/20 16:38 Calcium 8.9 mg/dL (8.4-10.2) 01/20/20 04:36 Total Bilirubin 0.50 mg/dL (0.1-1.2) 01/18/20 13:45 AST 25 units/L (5-40) 01/18/20 13:45 ALT 15 units/L (7-56) 01/18/20 13:45 Alkaline Phosphatase 84 units/L (35-129) 01/18/20 13:45 Troponin T < 0.010 ng/mL (0.00-0.029) 01/18/20 15:30 NT-Pro-B Natriuret Pep 362.7 pg/mL (0-900) 01/18/20 13:45 Total Protein 6.6 g/dL (6.3-8.2) 01/18/20 13:45 Albumin 4.0 g/dL (3.9-5) 01/18/20 13:45 Albumin/Globulin Ratio 1.5 % 01/18/20 13:45 Triglycerides 169 mg/dL (2-149) H 01/19/20 04:34 Cholesterol 165 mg/dL (50-199) 01/19/20 04:34 LDL Cholesterol Direct 107 mg/dL (50-130) 01/19/20 04:34 HDL Cholesterol 37 mg/dL (40-59) L 01/19/20 04:34 Cholesterol/HDL Ratio 4.45 % 01/19/20 04:34 Urine Color Yellow (Yellow) 01/18/20 16:17 Urine Turbidity Clear (Clear) 01/18/20 16:17 Urine pH 5.0 (5.0-7.0) 01/18/20 16:17 Ur Specific [place] 1.025 (1.003-1.030) 01/18/20 16:17 Urine Protein 30 mg/dl mg/dL (Negative) 01/18/20 16:17 Urine Glucose (UA) Neg mg/dL (Negative) 01/18/20 16:17 Urine Ketones 20 mg/dL (Negative) 01/18/20 16:17 Urine Blood Neg (Negative) 01/18/20 16:17 Urine Nitrite Neg (Negative) 01/18/20 16:17 Urine Bilirubin Neg (Negative) 01/18/20 16:17 Urine Urobilinogen 4.0 mg/dL (<2.0) 01/18/20 16:17 Ur Leukocyte Esterase Tr (Negative) 01/18/20 16:17 Urine WBC (Auto) 1.0 /HPF (0.0-6.0) 01/18/20 16:17 Urine RBC (Auto) 1.0 /HPF (0.0-6.0) 01/18/20 16:17 U Epithel Cells (Auto) < 1.0 /HPF (0-13.0) 01/18/20 16:17 Urine Bacteria (Auto) 1+ /HPF (Negative) 01/18/20 16:17 Urine Mucus 2+ /HPF 01/18/20 16:17 Coronavirus (PCR) Negative (Negative) 01/22/20 Unknown - Diagnostic Impressions Diagnostic Impressions: Echocardiogram 01/18/20 18:39 Transthoracic Echocardiogram Indication: Stroke BP: 163/94 Conclusions *Global left ventricular systolic function is normal. *The estimated ejection fraction is 60-65%. *The right ventricular global systolic function is normal. *No atrial septal defected is demonstrated by color Doppler and agitated saline contrast. *Mild aortic cusp sclerosis is present. *There is no evidence of aortic regurgitation. *There is no evidence of mitral regurgitation. *There is trace tricuspid regurgitation. *The right ventricular systolic pressure is calculated at 14 mmHg. *There is no evidence of pulmonic regurgitation. Findings Left Ventricle: The left ventricular chamber size is normal. Mild concentric left ventricular hypertrophy is observed. Global left ventricular wall motion and contractility are within normal limits. Global left ventricular systolic function is normal. The estimated ejection fraction is 60-65%. Normal left ventricular diastolic filling is observed. Left Atrium: The left atrium is normal in size with no visual thrombus identified. Right Ventricle: The right ventricular cavity size is normal. The right ventricular global systolic function is normal. Right Atrium: The right atrium appears normal. The interatrial septum appears normal. No atrial septal defected is demonstrated by color Doppler and agitated saline contrast. Aortic Valve: The aortic valve is trileaflet. Mild aortic cusp sclerosis is present. There is no evidence of aortic regurgitation. There is no evidence of aortic stenosis. Mitral Valve: Mitral valve posterior leaflet calcification is visualized. There is no evidence of mitral regurgitation. There is no evidence of mitral stenosis. Tricuspid Valve: The tricuspid valve leaflets are normal. There is trace tricuspid regurgitation. The right ventricular systolic pressure is calculated at 14 mmHg. There is no tricuspid stenosis. Pulmonic Valve: The pulmonic valve appears normal. There is no evidence of pulmonic regurgitation. There is no pulmonic stenosis. Pericardium: There is no pericardial effusion. Aorta: There is no dilatation of the ascending aorta. There is no dilatation of the aortic arch. Measurements Chambers MM Name Value Normal Range Ao root diameter (MM) 2.9 cm (2 - 3.7) LA dimension (AP) MM 4.1 cm (1.9 - 4) LA:Ao ratio (MM) 1.41 ratio - AV cusp separation (MM) 1.7 cm (1.5 - 2.6) Chambers 2D Name Value Normal Range RVIDd (AP) 2D 2.65 cm (0.9 - 2.6) IVSd (2D) 1.21 cm (0.6 - 1.1) LVPWd (2D) 1.36 cm (0.6 - 1.1) IVS:LVPW ratio (2D) 0.89 ratio - LVIDd (2D) 3.88 cm (3.7 - 5.6) LVIDs (2D) 2.22 cm (2 - 3.8) LV FS (Teichholz) (2D) 42.8 % - LV FS (cube) (2D) 42.8 % - EF Teichholz (2D) 74.5 % - Ao root diameter (2D) 2.9 cm (2 - 3.7) LA dimension (AP) 2D 4 cm (1.9 - 4) LA:Ao ratio (2D) 1.38 ratio - Volumes/Mass Name Value Normal Range LA ESV SP 4CH (MOD) 50 ml - LA ESV SP 2CH (MOD) 79 ml - LA ESV BP (MOD) 64 ml - LA ESV BP (MOD) index 35.6 ml/m2 - Diastolic/Systolic Function Name Value Normal Range MV E-wave Vmax 0.64 m/sec - MV A-wave Vmax 1.27 m/sec - MV E:A ratio 0.5 ratio - LV septal e' Vmax 0.03 m/sec - LV lateral e' Vmax 0.05 m/sec - LV E:e' septal ratio 19.4 ratio - LV E:e' lateral ratio 12.9 ratio - Aortic Valve Name Value Normal Range AV VTI 34.3 cm - AV mean gradient 8 mmHg - LVOT diameter 2.1 cm - LVOT VTI 23.1 cm - LVOT mean gradient 4 mmHg - SV LVOT 80 ml - ZOË (continuity VTI) 2.33 cm2 - Mitral Valve Name Value Normal Range MV Vmax 1.36 m/sec - MV VTI 30.1 cm - MV peak gradient 7 mmHg - MV mean gradient 3 mmHg - MV PHT 125 msec - MVA (PHT) 1.76 cm2 - MVA (continuity VTI) 2.66 cm2 - Tricuspid Valve Name Value Normal Range TR Vmax 1.66 m/sec - TR peak gradient 11 mmHg - RAP 3 mmHg - RVSP 14 mmHg - Pulmonic Valve/Qp:Qs Name Value Normal Range PV Vmax 1.45 m/sec - PV VTI 28 cm - PV peak gradient 8 mmHg - PV mean gradient 5 mmHg - Bañuelos/IV: Voiding Method External Female Catheter IV Catheter Type [Left Forearm Peripheral IV ] IV Catheter Type [Left Hand] INT / Saline Lock IV Catheter Type [Right INT / Saline Lock Antecubital] Active Medications - Current Medications Current Medications: Generic Name Dose Route Start Last Admin Trade Name Freq PRN Reason Stop Dose Admin Acetaminophen 650 mg 01/18/20 18:37 Tylenol PO Q4H PRN Pain, Mild (1-3) Amlodipine Besylate 10 mg 01/20/20 12:00 01/25/20 09:24 Amlodipine PO 10 mg DAILY FLOWER Administration Aspirin 325 mg 01/18/20 20:00 01/25/20 09:25 Aspirin PO 325 mg QDAY FLOWER Administration Atorvastatin Calcium 40 mg 01/18/20 22:00 01/24/20 21:58 Lipitor PO 40 mg QHS FLOWER Administration Bisacodyl 10 mg 01/18/20 18:37 Dulcolax MD QDAY PRN Constipation Dextrose 50 ml 01/18/20 20:05 D50w (25gm) Syringe IV Q30MIN PRN Hypoglycemia Protocol Diazepam 10 mg 01/18/20 22:00 01/24/20 22:30 Valium PO Not Given [facility] Heparin Sodium (Porcine) 5,000 unit 01/18/20 22:00 01/25/20 09:25 Heparin SUB-Q 5,000 unit Q12HR FLOWER Administration Hydrochlorothiazide 25 mg 01/19/20 10:00 01/25/20 09:25 Hctz PO 25 mg QDAY FLOWER Administration Hydrocortisone Acetate 25 mg 01/18/20 22:00 01/25/20 09:24 Anucort-Hc MD 25 mg Q12HR FLOWER Administration Insulin Glargine 40 units 01/21/20 10:00 01/25/20 09:25 Lantus SUB-Q 40 units BID FLOWER Administration Insulin Human Lispro 0 unit 01/18/20 22:00 01/25/20 12:00 Humalog SUB-Q 2 unit ACHS FLOWER Administration Protocol Labetalol HCl 10 mg 01/19/20 14:23 01/20/20 04:36 Labetalol IV 10 mg Q4H PRN Administration HYPERTENSION Lisinopril 10 mg 01/22/20 10:00 01/25/20 09:25 Zestril PO 10 mg QDAY FLOWER Administration Magnesium Hydroxide 30 ml 01/18/20 18:37 01/22/20 16:25 Milk Of Magnesia PO 30 ml Q4H PRN Administration Constipation Metoclopramide HCl 10 mg 01/18/20 18:37 Reglan PO Q6H PRN Nausea And Vomiting Metoprolol Tartrate 5 mg 01/21/20 12:00 01/25/20 12:00 Metoprolol IV 5 mg Q6HR FLOWER Administration Ondansetron HCl 4 mg 01/18/20 18:37 Zofran IV Q8H PRN Nausea And Vomiting Pantoprazole Sodium 40 mg 01/19/20 10:00 01/25/20 09:25 Protonix PO 40 mg DAILY FLOWER Administration Promethazine HCl 25 mg 01/18/20 18:37 Phenergan MD Q6H PRN Nausea And Vomiting Sodium Chloride 10 ml 01/18/20 18:37 01/24/20 00:35 Sodium Chloride Flush Syringe 10 Ml IV 10 ml PRN PRN Administration LINE FLUSH Nutrition/Malnutrition Assess - Dietary Evaluation Nutrition/Malnutrition Findings: Nutrition Notes Start: 01/21/20 11:25 Freq: Status: Active Protocol: Document 01/23/20 12:09 AL (Rec: 01/23/20 13:22 AL [id number]) Co-Sign 01/23/20 12:09 LM Nutrition Notes Initial or Follow up Reassessment Current Diagnosis Diabetes,Hypertension,Stroke, Hyperlipidemia Other Pertinent Diagnosis OA Current Diet Mech soft w/ chopped meats Labs/Tests POC Glu 293 Pertinent Medications Reviewed Height 5 ft 4 in Weight 72 kg [place] Body Weight (kg) 54.54 BMI 27.2 Weight change and time frame Wt change noted Weight Status Overweight Subjective/Other Information F/U for intakes and ONS needs. RN reported pt ate over 75% of her breakfast. RN reports pt is also drinking liquids well. RN reports pt's is feeding her and she is tolerating diet well. Percent of energy/protein needs met: 91%/100% Burn Absent Trauma Absent Difficulty In Swallowing Minimum of two criteria No physical signs of malnutrition #1 Nutrition Diagnosis Predicted suboptimal energy intake Diagnosis Progress(for reassessment Resolved documentation) Is patient on ventilator? No Is Patient Ambulatory and/or Out of Bed No REE-([facility]-confined to bed) 1458.144 Calculation Used for Recommendations [facility] Additional Notes Protein: 72-86g (1-1.2g/kg) Fluid: 1ml/kcal Nutrition Intervention Change Diet Order: Continue Goal #1 Meet at least 75% of energy and protein needs Anticipated Discharge Needs: Mech soft/consistent CHO/ cardiac Revisit per MD consult or patient Sign Off request:
[2020-01-25] MEDS: diazePAM 5 MG TAB PO SCH (23:12)
[2020-01-26] MEDS: METOPROLOL TARTRATE 5 MG/5 ML INJ IV SCH ×4 (00:08→18:01)
[2020-01-26] MEDS: INSULIN LISPRO 100 UNIT/ML VIAL 3 mL SUB-Q SCH ×4 (08:58→22:34)
[2020-01-26] MEDS: ASPIRIN 325 MG TAB PO SCH (10:29)
[2020-01-26] MEDS: PANTOPRAZOLE 40 MG TAB PO SCH (10:29)
[2020-01-26] MEDS: hydroCHLOROthiazide 25 MG TAB PO SCH (10:29)
[2020-01-26] MEDS: LISINOPRIL 10 MG TAB PO SCH (10:30)
[2020-01-26] MEDS: HEPARIN 5,000 UNIT/1 ML VIAL SUB-Q SCH ×2 (10:30→22:34)
[2020-01-26] MEDS: amLODIPine 10 MG TAB PO SCH (10:30)
[2020-01-26] MEDS: HYDROCORTISONE 25 MG RECTAL SUPP PR SCH ×2 (10:31→22:34)
[2020-01-26] MEDS: INSULIN GLARGINE 100 UNITS/ML SUB-Q SCH ×2 (10:32→22:34)
--- NOTE | 2020-01-26 11:20 | Progress Note ---
Assessment and Plan Assessment and plan: Assessment and plan: 74 YO Female with HTN,HLD, DM, OA presents to the emergency department for evaluation. Patient is non-Guyanese speaking and unable to provide history. Patient history taken via desk pen set assembler via hourly sign language interpreter. As per interpreterthe patient reports that she was in her usual state of health at bedtime around 2200 hrs. Patient awoke from sleep this morning and was found to have right leg weakness. Patient was unable to move her leg and unable to ambulate due to loss of sensation. EMS was notified and upon arrival the patient was found to be in distress with a neurologic deficit. A code stroke was called and the patient was transported to [facility] for further care and eval uation of the aforementioned symptoms. Patient seen and evaluated in the emergency department. Lab and imaging studies reviewed. Patient found to have clinical symptoms consistent with CVA. Patient deemed outside the therapeutic window for TPA. Patient placed in observation status and admitted to medical floor and initiated on stroke protocol. Prior admission on 07/18/2017 reviewed. All medication listed at time of admission has been reconciled. Advanced care planning conducted in ED. 01/20: Patient two nights ago had sudden change from previously noted right sided weakness and had expressive aphasia, Repeat imaging studies confirmed CVA, Patient is beginning to show some improvement, will continue to improve BP. Family notified at bedside. Continue Rehab therapy and Monitor BP. CT of head done today-showed Subacute ischemic changes are seen in the left anterior cerebral artery territory 01/21. MRI brain showed left subacute infarct. Discussed with at bedside. She will need acute rehab. CM aware 01/22. Awaiting insurance auth. No change in clinical condition 01/23. Seen getting PT. She ate all her breakfast today as per . 01/24. Still pending placement. 01/25. Discussed with and he wants to take patient home if possible. he needs to get a bed and other home equipment for her. (1) CVA (cerebral vascular accident) Current Visit: Yes Status: Acute Plan to address problem: CVA protocol: 01/18/20-CT head- showed no acute finding 01/20/20-showed Subacute ischemic changes are seen in the left anterior cerebral artery territory neuro check every 2 hrs seizure precautions, antiplatelet therapy with ASA, statin therapy ECHO and carotid Doppler-results reviewed. MRI brain shows subacute left cerebral infarct PT -rec rehab. May be going home with PT instead (2) HTN (hypertension) Current Visit: Yes Status: Acute Qualifiers: Hypertension type: essential hypertension Qualified Code(s): I10 - Essential (primary) hypertension Plan to address problem: Monitor blood pressure closely resume home bp med amlodipine-will adjust bp med if needed (3) Hyperlipidemia Current Visit: Yes Status: Acute Qualifiers: Hyperlipidemia type: mixed hyperlipidemia Qualified Code(s): E78.2 - Mixed hyperlipidemia Plan to address problem: continue statin therapy. (4) Diabetes with hyperglycemia Current Visit: Yes Status: Acute Plan to address problem: Monitor blood sugar with SSI Continue lantus Insulin Discussed low carbohydrate diet (5) Osteoarthritis Current Visit: Yes Status: Acute Plan to address problem: Pain control, supportive care. X-ray femur and pelvis-no acute finding Chest x-ray-no acute finding (6) DVT prophylaxis Current Visit: Yes Status: Acute Plan to address problem: SCD to bilateral lower extremities while in bed, prophylactic anticoagulation- heparin. (7) Advance care planning Current Visit: Yes Status: Acute Will d/c pt when placement to SNF confirmed History Interval history: Patient seen and examined at bedside this morning. She does not have good appetite this morning. I offered some encouragement. Still awaiting placement Hospitalist Physical - Constitutional Vitals: Temp Pulse Resp BP Pulse Ox 98.0 F 83 20 130/83 90 01/26/20 07:45 01/26/20 07:45 01/26/20 07:45 01/26/20 07:45 01/26/20 07:45 General appearance: Present: no acute distress - EENT Eyes: Present: PERRL - Respiratory Respiratory: bilateral: CTA - Cardiovascular Heart Sounds: Present: S1 & S2 - Extremities Extremities: No edema - Abdominal General gastrointestinal: soft, non-tender, non-distended, normal bowel sounds - Neurologic Neurologic: focal deficits (right UE and LE) HEART Score - HEART Score Troponin: Troponin T < 0.010 ng/mL (0.00-0.029) 01/18/20 15:30 Results - Labs CBC & Chem 7: 01/20/20 04:36 01/20/20 04:36 Labs: Laboratory Last Values WBC 10.5 K/mm3 (4.5-11.0) 01/20/20 04:36 RBC 4.41 M/mm3 (3.65-5.03) 01/20/20 04:36 Hgb 14.6 gm/dl (10.1-14.3) H 01/20/20 04:36 Hct 42.6 % (30.3-42.9) 01/20/20 04:36 MCV 97 fl (79-97) 01/20/20 04:36 MCH 33 pg (28-32) H 01/20/20 04:36 MCHC 34 % (30-34) 01/20/20 04:36 RDW 12.9 % (13.2-15.2) L 01/20/20 04:36 Plt Count 215 K/mm3 (140-440) 01/20/20 04:36 Lymph % (Auto) 25.7 % (13.4-35.0) 01/20/20 04:36 [place] % (Auto) 10.0 % (0.0-7.3) H 01/20/20 04:36 Eos % (Auto) 1.8 % (0.0-4.3) 01/20/20 04:36 Baso % (Auto) 0.2 % (0.0-1.8) 01/20/20 04:36 Lymph # 2.7 K/mm3 (1.2-5.4) 01/20/20 04:36 [place] # 1.1 K/mm3 (0.0-0.8) H 01/20/20 04:36 Eos # 0.2 K/mm3 (0.0-0.4) 01/20/20 04:36 Baso # 0.0 K/mm3 (0.0-0.1) 01/20/20 04:36 Seg Neutrophils % 62.3 % (40.0-70.0) 01/20/20 04:36 Seg Neutrophils # 6.5 K/mm3 (1.8-7.7) 01/20/20 04:36 PT 14.0 Sec. (12.2-14.9) 01/18/20 13:45 INR 1.06 (0.87-1.13) 01/18/20 13:45 APTT 26.0 Sec. (24.2-36.6) 01/18/20 13:45 ABG pH 7.423 pH Units (7.350-7.450) 01/20/20 10:15 ABG pCO2 42.0 mm Hg 01/20/20 10:15 ABG pO2 128.1 mm Hg (80.0-90.0) H 01/20/20 10:15 ABG HCO3 26.8 mmol/L (20.0-26.0) H 01/20/20 10:15 ABG O2 Saturation 98.5 % (95.0-99.0) 01/20/20 10:15 ABG O2 Content 20.4 (0.0-44) 01/20/20 10:15 ABG Base Excess 2.1 mmol/L (-2.0-3.0) 01/20/20 10:15 ABG Hemoglobin 14.9 gm/dl (12.0-16.0) 01/20/20 10:15 ABG Carboxyhemoglobin 1.5 % (0.0-5.0) 01/20/20 10:15 ABG Methemoglobin 0.5 % (0.0-1.5) 01/20/20 10:15 Oxyhemoglobin 96.5 % (95.0-99.0) 01/20/20 10:15 FiO2 21 % 01/20/20 10:15 Sodium 136 mmol/L (137-145) L 01/20/20 04:36 Potassium 3.8 mmol/L (3.6-5.0) 01/20/20 04:36 Chloride 96.0 mmol/L (98-107) L 01/20/20 04:36 Carbon Dioxide 28 mmol/L (22-30) 01/20/20 04:36 Anion Gap 16 mmol/L 01/20/20 04:36 BUN 22 mg/dL (7-17) H 01/20/20 04:36 Creatinine 0.8 mg/dL (0.6-1.2) 01/20/20 04:36 Estimated GFR > 60 ml/min 01/20/20 04:36 BUN/Creatinine Ratio 28 % 01/20/20 04:36 Glucose 351 mg/dL (65-100) H 01/20/20 04:36 POC Glucose 184 (70-105) H 01/26/20 08:00 Hemoglobin A1c 8.4 % (4-6) H 01/20/20 04:36 Lactic Acid 1.30 mmol/L (0.7-2.0) 01/18/20 16:38 Calcium 8.9 mg/dL (8.4-10.2) 01/20/20 04:36 Total Bilirubin 0.50 mg/dL (0.1-1.2) 01/18/20 13:45 AST 25 units/L (5-40) 01/18/20 13:45 ALT 15 units/L (7-56) 01/18/20 13:45 Alkaline Phosphatase 84 units/L (35-129) 01/18/20 13:45 Troponin T < 0.010 ng/mL (0.00-0.029) 01/18/20 15:30 NT-Pro-B Natriuret Pep 362.7 pg/mL (0-900) 01/18/20 13:45 Total Protein 6.6 g/dL (6.3-8.2) 01/18/20 13:45 Albumin 4.0 g/dL (3.9-5) 01/18/20 13:45 Albumin/Globulin Ratio 1.5 % 01/18/20 13:45 Triglycerides 169 mg/dL (2-149) H 01/19/20 04:34 Cholesterol 165 mg/dL (50-199) 01/19/20 04:34 LDL Cholesterol Direct 107 mg/dL (50-130) 01/19/20 04:34 HDL Cholesterol 37 mg/dL (40-59) L 01/19/20 04:34 Cholesterol/HDL Ratio 4.45 % 01/19/20 04:34 Urine Color Yellow (Yellow) 01/18/20 16:17 Urine Turbidity Clear (Clear) 01/18/20 16:17 Urine pH 5.0 (5.0-7.0) 01/18/20 16:17 Ur Specific [place] 1.025 (1.003-1.030) 01/18/20 16:17 Urine Protein 30 mg/dl mg/dL (Negative) 01/18/20 16:17 Urine Glucose (UA) Neg mg/dL (Negative) 01/18/20 16:17 Urine Ketones 20 mg/dL (Negative) 01/18/20 16:17 Urine Blood Neg (Negative) 01/18/20 16:17 Urine Nitrite Neg (Negative) 01/18/20 16:17 Urine Bilirubin Neg (Negative) 01/18/20 16:17 Urine Urobilinogen 4.0 mg/dL (<2.0) 01/18/20 16:17 Ur Leukocyte Esterase Tr (Negative) 01/18/20 16:17 Urine WBC (Auto) 1.0 /HPF (0.0-6.0) 01/18/20 16:17 Urine RBC (Auto) 1.0 /HPF (0.0-6.0) 01/18/20 16:17 U Epithel Cells (Auto) < 1.0 /HPF (0-13.0) 01/18/20 16:17 Urine Bacteria (Auto) 1+ /HPF (Negative) 01/18/20 16:17 Urine Mucus 2+ /HPF 01/18/20 16:17 Coronavirus (PCR) Negative (Negative) 01/22/20 Unknown - Diagnostic Impressions Diagnostic Impressions: Echocardiogram 01/18/20 18:39 Transthoracic Echocardiogram Indication: Stroke BP: 163/94 Conclusions *Global left ventricular systolic function is normal. *The estimated ejection fraction is 60-65%. *The right ventricular global systolic function is normal. *No atrial septal defected is demonstrated by color Doppler and agitated saline contrast. *Mild aortic cusp sclerosis is present. *There is no evidence of aortic regurgitation. *There is no evidence of mitral regurgitation. *There is trace tricuspid regurgitation. *The right ventricular systolic pressure is calculated at 14 mmHg. *There is no evidence of pulmonic regurgitation. Findings Left Ventricle: The left ventricular chamber size is normal. Mild concentric left ventricular hypertrophy is observed. Global left ventricular wall motion and contractility are within normal limits. Global left ventricular systolic function is normal. The estimated ejection fraction is 60-65%. Normal left ventricular diastolic filling is observed. Left Atrium: The left atrium is normal in size with no visual thrombus identified. Right Ventricle: The right ventricular cavity size is normal. The right ventricular global systolic function is normal. Right Atrium: The right atrium appears normal. The interatrial septum appears normal. No atrial septal defected is demonstrated by color Doppler and agitated saline contrast. Aortic Valve: The aortic valve is trileaflet. Mild aortic cusp sclerosis is present. There is no evidence of aortic regurgitation. There is no evidence of aortic stenosis. Mitral Valve: Mitral valve posterior leaflet calcification is visualized. There is no evidence of mitral regurgitation. There is no evidence of mitral stenosis. Tricuspid Valve: The tricuspid valve leaflets are normal. There is trace tricuspid regurgitation. The right ventricular systolic pressure is calculated at 14 mmHg. There is no tricuspid stenosis. Pulmonic Valve: The pulmonic valve appears normal. There is no evidence of pulmonic regurgitation. There is no pulmonic stenosis. Pericardium: There is no pericardial effusion. Aorta: There is no dilatation of the ascending aorta. There is no dilatation of the aortic arch. Measurements Chambers MM Name Value Normal Range Ao root diameter (MM) 2.9 cm (2 - 3.7) LA dimension (AP) MM 4.1 cm (1.9 - 4) LA:Ao ratio (MM) 1.41 ratio - AV cusp separation (MM) 1.7 cm (1.5 - 2.6) Chambers 2D Name Value Normal Range RVIDd (AP) 2D 2.65 cm (0.9 - 2.6) IVSd (2D) 1.21 cm (0.6 - 1.1) LVPWd (2D) 1.36 cm (0.6 - 1.1) IVS:LVPW ratio (2D) 0.89 ratio - LVIDd (2D) 3.88 cm (3.7 - 5.6) LVIDs (2D) 2.22 cm (2 - 3.8) LV FS (Teichholz) (2D) 42.8 % - LV FS (cube) (2D) 42.8 % - EF Teichholz (2D) 74.5 % - Ao root diameter (2D) 2.9 cm (2 - 3.7) LA dimension (AP) 2D 4 cm (1.9 - 4) LA:Ao ratio (2D) 1.38 ratio - Volumes/Mass Name Value Normal Range LA ESV SP 4CH (MOD) 50 ml - LA ESV SP 2CH (MOD) 79 ml - LA ESV BP (MOD) 64 ml - LA ESV BP (MOD) index 35.6 ml/m2 - Diastolic/Systolic Function Name Value Normal Range MV E-wave Vmax 0.64 m/sec - MV A-wave Vmax 1.27 m/sec - MV E:A ratio 0.5 ratio - LV septal e' Vmax 0.03 m/sec - LV lateral e' Vmax 0.05 m/sec - LV E:e' septal ratio 19.4 ratio - LV E:e' lateral ratio 12.9 ratio - Aortic Valve Name Value Normal Range AV VTI 34.3 cm - AV mean gradient 8 mmHg - LVOT diameter 2.1 cm - LVOT VTI 23.1 cm - LVOT mean gradient 4 mmHg - SV LVOT 80 ml - ZOË (continuity VTI) 2.33 cm2 - Mitral Valve Name Value Normal Range MV Vmax 1.36 m/sec - MV VTI 30.1 cm - MV peak gradient 7 mmHg - MV mean gradient 3 mmHg - MV PHT 125 msec - MVA (PHT) 1.76 cm2 - MVA (continuity VTI) 2.66 cm2 - Tricuspid Valve Name Value Normal Range TR Vmax 1.66 m/sec - TR peak gradient 11 mmHg - RAP 3 mmHg - RVSP 14 mmHg - Pulmonic Valve/Qp:Qs Name Value Normal Range PV Vmax 1.45 m/sec - PV VTI 28 cm - PV peak gradient 8 mmHg - PV mean gradient 5 mmHg - Bañuelos/IV: Voiding Method External Female Catheter IV Catheter Type [Left Forearm Peripheral IV ] IV Catheter Type [Left Hand] INT / Saline Lock IV Catheter Type [Right INT / Saline Lock Antecubital] Active Medications - Current Medications Current Medications: Generic Name Dose Route Start Last Admin Trade Name Nenoq PRN Reason Stop Dose Admin Acetaminophen 650 mg 01/18/20 18:37 Tylenol PO Q4H PRN Pain, Mild (1-3) Amlodipine Besylate 10 mg 01/20/20 12:00 01/26/20 10:30 Amlodipine PO 10 mg DAILY FLOWER Administration Aspirin 325 mg 01/18/20 20:00 01/26/20 10:29 Aspirin PO 325 mg QDAY FLOWER Administration Atorvastatin Calcium 40 mg 01/18/20 22:00 01/25/20 22:17 Lipitor PO 40 mg QHS FLOWER Administration Bisacodyl 10 mg 01/18/20 18:37 Dulcolax CA QDAY PRN Constipation Dextrose 50 ml 01/18/20 20:05 D50w (25gm) Syringe IV Q30MIN PRN Hypoglycemia Protocol Diazepam 10 mg 01/18/20 22:00 01/25/20 23:12 Valium PO Not Given QHS [facility] Heparin Sodium (Porcine) 5,000 unit 01/18/20 22:00 01/26/20 10:30 Heparin SUB-Q 5,000 unit Q12HR FLOWER Administration Hydrochlorothiazide 25 mg 01/19/20 10:00 01/26/20 10:29 Hctz PO 25 mg QDAY FLOWER Administration Hydrocortisone Acetate 25 mg 01/18/20 22:00 01/26/20 10:31 Anucort-Hc CA 25 mg Q12HR FLOWER Administration Insulin Glargine 40 units 01/21/20 10:00 01/26/20 10:32 Lantus SUB-Q 40 units BID FLOWER Administration Insulin Human Lispro 0 unit 01/18/20 22:00 01/25/20 22:17 Humalog SUB-Q 6 unit ACHS FLOWER Administration Protocol Labetalol HCl 10 mg 01/19/20 14:23 01/20/20 04:36 Labetalol IV 10 mg Q4H PRN Administration HYPERTENSION Lisinopril 10 mg 01/22/20 10:00 01/26/20 10:30 Zestril PO 10 mg QDAY FLOWER Administration Magnesium Hydroxide 30 ml 01/18/20 18:37 01/22/20 16:25 Milk Of Magnesia PO 30 ml Q4H PRN Administration Constipation Metoclopramide HCl 10 mg 01/18/20 18:37 Reglan PO Q6H PRN Nausea And Vomiting Metoprolol Tartrate 5 mg 01/21/20 12:00 01/26/20 06:03 Metoprolol IV 5 mg Q6HR FLOWER Administration Ondansetron HCl 4 mg 01/18/20 18:37 Zofran IV Q8H PRN Nausea And Vomiting Pantoprazole Sodium 40 mg 01/19/20 10:00 01/26/20 10:29 Protonix PO 40 mg DAILY FLOWER Administration Promethazine HCl 25 mg 01/18/20 18:37 Phenergan CA Q6H PRN Nausea And Vomiting Sodium Chloride 10 ml 01/18/20 18:37 01/24/20 00:35 Sodium Chloride Flush Syringe 10 Ml IV 10 ml PRN PRN Administration LINE FLUSH Nutrition/Malnutrition Assess - Dietary Evaluation Nutrition/Malnutrition Findings: Nutrition Notes Start: 01/21/20 11:25 Freq: Status: Active Protocol: Document 01/23/20 12:09 AL (Rec: 01/23/20 13:22 AL [id number]) Co-Sign 01/23/20 12:09 LM Nutrition Notes Initial or Follow up Reassessment Current Diagnosis Diabetes,Hypertension,Stroke, Hyperlipidemia Other Pertinent Diagnosis OA Current Diet Mech soft w/ chopped meats Labs/Tests POC Glu 293 Pertinent Medications Reviewed Height 5 ft 4 in Weight 72 kg [place] Body Weight (kg) 54.54 BMI 27.2 Weight change and time frame Wt change noted Weight Status Overweight Subjective/Other Information F/U for intakes and ONS needs. RN reported pt ate over 75% of her breakfast. RN reports pt is also drinking liquids well. RN reports pt's is feeding her and she is tolerating diet well. Percent of energy/protein needs met: 91%/100% Burn Absent Trauma Absent Difficulty In Swallowing Minimum of two criteria No physical signs of malnutrition #1 Nutrition Diagnosis Predicted suboptimal energy intake Diagnosis Progress(for reassessment Resolved documentation) Is patient on ventilator? No Is Patient Ambulatory and/or Out of Bed No REE-([place]-St. Jeor-confined to bed) 1458.144 [facility] Additional Notes Protein: 72-86g (1-1.2g/kg) Fluid: 1ml/kcal Nutrition Intervention Change Diet Order: Continue Goal #1 Meet at least 75% of energy and protein needs Anticipated Discharge Needs: Mech soft/consistent CHO/ cardiac Revisit per MD consult or patient Sign Off request:
[2020-01-26] MEDS: diazePAM 5 MG TAB PO SCH (22:35)
[2020-01-27] MEDS: METOPROLOL TARTRATE 5 MG/5 ML INJ IV SCH ×5 (00:34→17:42)
[2020-01-27] MEDS: INSULIN LISPRO 100 UNIT/ML VIAL 3 mL SUB-Q SCH ×4 (09:00→23:05)
--- NOTE | 2020-01-27 11:02 | Progress Note ---
Assessment and Plan Assessment and plan: Assessment and plan: 74 YO Female with HTN,HLD, DM, OA presents to the emergency department for evaluation. Patient is non-Uzbek speaking and unable to provide history. Patient history taken via network lead via hog cutter. As per interpreterthe patient reports that she was in her usual state of health at bedtime around 2200 hrs. Patient awoke from sleep this morning and was found to have right leg weakness. Patient was unable to move her leg and unable to ambulate due to loss of sensation. EMS was notified and upon arrival the patient was found to be in distress with a neurologic deficit. A code stroke was called and the patient was transported to [facility] for further care and eval uation of the aforementioned symptoms. Patient seen and evaluated in the emergency department. Lab and imaging studies reviewed. Patient found to have clinical symptoms consistent with CVA. Patient deemed outside the therapeutic window for TPA. Patient placed in observation status and admitted to medical floor and initiated on stroke protocol. Prior admission on 07/18/2017 reviewed. All medication listed at time of admission has been reconciled. Advanced care planning conducted in ED. 01/20: Patient two nights ago had sudden change from previously noted right sided weakness and had expressive aphasia, Repeat imaging studies confirmed CVA, Patient is beginning to show some improvement, will continue to improve BP. Family notified at bedside. Continue Rehab therapy and Monitor BP. CT of head done today-showed Subacute ischemic changes are seen in the left anterior cerebral artery territory 01/21. MRI brain showed left subacute infarct. Discussed with at bedside. She will need acute rehab. CM aware 01/22. Awaiting insurance auth. No change in clinical condition 01/23. Seen getting PT. She ate all her breakfast today as per . 01/24. Still pending placement. 01/25. Discussed with and he wants to take patient home if possible. he needs to get a bed and other home equipment for her. 01/26. Plan for discharge when home equipment becomes available (1) CVA (cerebral vascular accident) Current Visit: Yes Status: Acute Plan to address problem: CVA protocol: 01/18/20-CT head- showed no acute finding 01/20/20-showed Subacute ischemic changes are seen in the left anterior cerebral artery territory neuro check every 2 hrs seizure precautions, antiplatelet therapy with ASA, statin therapy ECHO and carotid Doppler-results reviewed. MRI brain shows subacute left cerebral infarct PT -rec rehab. May be going home with PT instead (2) HTN (hypertension) Current Visit: Yes Status: Acute Qualifiers: Hypertension type: essential hypertension Qualified Code(s): I10 - Essential (primary) hypertension Plan to address problem: Monitor blood pressure closely Continue current BP medications (3) Hyperlipidemia Current Visit: Yes Status: Acute Qualifiers: Hyperlipidemia type: mixed hyperlipidemia Qualified Code(s): E78.2 - Mixed hyperlipidemia Plan to address problem: continue statin therapy. (4) Diabetes with hyperglycemia Current Visit: Yes Status: Acute Plan to address problem: Monitor blood sugar with SSI Continue lantus Insulin Discussed low carbohydrate diet (5) Osteoarthritis Current Visit: Yes Status: Acute Plan to address problem: Pain control, supportive care. X-ray femur and pelvis-no acute finding Chest x-ray-no acute finding (6) DVT prophylaxis Current Visit: Yes Status: Acute Plan to address problem: SCD to bilateral lower extremities while in bed, prophylactic anticoagulation- heparin. (7) Advance care planning Current Visit: Yes Status: Acute Plan to DC home when home equipment become available History Interval history: Patient seen and examined at bedside this morning. wants to her home instead of placement. Hospitalist Physical - Constitutional Vitals: Temp Pulse Resp BP Pulse Ox 98.1 F 76 20 140/83 93 01/27/20 07:13 01/27/20 07:13 01/27/20 07:13 01/27/20 07:13 01/27/20 07:13 General appearance: Present: no acute distress - EENT Eyes: Present: PERRL - Respiratory Respiratory: bilateral: CTA - Cardiovascular Heart Sounds: Present: S1 & S2 - Extremities Extremities: No edema - Abdominal General gastrointestinal: soft, non-tender, normal bowel sounds - Neurologic Neurologic: focal deficits (RUE and RLE weakness) HEART Score - HEART Score Troponin: Troponin T < 0.010 ng/mL (0.00-0.029) 01/18/20 15:30 Results - Labs CBC & Chem 7: 01/20/20 04:36 01/20/20 04:36 Labs: Laboratory Last Values WBC 10.5 K/mm3 (4.5-11.0) 01/20/20 04:36 RBC 4.41 M/mm3 (3.65-5.03) 01/20/20 04:36 Hgb 14.6 gm/dl (10.1-14.3) H 01/20/20 04:36 Hct 42.6 % (30.3-42.9) 01/20/20 04:36 MCV 97 fl (79-97) 01/20/20 04:36 MCH 33 pg (28-32) H 01/20/20 04:36 MCHC 34 % (30-34) 01/20/20 04:36 RDW 12.9 % (13.2-15.2) L 01/20/20 04:36 Plt Count 215 K/mm3 (140-440) 01/20/20 04:36 Lymph % (Auto) 25.7 % (13.4-35.0) 01/20/20 04:36 [place] % (Auto) 10.0 % (0.0-7.3) H 01/20/20 04:36 Eos % (Auto) 1.8 % (0.0-4.3) 01/20/20 04:36 Baso % (Auto) 0.2 % (0.0-1.8) 01/20/20 04:36 Lymph # 2.7 K/mm3 (1.2-5.4) 01/20/20 04:36 [place] # 1.1 K/mm3 (0.0-0.8) H 01/20/20 04:36 Eos # 0.2 K/mm3 (0.0-0.4) 01/20/20 04:36 Baso # 0.0 K/mm3 (0.0-0.1) 01/20/20 04:36 Seg Neutrophils % 62.3 % (40.0-70.0) 01/20/20 04:36 Seg Neutrophils # 6.5 K/mm3 (1.8-7.7) 01/20/20 04:36 PT 14.0 Sec. (12.2-14.9) 01/18/20 13:45 INR 1.06 (0.87-1.13) 01/18/20 13:45 APTT 26.0 Sec. (24.2-36.6) 01/18/20 13:45 ABG pH 7.423 pH Units (7.350-7.450) 01/20/20 10:15 ABG pCO2 42.0 mm Hg 01/20/20 10:15 ABG pO2 128.1 mm Hg (80.0-90.0) H 01/20/20 10:15 ABG HCO3 26.8 mmol/L (20.0-26.0) H 01/20/20 10:15 ABG O2 Saturation 98.5 % (95.0-99.0) 01/20/20 10:15 ABG O2 Content 20.4 (0.0-44) 01/20/20 10:15 ABG Base Excess 2.1 mmol/L (-2.0-3.0) 01/20/20 10:15 ABG Hemoglobin 14.9 gm/dl (12.0-16.0) 01/20/20 10:15 ABG Carboxyhemoglobin 1.5 % (0.0-5.0) 01/20/20 10:15 ABG Methemoglobin 0.5 % (0.0-1.5) 01/20/20 10:15 Oxyhemoglobin 96.5 % (95.0-99.0) 01/20/20 10:15 FiO2 21 % 01/20/20 10:15 Sodium 136 mmol/L (137-145) L 01/20/20 04:36 Potassium 3.8 mmol/L (3.6-5.0) 01/20/20 04:36 Chloride 96.0 mmol/L (98-107) L 01/20/20 04:36 Carbon Dioxide 28 mmol/L (22-30) 01/20/20 04:36 Anion Gap 16 mmol/L 01/20/20 04:36 BUN 22 mg/dL (7-17) H 01/20/20 04:36 Creatinine 0.8 mg/dL (0.6-1.2) 01/20/20 04:36 Estimated GFR > 60 ml/min 01/20/20 04:36 BUN/Creatinine Ratio 28 % 01/20/20 04:36 Glucose 351 mg/dL (65-100) H 01/20/20 04:36 POC Glucose 188 (70-105) H 01/27/20 07:30 Hemoglobin A1c 8.4 % (4-6) H 01/20/20 04:36 Lactic Acid 1.30 mmol/L (0.7-2.0) 01/18/20 16:38 Calcium 8.9 mg/dL (8.4-10.2) 01/20/20 04:36 Total Bilirubin 0.50 mg/dL (0.1-1.2) 01/18/20 13:45 AST 25 units/L (5-40) 01/18/20 13:45 ALT 15 units/L (7-56) 01/18/20 13:45 Alkaline Phosphatase 84 units/L (35-129) 01/18/20 13:45 Troponin T < 0.010 ng/mL (0.00-0.029) 01/18/20 15:30 NT-Pro-B Natriuret Pep 362.7 pg/mL (0-900) 01/18/20 13:45 Total Protein 6.6 g/dL (6.3-8.2) 01/18/20 13:45 Albumin 4.0 g/dL (3.9-5) 01/18/20 13:45 Albumin/Globulin Ratio 1.5 % 01/18/20 13:45 Triglycerides 169 mg/dL (2-149) H 01/19/20 04:34 Cholesterol 165 mg/dL (50-199) 01/19/20 04:34 LDL Cholesterol Direct 107 mg/dL (50-130) 01/19/20 04:34 HDL Cholesterol 37 mg/dL (40-59) L 01/19/20 04:34 Cholesterol/HDL Ratio 4.45 % 01/19/20 04:34 Urine Color Yellow (Yellow) 01/18/20 16:17 Urine Turbidity Clear (Clear) 01/18/20 16:17 Urine pH 5.0 (5.0-7.0) 01/18/20 16:17 Ur Specific [place] 1.025 (1.003-1.030) 01/18/20 16:17 Urine Protein 30 mg/dl mg/dL (Negative) 01/18/20 16:17 Urine Glucose (UA) Neg mg/dL (Negative) 01/18/20 16:17 Urine Ketones 20 mg/dL (Negative) 01/18/20 16:17 Urine Blood Neg (Negative) 01/18/20 16:17 Urine Nitrite Neg (Negative) 01/18/20 16:17 Urine Bilirubin Neg (Negative) 01/18/20 16:17 Urine Urobilinogen 4.0 mg/dL (<2.0) 01/18/20 16:17 Ur Leukocyte Esterase Tr (Negative) 01/18/20 16:17 Urine WBC (Auto) 1.0 /HPF (0.0-6.0) 01/18/20 16:17 Urine RBC (Auto) 1.0 /HPF (0.0-6.0) 01/18/20 16:17 U Epithel Cells (Auto) < 1.0 /HPF (0-13.0) 01/18/20 16:17 Urine Bacteria (Auto) 1+ /HPF (Negative) 01/18/20 16:17 Urine Mucus 2+ /HPF 01/18/20 16:17 Coronavirus (PCR) Negative (Negative) 01/22/20 Unknown - Diagnostic Impressions Diagnostic Impressions: Echocardiogram 01/18/20 18:39 Transthoracic Echocardiogram Indication: Stroke BP: 163/94 Conclusions *Global left ventricular systolic function is normal. *The estimated ejection fraction is 60-65%. *The right ventricular global systolic function is normal. *No atrial septal defected is demonstrated by color Doppler and agitated saline contrast. *Mild aortic cusp sclerosis is present. *There is no evidence of aortic regurgitation. *There is no evidence of mitral regurgitation. *There is trace tricuspid regurgitation. *The right ventricular systolic pressure is calculated at 14 mmHg. *There is no evidence of pulmonic regurgitation. Findings Left Ventricle: The left ventricular chamber size is normal. Mild concentric left ventricular hypertrophy is observed. Global left ventricular wall motion and contractility are within normal limits. Global left ventricular systolic function is normal. The estimated ejection fraction is 60-65%. Normal left ventricular diastolic filling is observed. Left Atrium: The left atrium is normal in size with no visual thrombus identified. Right Ventricle: The right ventricular cavity size is normal. The right ventricular global systolic function is normal. Right Atrium: The right atrium appears normal. The interatrial septum appears normal. No atrial septal defected is demonstrated by color Doppler and agitated saline contrast. Aortic Valve: The aortic valve is trileaflet. Mild aortic cusp sclerosis is present. There is no evidence of aortic regurgitation. There is no evidence of aortic stenosis. Mitral Valve: Mitral valve posterior leaflet calcification is visualized. There is no evidence of mitral regurgitation. There is no evidence of mitral stenosis. Tricuspid Valve: The tricuspid valve leaflets are normal. There is trace tricuspid regurgitation. The right ventricular systolic pressure is calculated at 14 mmHg. There is no tricuspid stenosis. Pulmonic Valve: The pulmonic valve appears normal. There is no evidence of pulmonic regurgitation. There is no pulmonic stenosis. Pericardium: There is no pericardial effusion. Aorta: There is no dilatation of the ascending aorta. There is no dilatation of the aortic arch. Measurements Chambers MM Name Value Normal Range Ao root diameter (MM) 2.9 cm (2 - 3.7) LA dimension (AP) MM 4.1 cm (1.9 - 4) LA:Ao ratio (MM) 1.41 ratio - AV cusp separation (MM) 1.7 cm (1.5 - 2.6) Chambers 2D Name Value Normal Range RVIDd (AP) 2D 2.65 cm (0.9 - 2.6) IVSd (2D) 1.21 cm (0.6 - 1.1) LVPWd (2D) 1.36 cm (0.6 - 1.1) IVS:LVPW ratio (2D) 0.89 ratio - LVIDd (2D) 3.88 cm (3.7 - 5.6) LVIDs (2D) 2.22 cm (2 - 3.8) LV FS (Teichholz) (2D) 42.8 % - LV FS (cube) (2D) 42.8 % - EF Teichholz (2D) 74.5 % - Ao root diameter (2D) 2.9 cm (2 - 3.7) LA dimension (AP) 2D 4 cm (1.9 - 4) LA:Ao ratio (2D) 1.38 ratio - Volumes/Mass Name Value Normal Range LA ESV SP 4CH (MOD) 50 ml - LA ESV SP 2CH (MOD) 79 ml - LA ESV BP (MOD) 64 ml - LA ESV BP (MOD) index 35.6 ml/m2 - Diastolic/Systolic Function Name Value Normal Range MV E-wave Vmax 0.64 m/sec - MV A-wave Vmax 1.27 m/sec - MV E:A ratio 0.5 ratio - LV septal e' Vmax 0.03 m/sec - LV lateral e' Vmax 0.05 m/sec - LV E:e' septal ratio 19.4 ratio - LV E:e' lateral ratio 12.9 ratio - Aortic Valve Name Value Normal Range AV VTI 34.3 cm - AV mean gradient 8 mmHg - LVOT diameter 2.1 cm - LVOT VTI 23.1 cm - LVOT mean gradient 4 mmHg - SV LVOT 80 ml - ZOË (continuity VTI) 2.33 cm2 - Mitral Valve Name Value Normal Range MV Vmax 1.36 m/sec - MV VTI 30.1 cm - MV peak gradient 7 mmHg - MV mean gradient 3 mmHg - MV PHT 125 msec - MVA (PHT) 1.76 cm2 - MVA (continuity VTI) 2.66 cm2 - Tricuspid Valve Name Value Normal Range TR Vmax 1.66 m/sec - TR peak gradient 11 mmHg - RAP 3 mmHg - RVSP 14 mmHg - Pulmonic Valve/Qp:Qs Name Value Normal Range PV Vmax 1.45 m/sec - PV VTI 28 cm - PV peak gradient 8 mmHg - PV mean gradient 5 mmHg - Bañuelos/IV: Voiding Method External Female Catheter IV Catheter Type [Left Forearm Peripheral IV ] IV Catheter Type [Left Hand] INT / Saline Lock IV Catheter Type [Right INT / Saline Lock Antecubital] Active Medications - Current Medications Current Medications: Generic Name Dose Route Start Last Admin Trade Name Freq PRN Reason Stop Dose Admin Acetaminophen 650 mg 01/18/20 18:37 Tylenol PO Q4H PRN Pain, Mild (1-3) Amlodipine Besylate 10 mg 01/20/20 12:00 01/26/20 10:30 Amlodipine PO 10 mg DAILY FLOWER Administration Aspirin 325 mg 01/18/20 20:00 01/26/20 10:29 Aspirin PO 325 mg QDAY FLOWER Administration Atorvastatin Calcium 40 mg 01/18/20 22:00 01/26/20 22:33 Lipitor PO 40 mg QHS FLOWER Administration Bisacodyl 10 mg 01/18/20 18:37 Dulcolax NC QDAY PRN Constipation Dextrose 50 ml 01/18/20 20:05 D50w (25gm) Syringe IV Q30MIN PRN Hypoglycemia Protocol Diazepam 10 mg 01/18/20 22:00 01/26/20 22:35 Valium PO Not Given QHS FLOWER Heparin Sodium (Porcine) 5,000 unit 01/18/20 22:00 01/26/20 22:34 Heparin SUB-Q 5,000 unit Q12HR FLOWER Administration Hydrochlorothiazide 25 mg 01/19/20 10:00 01/26/20 10:29 Hctz PO 25 mg QDAY FLOWER Administration Hydrocortisone Acetate 25 mg 01/18/20 22:00 01/26/20 22:34 Anucort-Hc NC 25 mg Q12HR FLOWER Administration Insulin Glargine 40 units 01/21/20 10:00 01/26/20 22:34 Lantus SUB-Q 40 units BID FLOWER Administration Insulin Human Lispro 0 unit 01/27/20 07:30 Humalog SUB-Q ACHS [facility] Protocol Labetalol HCl 10 mg 01/19/20 14:23 01/20/20 04:36 Labetalol IV 10 mg Q4H PRN Administration HYPERTENSION Lisinopril 10 mg 01/22/20 10:00 01/26/20 10:30 Zestril PO 10 mg QDAY FLOWER Administration Magnesium Hydroxide 30 ml 01/18/20 18:37 01/22/20 16:25 Milk Of Magnesia PO 30 ml Q4H PRN Administration Constipation Metoclopramide HCl 10 mg 01/18/20 18:37 Reglan PO Q6H PRN Nausea And Vomiting Metoprolol Tartrate 5 mg 01/21/20 12:00 01/27/20 06:10 Metoprolol IV 5 mg Q6HR FLOWER Administration Ondansetron HCl 4 mg 01/18/20 18:37 Zofran IV Q8H PRN Nausea And Vomiting Pantoprazole Sodium 40 mg 01/19/20 10:00 01/26/20 10:29 Protonix PO 40 mg DAILY FLOWER Administration Promethazine HCl 25 mg 01/18/20 18:37 Phenergan NC Q6H PRN Nausea And Vomiting Sodium Chloride 10 ml 01/18/20 18:37 01/24/20 00:35 Sodium Chloride Flush Syringe 10 Ml IV 10 ml PRN PRN Administration LINE FLUSH Nutrition/Malnutrition Assess - Dietary Evaluation Nutrition/Malnutrition Findings: Nutrition Notes Start: 01/21/20 11:25 Freq: Status: Active Protocol: Document 01/23/20 12:09 AL (Rec: 01/23/20 13:22 AL [id number]) Co-Sign 01/23/20 12:09 LM Nutrition Notes Initial or Follow up Reassessment Current Diagnosis Diabetes,Hypertension,Stroke, Hyperlipidemia Other Pertinent Diagnosis OA Current Diet Mech soft w/ chopped meats Labs/Tests POC Glu 293 Pertinent Medications Reviewed Height 5 ft 4 in Weight 72 kg [place] Body Weight (kg) 54.54 BMI 27.2 Weight change and time frame Wt change noted Weight Status Overweight Subjective/Other Information F/U for intakes and ONS needs. RN reported pt ate over 75% of her breakfast. RN reports pt is also drinking liquids well. RN reports pt's is feeding her and she is tolerating diet well. Percent of energy/protein needs met: 91%/100% Burn Absent Trauma Absent Difficulty In Swallowing Minimum of two criteria No physical signs of malnutrition #1 Nutrition Diagnosis Predicted suboptimal energy intake Diagnosis Progress(for reassessment Resolved documentation) Is patient on ventilator? No Is Patient Ambulatory and/or Out of Bed No REE-(Cook-St. Jeor-confined to bed) 1458.144 Calculation Used for Recommendations Cook-St Jeor Additional Notes Protein: 72-86g (1-1.2g/kg) Fluid: 1ml/kcal Nutrition Intervention Change Diet Order: Continue Goal #1 Meet at least 75% of energy and protein needs [facility] Revisit per MD consult or patient Sign Off request:
[2020-01-27] MEDS: amLODIPine 10 MG TAB PO SCH (11:52)
[2020-01-27] MEDS: ASPIRIN 325 MG TAB PO SCH (11:52)
[2020-01-27] MEDS: LISINOPRIL 10 MG TAB PO SCH (11:53)
[2020-01-27] MEDS: PANTOPRAZOLE 40 MG TAB PO SCH (11:54)
[2020-01-27] MEDS: hydroCHLOROthiazide 25 MG TAB PO SCH (11:54)
[2020-01-27] MEDS: HEPARIN 5,000 UNIT/1 ML VIAL SUB-Q SCH ×2 (11:54→21:43)
[2020-01-27] MEDS: HYDROCORTISONE 25 MG RECTAL SUPP PR SCH ×2 (11:58→21:44)
[2020-01-27] MEDS: INSULIN GLARGINE 100 UNITS/ML SUB-Q SCH ×2 (12:01→23:03)
[2020-01-27] MEDS: diazePAM 5 MG TAB PO SCH (23:06)
[2020-01-28] MEDS: INSULIN LISPRO 100 UNIT/ML VIAL 3 mL SUB-Q SCH ×3 (08:05→16:17)
[2020-01-28] MEDS: hydroCHLOROthiazide 25 MG TAB PO SCH (09:35)
[2020-01-28] MEDS: amLODIPine 10 MG TAB PO SCH (09:35)
[2020-01-28] MEDS: ASPIRIN 325 MG TAB PO SCH (09:35)
[2020-01-28] MEDS: PANTOPRAZOLE 40 MG TAB PO SCH (09:36)
[2020-01-28] MEDS: HYDROCORTISONE 25 MG RECTAL SUPP PR SCH (09:36)
[2020-01-28] MEDS: INSULIN GLARGINE 100 UNITS/ML SUB-Q SCH (09:36)
[2020-01-28] MEDS: LISINOPRIL 10 MG TAB PO SCH (09:36)
[2020-01-28] MEDS: HEPARIN 5,000 UNIT/1 ML VIAL SUB-Q SCH (09:36)
--- NOTE | 2020-01-28 11:29 | Discharge Summary ---
Providers - Providers Date of Admission: 01/18/20 18:38 Date of discharge: 01/28/20 Attending physician: DESMOND CONNOR 01/18/20 18:38 Consult to Case Management [CONS] Routine Services Needed at Discharge: Other Notified:: in am Additional Physician Instructions: D/C Planning/Placement Occupational Therapy Evaluate and Treat [CONS] Routine Comment: Reason For Exam: Neuro deficits Physical Therapy Evaluation and Treat [CONS] Routine Comment: Reason For Exam: Neuro deficits Speech Therapy Evaluation and Treat [CONS] Routine Reason For Exam: swallow eval 01/20/20 10:34 Consult to Dietitian/Nutrition [CONS] Routine Physician Instructions: Reason For Exam: Reason for Consult: Poor oral intake 01/20/20 11:13 Consult to Physician [CONS] Routine Comment: Consulting Provider: JACOB DICKERSON Physician Instructions: Reason For Exam: cva ams 01/20/20 12:56 Speech Therapy Evaluation and Treat [CONS] Routine Reason For Exam: cva 01/21/20 11:19 Consult to Physician [CONS] Routine Comment: Consulting Provider: KELLY NASSAR Physician Instructions: Reason For Exam: cva Primary care physician: DEPORTATION EXAMINER Hospitalization Condition: Fair Hospital course: 74 YO Female with HTN,HLD, DM, OA presents to the emergency department for evaluation. Patient is non-Italian speaking and unable to provide history. Patient history taken via pipe organ mechanic apprentice via spanish interpreter. As per interpreterthe patient reports that she was in her usual state of health at bedtime around 2200 hrs. Patient awoke from sleep this morning and was found to have right leg weakness. Patient was unable to move her leg and unable to ambulate due to loss of sensation. EMS was notified and upon arrival the patient was found to be in distress with a neurologic deficit. A code stroke was called and the patient was transported to [facility] for further care and evaluation of the aforementioned symptoms. Patient seen and evaluated in the emergency department. Lab and imaging studies reviewed. Patient found to have clinical symptoms consistent with CVA. Patient deemed outside the therapeutic window for TPA. Patient placed in observation status and admitted to medical floor and initiated on stroke protocol. Prior admission on 07/18/2017 reviewed. All medication listed at time of admission has been reconciled. Advanced care planning conducted in ED. 01/20: Patient two nights ago had sudden change from previously noted right sided weakness and had expressive aphasia, Repeat imaging studies confirmed CVA, P atient is beginning to show some improvement, will continue to improve BP. Family notified at bedside. Continue Rehab therapy and Monitor BP. CT of head done today-showed Subacute ischemic changes are seen in the left anterior cerebral artery territory 01/21. MRI brain showed left subacute infarct. Discussed with at bedside. She will need acute rehab. CM aware 01/22. Awaiting insurance auth. No change in clinical condition 01/23. Seen getting PT. She ate all her breakfast today as per . 01/24. Still pending placement. 01/25. Discussed with and he wants to take patient home if possible. he needs to get a bed and other home equipment for her. 01/26. Plan for discharge when home equipment becomes available 01/27. She will be discharged home today to follow up with neurology in the office. Discussed with patients . Disposition: DC/TX- HOME UNDER HOME HLTH - Discharge Diagnoses (1) CVA (cerebral vascular accident) Status: Acute Qualifiers: Precerebral and cerebral artery: basilar artery (2) Diabetes Status: Acute (3) HTN (hypertension) Status: Acute Qualifiers: Hypertension type: essential hypertension Qualified Code(s): I10 - Essential (primary) hypertension (4) Hyperlipidemia Status: Acute Qualifiers: Hyperlipidemia type: mixed hyperlipidemia Qualified Code(s): E78.2 - Mixed hyperlipidemia Core Measure Documentation - Palliative Care Palliative Care/ Comfort Measures: Not Applicable - Core Measures Any of the following diagnoses?: none - Stroke Discharge Requirements Statin for LDL = or >70 mg/dl on DC: Yes Anticoag for atrial fib/atrial flutter: Not Applicable Exam - Constitutional Vitals: Temp Pulse Resp BP Pulse Ox 98.2 F 92 H 18 146/78 98 01/28/20 08:11 01/28/20 10:00 01/28/20 10:00 01/28/20 09:36 01/28/20 10:00 General appearance: Present: no acute distress, well-nourished - EENT Eyes: Present: PERRL ENT: hearing intact, clear oral mucosa - Neck Neck: Present: supple, normal ROM - Respiratory Respiratory effort: normal Respiratory: bilateral: CTA - Cardiovascular Heart Sounds: Present: S1 & S2. Absent: rub, click - Extremities Extremities: pulses symmetrical, No edema Peripheral Pulses: within normal limits - Abdominal General gastrointestinal: Present: soft, non-tender, non-distended, normal bowel sounds Female genitourinary: Present: normal - Integumentary Integumentary: Present: clear, warm, dry - Musculoskeletal Musculoskeletal: gait normal, strength equal bilaterally - Psychiatric Psychiatric: appropriate mood/affect, intact judgment & insight - Neurologic Neurologic: other (Alert, has RUE and RLE weakness. ) Plan Activity: no restrictions Diet: low fat, low cholesterol, low salt Special Instructions: record daily BP diary, record blood sugar diary, physical therapy, home health RN Durable Medical Equipment Needed Upon Discharge: Cane, Walker-Standard, Wheelchair Additional Instructions: Continue medications ordered. Follow up with neurology in the office Follow up with: PRIMARY CAREMD [Primary Care Provider] - 3-5 Days EDIE DICKERSON MD [Staff Physician] - 7 Days Prescriptions: AtorvaSTATin [Lipitor] 40 mg PO QHS #30 tablet amLODIPine 10 mg PO DAILY #30 tablet Aspirin 325 mg PO QDAY #30 tablet hydroCHLOROthiazide [HCTZ] 25 mg PO QDAY #30 tablet lisinopriL [Zestril TAB] 10 mg PO QDAY #30 tablet
[2020-01-28] MEDS: METOPROLOL TARTRATE 5 MG/5 ML INJ IV SCH (12:10)
[2020-01-28 16:51] VITALS: BP 111/64
== END 2020-01-28 18:28 | disposition home health service (06) | DRG 66 ==
LOC: ED 11:48 → 4A 18:38 → OBSVTOIN 18:38 → 4A 19:47
PROVIDERS: ADMIT Internal Medicine; ATTEND Internal Medicine
PROC: 4A033R1 Measurement of Arterial Saturation, Peripheral, Percutaneous Approach (ICD-10-PCS; principal; 2020-01-20)
DX: I63.9 Cerebral infarction, unspecified (principal); E78.2 Mixed hyperlipidemia; I10 Essential (primary) hypertension; E11.65 Type 2 diabetes mellitus with hyperglycemia; M19.90 Unspecified osteoarthritis, unspecified site; Z90.49 Acquired absence of other specified parts of digestive tract; Z90.710 Acquired absence of both cervix and uterus; Z03.818 Encounter for observation for suspected exposure to other biological agents ruled out; Z82.49 Family history of ischemic heart disease and other diseases of the circulatory system; Z83.3 Family history of diabetes mellitus; Z79.899 Other long term (current) drug therapy; Z91.041 Radiographic dye allergy status
CPT/HCPCS: 36415; 36600; 70450; 70551; 71045; 72170; 74018; 80048; 80053; 80061; 81001; 82140; 82803; 82962; 83036; 83880; 84484; 85025; 85610; 85730; 87040; 93306; 93880; G0378; A9270-GY; J1644; J1815; J7042; U0003-CS

== ENCOUNTER 2020-04-08 08:51 | Emergency (ER) | payer MEDICARE ==
--- NOTE | 2020-04-08 09:07 | Emergency Department Report ---
ED General Adult HPI - General Chief complaint: Altered Mental Status Stated complaint: FABIOAIREA PUI?: No Time Seen by Provider: 04/08/20 09:02 Source: patient, family Mode of arrival: Stretcher Limitations: Other - History of Present Illness Initial comments: Patient is a 74-year-old female status post recent left anterior cerebral artery CVA who presents with her to the emergency department for evaluation of altered mental status noted by her as confusion overnight last night associated with polydipsia and polyuria over the same timeframe. Patient had been in a care facility, was removed by her secondary to depression, notes in the past several days patient has limited use of her right hand and right leg, states leg weakness existed initially, however, patient seems to have increasing weakness of her right hand. Patient herself is upset, states her brought her to the emergency department because he thinks "she is crazy." Patient denies any febrile complaint, denies chest pain, denies shortness of breath, denies nausea vomiting or diarrhea. Patient denies any new weakness or sensory changes. Patient denies headache. - Related Data Home Medications Medication Instructions Recorded Confirmed Last Taken Dexlansoprazole [Dexilant] 60 mg PO QAM 10/21/15 01/19/20 Unknown Glimepiride [Amaryl] 2 mg PO BID 10/21/15 01/19/20 Unknown Glimepiride [Amaryl] 4 mg PO HS 10/21/15 01/19/20 Unknown diazePAM [Diazepam] 10 mg PO HS 10/21/15 01/19/20 Unknown metFORMIN [Glucophage] 1,000 mg PO BID 10/21/15 01/19/20 Unknown Lantus VIAL 35 units IJ BID 01/19/20 01/19/20 01/18/20 Previous Rx's Medication Instructions Recorded Last Taken Type Hydrocortisone [Anucort-HC SUPPOS] 25 mg PA Q12HR #30 supp.rect 07/18/17 Unknown Rx HYDROcodone/APAP 5-325 [[place] 1 each PO TID #10 tablet 02/25/18 Unknown Rx 5-325 mg TAB] Aspirin 325 mg PO QDAY #30 tablet 01/28/20 Unknown Rx AtorvaSTATin [Lipitor] 40 mg PO QHS #30 tablet 01/28/20 Unknown Rx amLODIPine 10 mg PO DAILY #30 tablet 01/28/20 Unknown Rx hydroCHLOROthiazide [HCTZ] 25 mg PO QDAY #30 tablet 01/28/20 Unknown Rx lisinopriL [Zestril TAB] 10 mg PO QDAY #30 tablet 01/28/20 Unknown Rx Allergies Allergy/AdvReac Type Severity Reaction Status Date / Time iodine Allergy Rash Verified 08/27/14 12:53 propofol [From Diprivan] AdvReac Anaphylaxis Verified 05/26/16 18:32 ED Review of Systems ROS: Stated complaint: EVALUAITON Other details as noted in HPI Constitutional: denies: chills, fever Eyes: denies: eye pain, eye discharge, vision change ENT: denies: ear pain, throat pain Respiratory: denies: cough, shortness of breath, wheezing Cardiovascular: denies: chest pain, palpitations Endocrine: no symptoms reported Gastrointestinal: denies: abdominal pain, nausea, diarrhea Genitourinary: denies: urgency, dysuria, discharge Musculoskeletal: as per HPI. denies: back pain, joint swelling, arthralgia Skin: denies: rash, lesions Neurological: as per HPI, weakness. denies: headache, paresthesias Psychiatric: denies: anxiety, depression Hematological/Lymphatic: denies: easy bleeding, easy bruising ED Past Medical Hx - Past Medical History Hx Hypertension: Yes Hx Diabetes: Yes Hx Arthritis: Yes - Surgical History Hx Cholecystectomy: Yes Additional Surgical History: Hysterectomy, Colon Polyps - Social History Smoking Status: Never Smoker - Medications Home Medications: Home Medications Medication Instructions Recorded Confirmed Last Taken Type Dexlansoprazole [Dexilant] 60 mg PO QAM 10/21/15 01/19/20 Unknown History Glimepiride [Amaryl] 2 mg PO BID 10/21/15 01/19/20 Unknown History Glimepiride [Amaryl] 4 mg PO HS 10/21/15 01/19/20 Unknown History diazePAM [Diazepam] 10 mg PO HS 10/21/15 01/19/20 Unknown History metFORMIN [Glucophage] 1,000 mg PO BID 10/21/15 01/19/20 Unknown History Hydrocortisone [Anucort-HC SUPPOS] 25 mg PA Q12HR #30 supp.rect 07/18/17 01/19/20 Unknown Rx HYDROcodone/APAP 5-325 [[place] 1 each PO TID #10 tablet 02/25/18 01/19/20 Unknown Rx 5-325 mg TAB] Lantus VIAL 35 units IJ BID 01/19/20 01/19/20 01/18/20 History Aspirin 325 mg PO QDAY #30 tablet 01/28/20 Unknown Rx AtorvaSTATin [Lipitor] 40 mg PO QHS #30 tablet 01/28/20 Unknown Rx amLODIPine 10 mg PO DAILY #30 tablet 01/28/20 Unknown Rx hydroCHLOROthiazide [HCTZ] 25 mg PO QDAY #30 tablet 01/28/20 Unknown Rx lisinopriL [Zestril TAB] 10 mg PO QDAY #30 tablet 01/28/20 Unknown Rx ED Physical Exam - General Limitations: Other General appearance: alert, in no apparent distress - Head Head exam: Present: atraumatic, normocephalic - Eye Eye exam: Present: normal appearance - ENT ENT exam: Present: mucous membranes moist - Neck Neck exam: Present: normal inspection - Respiratory Respiratory exam: Present: normal lung sounds bilaterally. Absent: respiratory distress - Cardiovascular Cardiovascular Exam: Present: regular rate, normal rhythm. Absent: systolic murmur, diastolic murmur, rubs, gallop - GI/Abdominal GI/Abdominal exam: Present: soft, normal bowel sounds - Extremities Exam Extremities exam: Present: normal inspection - Back Exam Back exam: Present: normal inspection - Neurological Exam Neurological exam: Present: alert, oriented X3, CN II-XII intact, motor sensory deficit - Expanded Neurological Exam Expanded Speech: Present: fluid speech Cranial nerves: EOM's Intact: Normal Cerebellar function: Finger to Nose: Normal Motor strength exam: RUE: 4 (coachable from 4+ to possibly 5), LUE: 5, RLE: 4, LLE: 3 Best Eye Response ([place]): (4) open spontaneously Best Motor Response ([place]): (6) obeys commands Best Verbal Response ([place]): (5) oriented [place] Total: 15 - Psychiatric Psychiatric exam: Present: normal affect, normal mood - Skin Skin exam: Present: warm, dry, intact, normal color. Absent: rash ED Course Vital Signs 04/08/20 04/08/20 04/08/20 09:05 09:08 10:37 Temperature 97.8 F Pulse Rate 74 Respiratory 18 18 Rate Blood Pressure 183/90 Blood Pressure [Left] O2 Sat by Pulse 96 96 94 Oximetry 04/08/20 04/08/20 04/08/20 10:46 10:48 11:00 Temperature Pulse Rate 70 70 84 Respiratory 17 18 11 L Rate Blood Pressure 154/98 154/98 Blood Pressure 154/98 [Left] O2 Sat by Pulse 98 98 96 Oximetry 04/08/20 04/08/20 04/08/20 11:16 11:30 11:45 Temperature Pulse Rate 74 76 74 Respiratory 10 L 20 17 Rate Blood Pressure 183/79 165/87 179/93 Blood Pressure [Left] O2 Sat by Pulse 94 94 90 Oximetry 04/08/20 12:00 Temperature Pulse Rate 76 Respiratory 18 Rate Blood Pressure 188/87 Blood Pressure [Left] O2 Sat by Pulse 92 Oximetry ED Medical Decision Making - Lab Data Result diagrams: 04/08/20 09:31 04/08/20 09:31 Vital Signs 04/08/20 04/08/20 04/08/20 09:05 09:08 10:37 Temperature 97.8 F Pulse Rate 74 Respiratory 18 18 Rate Blood Pressure 183/90 Blood Pressure [Left] O2 Sat by Pulse 96 96 94 Oximetry 04/08/20 04/08/20 04/08/20 10:46 10:48 11:00 Temperature Pulse Rate 70 70 84 Respiratory 17 18 11 L Rate Blood Pressure 154/98 154/98 Blood Pressure 154/98 [Left] O2 Sat by Pulse 98 98 96 Oximetry 04/08/20 04/08/20 04/08/20 11:16 11:30 11:45 Temperature Pulse Rate 74 76 74 Respiratory 10 L 20 17 Rate Blood Pressure 183/79 165/87 179/93 Blood Pressure [Left] O2 Sat by Pulse 94 94 90 Oximetry 04/08/20 12:00 Temperature Pulse Rate 76 Respiratory 18 Rate Blood Pressure 188/87 Blood Pressure [Left] O2 Sat by Pulse 92 Oximetry Lab Results 04/08/20 04/08/20 04/08/20 Range/Units 09:31 09:31 10:47 WBC 17.7 H (4.5-11.0) K/mm3 RBC 4.77 (3.65-5.03) M/mm3 Hgb 15.5 H (10.1-14.3) gm/dl Hct 45.3 H (30.3-42.9) % MCV 95 (79-97) fl MCH 32 (28-32) pg MCHC 34 (30-34) % RDW 13.3 (13.2-15.2) % Plt Count 280 (140-440) K/mm3 Lymph % (Auto) 11.8 L (13.4-35.0) % [place] % (Auto) 6.8 (0.0-7.3) % Eos % (Auto) 1.0 (0.0-4.3) % Baso % (Auto) 0.6 (0.0-1.8) % Lymph # (Auto) 2.1 (1.2-5.4) K/mm3 [place] # (Auto) 1.2 H (0.0-0.8) K/mm3 Eos # (Auto) 0.2 (0.0-0.4) K/mm3 Baso # (Auto) 0.1 (0.0-0.1) K/mm3 Seg Neutrophils % 79.8 H (40.0-70.0) % Seg Neutrophils # 14.1 H (1.8-7.7) K/mm3 Sodium 135 L (137-145) mmol/L Potassium 4.8 (3.6-5.0) mmol/L Chloride 99.1 (98-107) mmol/L Carbon Dioxide 24 (22-30) mmol/L Anion Gap 17 mmol/L BUN 16 (7-17) mg/dL Creatinine 0.5 L (0.6-1.2) mg/dL Estimated GFR > 60 ml/min BUN/Creatinine Ratio 32 % Glucose 266 H (65-100) mg/dL Calcium 8.8 (8.4-10.2) mg/dL Troponin T < 0.010 (0.00-0.029) ng/mL Urine Color Yellow (Yellow) Urine Turbidity Clear (Clear) Urine pH 6.0 (5.0-7.0) Ur Specific [place] 1.012 (1.003-1.030) Urine Protein <15 mg/dl (Negative) mg/dL Urine Glucose (UA) 50 (Negative) mg/dL Urine Ketones Neg (Negative) mg/dL Urine Blood Neg (Negative) Urine Nitrite Neg (Negative) Urine Bilirubin Neg (Negative) Urine Urobilinogen < 2.0 (<2.0) mg/dL Ur Leukocyte Esterase Tr (Negative) Urine WBC (Auto) 4.0 (0.0-6.0) /HPF Urine RBC (Auto) 1.0 (0.0-6.0) /HPF U Epithel Cells (Auto) < 1.0 (0-13.0) /HPF - Radiology Data Radiology results: report reviewed CHEST 1 VIEW INDICATION / CLINICAL INFORMATION: weakness. COMPARISON: 01/18/2020 FINDINGS: SUPPORT DEVICES: None. HEART / MEDIASTINUM: No significant abnormality. LUNGS / PLEURA: No significant pulmonary or pleural abnormality. No pneumothorax. ADDITIONAL FINDINGS: No significant additional findings. IMPRESSION: 1. No acute findings. Signer Name: Zhanna York MD Signed: 04/08/2020 12:06 PM Workstation Name: [id number] Transcribed By: Dictated By: ZHANNA YORK III Electronically Authenticated By: ZHANNA YORK III Signed Date/Time: 04/08/20 1206 DD/ 1205 TD/TT: CT head/brain wo con INDICATION / CLINICAL INFORMATION: 74 years Female; R hand weakness. TECHNIQUE: Routine CT head without contrast. All CT scans at this location are performed using CT dose reduction for ALARA by means of automated exposure control. COMPARISON: The study is compared to the previous CT of 01/20/2020 FINDINGS: BRAIN / INTRACRANIAL CONTENTS: There have been continued interval evolutionary changes of the infarct along the left AUBREY distribution from 01/20/2020 with developing encephalomalacia. There appears be mild ex vacuo dilatation of the anterior left lateral ventricle. Otherwise, the ventricular system along with the choroid plexus appear unchanged. There is no CT evidence of acute intracranial hemorrhage. ORBITS: No significant abnormality of visualized orbits. SINUSES / MASTOIDS: No significant abnormality in the visualized paranasal sinuses or mastoid air cells. CRANIOCERVICAL JUNCTION: No significant abnormality. ADDITIONAL FINDINGS: None. IMPRESSION: 1. There have been continued interval evolutionary changes of the left AUBREY infarct from 01/20/2020 with developing encephalomalacia. Signer Name: Gianni Lugo MD Signed: 04/08/2020 10:04 AM Workstation Name: [id number] Transcribed By: MR Dictated By: Gianni Lugo MD Electronically Authenticated By: Gianni Lugo MD Signed Date/Time: 04/08/20 1004 DD/ 0957 TD/TT: - Medical Decision Making Results of labs and radiology discussed at length with patient and her who were advised to follow-up with her primary care physician Dr. Esteban. Attempted to call Dr. Esteban on 3 separate numbers, unable to connect. Advised patient/ f/u with telehealth if unable to f/u with PMD. Discussed mild leukocytosis, patient denies any signs or symptoms of infection, denies headache, denies sore throat, denies cough, denies shortness of breath, denies abdominal pain, denies dysuria, denies rash. Informed patient and repeat lab work required to ensure resolution. On discharge exam, patient in no acute distress, neuro exam nonfocal beyond pre-existing neurologic deficits, patient awake and alert oriented without complaint. Critical care attestation.: If time is entered above; I have spent that time in minutes in the direct care of this critically ill patient, excluding procedure time. ED Disposition Clinical Impression: Altered mental status, Hypertension, Leukocytosis Disposition: DC-01 TO HOME OR SELFCARE Is pt being admited?: No Condition: Stable Instructions: Hypertension, Adult, Hypertension (ED) Referrals: PRIMARY CARE, [Primary Care Provider] - 3-5 Days
[2020-04-08] MEDS ORDERED: SODIUM CHLORIDE 0.9% 1000 ML 1,000 ML IV ONE (09:30)
--- NOTE | 2020-04-08 10:08 | Cat Scan Report ---
CT head/brain wo con INDICATION / CLINICAL INFORMATION: 74 years Female; R hand weakness. TECHNIQUE: Routine CT head without contrast. All CT scans at this location are performed using CT dos e reduction for ALARA by means of automated exposure control. COMPARISON: The study is compared to the previous CT of 01/20/2020 FINDINGS: BRAIN / INTRACRANIAL CONTENTS: There have been continued interval evolutionary changes of the infarct along the left AUBREY distribution from 01/20/2020 with developing encephalomalacia. There appears be mi ld ex vacuo dilatation of the anterior left lateral ventricle. Otherwise, the ventricular system joe g with the choroid plexus appear unchanged. There is no CT evidence of acute intracranial hemorrhage. ORBITS: No significant abnormality of visualized orbits. SINUSES / MASTOIDS: No significant abnormality in the visualized paranasal sinuses or mastoid air anna ls. CRANIOCERVICAL JUNCTION: No significant abnormality. ADDITIONAL FINDINGS: None. IMPRESSION: 1. There have been continued interval evolutionary changes of the left AUBREY infarct from 01/20/2020 wit h developing encephalomalacia. Signer Name: Gianni Lugo MD Signed: 04/08/2020 10:04 AM Workstation Name: [id number]
[2020-04-08 10:17] LABS: Basophils # (Auto) 0.1 K/mm3 (0.0-0.1); Basophils % (Auto) 0.6 % (0.0-1.8); Eosinophils # (Auto) 0.2 K/mm3 (0.0-0.4); Hematocrit 45.3 % (30.3-42.9); Hemoglobin 15.5 gm/dl (10.1-14.3); Lymphocytes # (Auto) 2.1 K/mm3 (1.2-5.4); Lymphocytes % (Auto) 11.8 % (13.4-35.0); Mean Corpuscular HGB Conc 34 % (30-34); Mean Corpuscular Volume 95 fl (79-97); Monocytes # (Auto) 1.2 K/mm3 (0.0-0.8); Monocytes % (Auto) 6.8 % (0.0-7.3); Platelet Count 280 K/mm3 (140-440); Red Blood Count 4.77 M/mm3 (3.65-5.03); Red Cell Distribution Width 13.3 % (13.2-15.2)
[2020-04-08 10:32] LABS: Blood Urea Nitrogen 16 mg/dL (7-17); Calcium 8.8 mg/dL (8.4-10.2); Hemolysis Index 333
[2020-04-08 10:40] LABS: BUN/Creatinine Ratio 32
[2020-04-08 11:00] LABS: Bilirubin,Urine NEG (Negative); Blood,Urine NEG (Negative); Color,Urine Yellow (Yellow); Protein,Urine <15 mg/dL mg/dL (Negative); Urobilinogen,Urine < 2.0 mg/dL (<2.0)
--- NOTE | 2020-04-08 12:10 | XRay Report ---
CHEST 1 VIEW INDICATION / CLINICAL INFORMATION: weakness. COMPARISON: 01/18/2020 FINDINGS: SUPPORT DEVICES: None. HEART / MEDIASTINUM: No significant abnormality. LUNGS / PLEURA: No significant pulmonary or pleural abnormality. No pneumothorax. ADDITIONAL FINDINGS: No significant additional findings. IMPRESSION: 1. No acute findings. Signer Name: Omar York MD Signed: 04/08/2020 12:06 PM Workstation Name: [id number]
[2020-04-08 12:16] VITALS: BP 188/87
== END 2020-04-08 14:00 | disposition home or self-care (01) ==
LOC: ED 08:51
DX: D72.829 Elevated white blood cell count, unspecified (principal); R41.82 Altered mental status, unspecified; I10 Essential (primary) hypertension; E11.9 Type 2 diabetes mellitus without complications; M19.90 Unspecified osteoarthritis, unspecified site; Z91.041 Radiographic dye allergy status; Z88.8 Allergy status to other drugs, medicaments and biological substances; Z79.899 Other long term (current) drug therapy; Z90.49 Acquired absence of other specified parts of digestive tract; Z98.890 Other specified postprocedural states; Z90.710 Acquired absence of both cervix and uterus
CPT/HCPCS: 36415; 70450; 71045; 80048; 81001; 84484; 85025; 96360; 99285; J7030

== ENCOUNTER 2020-07-29 09:00 | Outpatient (CLI) | payer MEDICARE ==
[2020-07-29 09:36] LABS: Basophils % (Auto) 0.3 % (0.0-1.8); Eosinophils # (Auto) 0.1 K/mm3 (0.0-0.4); Eosinophils % (Auto) 1.2 % (0.0-4.3); Hematocrit 44.6 % (30.3-42.9); Hemoglobin 15.4 gm/dl (10.1-14.3); Lymphocytes # (Auto) 2.2 K/mm3 (1.2-5.4); Lymphocytes % (Auto) 18.2 % (13.4-35.0); Mean Corpuscular HGB Conc 35 % (30-34); Mean Corpuscular Volume 98 fl (79-97); Monocytes % (Auto) 8.4 % (0.0-7.3); Platelet Count 229 K/mm3 (140-440); Red Blood Count 4.53 M/mm3 (3.65-5.03); Red Cell Distribution Width 14.4 % (13.2-15.2)
[2020-07-29 10:03] LABS: Alanine Aminotransferase 10 units/L (7-56); Albumin 3.8 g/dL (3.9-5); Blood Urea Nitrogen 15 mg/dL (7-17); Calcium 8.8 mg/dL (8.4-10.2); HDL Cholesterol 45 mg/dL (40-59); Hemolysis Index 8; LDL Cholesterol,Direct 90 mg/dL (50-130)
[2020-07-29 10:04] LABS: BUN/Creatinine Ratio 21
== END 2020-07-29 09:01 | disposition home or self-care (01) ==
LOC: LAB 09:00
PROVIDERS: ATTEND Internal Medicine
DX: E11.9 Type 2 diabetes mellitus without complications (principal); I10 Essential (primary) hypertension; E78.5 Hyperlipidemia, unspecified; F63.9 Impulse disorder, unspecified
CPT/HCPCS: 36415; 80053; 80061; 83036; 85025

== ENCOUNTER 2020-10-13 09:07 | Outpatient (CLI) | payer MEDICARE ==
[2020-10-13 10:19] LABS: Alanine Aminotransferase 10 units/L (7-56); Albumin 4.3 g/dL (3.9-5); Blood Urea Nitrogen 19 mg/dL (7-17); Calcium 9.4 mg/dL (8.4-10.2); Chol/HDL Ratio 2.44 %; HDL Cholesterol 52 mg/dL (40-59); Hemolysis Index 8; LDL Cholesterol,Direct 68 mg/dL (50-130)
[2020-10-13 10:25] LABS: Basophils % (Auto) 0.4 % (0.0-1.8); Eosinophils # (Auto) 0.2 K/mm3 (0.0-0.4); Eosinophils % (Auto) 1.8 % (0.0-4.3); Hematocrit 46.7 % (30.3-42.9); Lymphocytes # (Auto) 1.8 K/mm3 (1.2-5.4); Mean Corpuscular HGB Conc 34 % (30-34); Mean Corpuscular Volume 98 fl (79-97); Monocytes # (Auto) 0.9 K/mm3 (0.0-0.8); Monocytes % (Auto) 7.8 % (0.0-7.3); Platelet Count 242 K/mm3 (140-440); Red Blood Count 4.75 M/mm3 (3.65-5.03); Red Cell Distribution Width 12.6 % (13.2-15.2)
[2020-10-13 11:03] LABS: BUN/Creatinine Ratio 27
[2020-10-16 15:02] LABS: Vitamin D, 25-OH, D2 10 ng/mL
== END 2020-10-13 09:08 | disposition home or self-care (01) ==
LOC: LAB 09:07
PROVIDERS: ATTEND Internal Medicine
DX: Z13.29 Encounter for screening for other suspected endocrine disorder (principal); I10 Essential (primary) hypertension; E55.9 Vitamin D deficiency, unspecified; E78.5 Hyperlipidemia, unspecified; E11.9 Type 2 diabetes mellitus without complications
CPT/HCPCS: 36415; 80053; 80061; 82306; 83036; 84443; 85025

== ENCOUNTER 2021-03-02 09:42 | Outpatient (CLI) | payer MEDICARE ==
[2021-03-02 10:11] LABS: Basophils % (Auto) 0.5 % (0.0-1.8); Eosinophils # (Auto) 0.3 K/mm3 (0.0-0.4); Eosinophils % (Auto) 3.3 % (0.0-4.3); Hematocrit 40.9 % (30.3-42.9); Hemoglobin 13.3 gm/dl (10.1-14.3); Lymphocytes # (Auto) 1.8 K/mm3 (1.2-5.4); Mean Corpuscular HGB Conc 33 % (30-34); Mean Corpuscular Volume 87 fl (79-97); Monocytes # (Auto) 0.8 K/mm3 (0.0-0.8); Platelet Count 257 K/mm3 (140-440); Red Blood Count 4.68 M/mm3 (3.65-5.03); Red Cell Distribution Width 20.4 % (13.2-15.2)
[2021-03-02 10:47] LABS: Alanine Aminotransferase 12 units/L (7-56); Albumin 4.3 g/dL (3.9-5); Blood Urea Nitrogen 22 mg/dL (7-17); Calcium 8.8 mg/dL (8.4-10.2); Chol/HDL Ratio 2.41 %; HDL Cholesterol 55 mg/dL (40-59); Hemolysis Index 4; LDL Cholesterol,Direct 70 mg/dL (50-130)
[2021-03-02 10:52] LABS: BUN/Creatinine Ratio 31
== END 2021-03-02 09:43 | disposition home or self-care (01) ==
LOC: LAB 09:42
PROVIDERS: ATTEND Internal Medicine
DX: D72.829 Elevated white blood cell count, unspecified (principal); E11.9 Type 2 diabetes mellitus without complications; E78.5 Hyperlipidemia, unspecified
CPT/HCPCS: 36415; 80053; 80061; 82607; 82747; 83036; 85025

== ENCOUNTER 2021-07-21 11:49 | Outpatient (CLI) | payer MEDICARE ==
[2021-07-21 12:23] LABS: Basophils % (Auto) 0.3 % (0.0-1.8); Eosinophils # (Auto) 0.1 K/mm3 (0.0-0.4); Eosinophils % (Auto) 1.7 % (0.0-4.3); Hematocrit 41.4 % (30.3-42.9); Lymphocytes # (Auto) 1.6 K/mm3 (1.2-5.4); Lymphocytes % (Auto) 22.1 % (13.4-35.0); Mean Corpuscular HGB Conc 34 % (30-34); Mean Corpuscular Volume 99 fl (79-97); Monocytes # (Auto) 0.7 K/mm3 (0.0-0.8); Monocytes % (Auto) 9.9 % (0.0-7.3); Platelet Count 217 K/mm3 (140-440); Red Blood Count 4.17 M/mm3 (3.65-5.03); Red Cell Distribution Width 13.1 % (13.2-15.2)
[2021-07-21 12:46] LABS: Alanine Aminotransferase 9 units/L (7-56); Albumin 4.1 g/dL (3.9-5); Blood Urea Nitrogen 19 mg/dL (7-17); Calcium 8.9 mg/dL (8.4-10.2); Chol/HDL Ratio 2.72 %; HDL Cholesterol 44 mg/dL (40-59); Hemolysis Index 11; LDL Cholesterol,Direct 63 mg/dL (50-130)
[2021-07-21 12:48] LABS: BUN/Creatinine Ratio 32
== END 2021-07-21 11:50 | disposition home or self-care (01) ==
LOC: LAB 11:49
PROVIDERS: ATTEND Internal Medicine
DX: D72.829 Elevated white blood cell count, unspecified (principal); E11.9 Type 2 diabetes mellitus without complications; E78.5 Hyperlipidemia, unspecified
CPT/HCPCS: 36415; 80053; 80061; 82607; 82747; 83036; 85025

== ENCOUNTER 2021-08-13 13:30 | Outpatient (CLI) | payer MEDICARE ==
--- NOTE | 2021-08-13 18:18 | Magnetic Resonance Report ---
MR brain wo/w con INDICATION / CLINICAL INFORMATION: 76 years Female; I69.951. TECHNIQUE: Multiplanar, multisequence MR images of the brain were obtained. COMPARISON: The study is compared to the previous MRI of 01/19/2020. FINDINGS: BRAIN / INTRACRANIAL CONTENTS: There have been interval evolutionary changes of the infarct along the medial left frontal lobe along the left AUBREY distribution from 01/20/2020 with developing encephalomal acia. There is otherwise moderate cerebral white matter disease with confluent findings along the per iventricular regions most consistent with microvascular angiopathy. The diffusion imaging reveals no evidence of acute infarction at. There is mild to moderate cerebral atrophy with associated prominence of the ventricular system. No e xtra-axial fluid collections or significant mass effect is identified. There appear to be a small chr onic ischemic changes within the right cerebellar hemisphere. No intracranial enhancing lesions are a ppreciated. CRANIOCERVICAL JUNCTION: No significant abnormality. VASCULAR FLOW-VOIDS: The intracranial ICAs and vertebrobasilar system grossly demonstrate appropriate signal voids. ORBITS: No significant abnormality of visualized orbits. SINUSES / MASTOIDS: No significant abnormality in the visualized paranasal sinuses or mastoid air anna ls. ADDITIONAL FINDINGS: None. IMPRESSION: 1. There have been interval evolutionary changes of the left AUBREY infarct from 01/20/2020 with developi ng encephalomalacia. 2. 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 Signer Name: Gianni Lugo MD Signed: 08/13/2021 6:13 PM Workstation Name: [id number]
== END 2021-08-13 13:31 | disposition home or self-care (01) ==
LOC: MRI 13:30
PROVIDERS: ATTEND Specialist
DX: I69.951 Hemiplegia and hemiparesis following unspecified cerebrovascular disease affecting right dominant side (principal); G31.9 Degenerative disease of nervous system, unspecified; I67.9 Cerebrovascular disease, unspecified
CPT/HCPCS: 70553; A9575

== ENCOUNTER 2021-12-01 11:15 | Outpatient (CLI) | payer MEDICARE ==
[2021-12-01 12:46] LABS: Chol/HDL Ratio 3.21 %
== END 2021-12-01 11:16 | disposition home or self-care (01) ==
LOC: LABHHL 11:15
PROVIDERS: ATTEND Internal Medicine
DX: E11.9 Type 2 diabetes mellitus without complications (principal); E78.5 Hyperlipidemia, unspecified
CPT/HCPCS: 36415; 80061; 83036